=== PATIENT | female | born 1990 | race Caucasian/White ===

== ENCOUNTER 2023-11-28 14:19 | Inpatient (IN) | payer OTHER, MEDICAID, SELFPAY ==
[2023-11-28] VITALS (59 sets, daily range): BP systolic 95–129; BP diastolic 50–81; PULSE 96–138; RESP 9–23; TEMP 36.4–36.8; O2SAT 91–100; BMI 21.2
--- NOTE | 2023-11-28 14:42 | ED_ITS ---
HPI - General Adult General Chief complaint: Toxicology Problem Stated complaint: ETOH Withdrawl Time Seen by Provider: 11/28/23 14:41 History of Present Illness HPI narrative: 33-year-old woman presents for help with severe alcohol withdrawal. She has had seizures with withdrawal past. She states the last time she went to alcohol rehab was she believes in January of last year. She states that she typically drinks half a gal of whiskey daily. It sounds like she is staying with her uncle as her primary care is in [place]. They have been trying to wean her off the alcohol and she presents with confusion/delirium, significant tremor and increasing concerns for severe DTs. She is significantly confused, brought in by medics. No additional medical records are available Related Data Allergies Allergy/AdvReac Type Severity Reaction Status Date / Time No Known Drug Allergies Allergy Verified 11/28/23 15:18 Review of Systems Review of Systems ROS Unobtainable: Unobtainable due to mental condition Patient History Medical History (Updated 11/28/23 @ 18:28 by Jenise Irvin MD) Alcohol use disorder Exam Initial Vital Signs Initial Vital Signs: Vital Signs Pulse Rate 112 H 11/28/23 14:25 Pulse Oximetry 100 11/28/23 14:25 General: Disheveled, chronically ill-appearing, pale, significant puffiness around her eyes HEENT: Moist mucous membranes, normal sclera with reactive pupils, mild rotatory nystagmus bilaterally is appreciated Neck: No JVD, supple Respiratory: Lungs are clear to auscultation, no wheezing no rales no rhonchi. Full and symmetrical air movement Cardiac: Tachycardic without murmurs Abdomen: Soft, nontender, no flank pain Skin: Pale, cool Neurologic: She is moving all extremities, she is confused, tremulous, CIWA score is 29 (alcohol level is currently pending) Extremities: No trauma, cool peripherally Psych: Cooperative, confused Course Orders Ordered: ED Orders 11/28/23 14:46 Complete Blood Count AUTO DIFF Stat Comprehensive Metabolic Panel Stat Ethanol (ETOH) Stat Lipase Stat Magnesium Stat Urinalysis and Microscopic Stat 11/28/23 14:47 EKG-12 Lead Stat 11/28/23 15:01 CT head/brain wo con Stat Discontinued Medications Thiamine HCl 100 mg/ Sodium (Chloride) 101 mls @ 404 mls/hr IV NOW ONE Stop: 11/28/23 14:47 Last Infusion: 11/28/23 15:56 Dose: Infused Sodium Chloride (Normal Saline 0.9%) 1,000 mls @ 1,000 mls/hr IV BOLUS ONE Stop: 11/28/23 15:45 Last Admin: 11/28/23 15:21 Dose: 1,000 mls/hr Phenobarbital (Phenobarbital 65 Mg/Ml Vial) 260 mg IV NOW ONE Stop: 11/28/23 15:02 Last Admin: 11/28/23 15:21 Dose: 260 mg Vital Signs Vital signs: Vital Signs - 8 hr 11/28/23 14:25 11/28/23 14:30 11/28/23 14:30 Temperature Pulse Rate 112 H 112 H Respiratory Rate 21 Blood Pressure 118/76 Pulse Oximetry 100 100 11/28/23 14:46 11/28/23 15:00 11/28/23 15:00 Temperature 97.6 F Pulse Rate 109 H 114 H Respiratory Rate 16 20 Blood Pressure 117/71 111/68 Pulse Oximetry 100 11/28/23 15:28 11/28/23 15:28 11/28/23 15:30 Temperature Pulse Rate 116 H 117 H Respiratory Rate 18 17 Blood Pressure 126/74 Pulse Oximetry 100 100 11/28/23 15:30 11/28/23 15:35 11/28/23 15:35 Temperature Pulse Rate 113 H Respiratory Rate 15 Blood Pressure 112/65 121/73 Pulse Oximetry 100 11/28/23 15:40 11/28/23 15:40 11/28/23 15:45 Temperature Pulse Rate 110 H 109 H Respiratory Rate 16 16 Blood Pressure 117/71 Pulse Oximetry 100 100 11/28/23 15:45 11/28/23 15:50 11/28/23 15:50 Temperature Pulse Rate 115 H Respiratory Rate 16 Blood Pressure 117/72 123/80 Pulse Oximetry 100 11/28/23 15:55 11/28/23 15:55 11/28/23 16:00 Temperature Pulse Rate 109 H 113 H Respiratory Rate 16 16 Blood Pressure 114/72 Pulse Oximetry 100 99 11/28/23 16:01 11/28/23 16:01 11/28/23 16:05 Temperature Pulse Rate 113 H Respiratory Rate 15 Blood Pressure 115/81 119/60 Pulse Oximetry 99 11/28/23 16:05 11/28/23 16:10 11/28/23 16:10 Temperature Pulse Rate 114 H 112 H Respiratory Rate 16 17 Blood Pressure 116/65 Pulse Oximetry 99 100 11/28/23 16:15 11/28/23 16:15 11/28/23 16:20 Temperature Pulse Rate 104 H 102 H Respiratory Rate 18 17 Blood Pressure 108/62 Pulse Oximetry 100 100 11/28/23 16:20 Temperature Pulse Rate Respiratory Rate Blood Pressure 104/63 Pulse Oximetry Medical Decision Making Lab Data 11/28/23 15:00 11/28/23 15:00 Labs: Lab Results 11/28/23 Range/Units 15:00 WBC 2.9 L (4.5-11.0) X10^3/uL RBC 4.43 (4.0-5.2) X10^6/uL Hgb 14.4 (12.0-16.0) g/dL Hct 42.0 (36-46) % MCV 94.6 (80-100) fL MCH 32.4 (26-34) PG MCHC 34.3 (30-36) % RDW 13.5 (11.6-14.8) % Plt Count 101 L (150-400) X10^3/uL Neut % (Auto) 74.0 (50-75) % Lymph % (Auto) 23.4 L (25-40) % [place] % (Auto) 2.2 L (3-14) % Eos % (Auto) 0.0 L (2-4) % Baso % (Auto) 0.4 (0-2) % Neut # (Auto) 2100 (4188-1315) /uL Lymph # (Auto) 700 L (5962-1110) /uL [place] # (Auto) 100 (0-900) /uL Eos # (Auto) 0 (0-450) /uL Baso # (Auto) 0 (0-100) /uL Sodium 132 L (137-145) mmol/L Potassium 4.8 (3.4-5.1) mmol/L Chloride 91 L (98-107) mmol/L Carbon Dioxide 14 L (22-32) mmol/L BUN 14 (7-17) mg/dL Creatinine 0.52 (0.52-1.04) mg/dL Estimated GFR > 60 (>60) mL/min BUN/Creatinine Ratio 26.9 H (6-22) Glucose 84 (70-100) mg/dL Calcium 8.7 (8.4-10.2) mg/dL Magnesium 2.2 (1.6-2.3) mg/dL Total Bilirubin 1.4 H (0.2-1.3) mg/dL AST 363 H (14-36) IU/L ALT 180 H (<35) IU/L Alkaline Phosphatase 123 (38-126) U/L Total Protein 9.8 H (6.3-8.2) g/dL Albumin 5.3 H (3.5-5.0) g/dL Globulin 4.5 H (1.7-4.1) g/dL Albumin/Globulin Ratio 1.2 (1.0-2.8) Lipase 342 H (23-300) U/L Ethyl Alcohol 390 H ( - 10) mg/dL Imaging Data CT scan - head: Radiologist's Impression: PROCEDURE: CT HEAD/BRAIN WO CON INDICATIONS: altered mental status, alcohol intoxication, falls TECHNIQUE: Noncontrast 4.5 mm thick angled axial sections acquired from the foramen magnum to the vertex, with coronal and sagittal reformats. For radiation dose reduction, the following was used: automated exposure control, adjustment of mA and/or kV according to patient size. COMPARISON: None. FINDINGS: Image quality: Diagnostic. CSF spaces: Basal cisterns are patent. No extra-axial fluid collections. Ventricles are normal in size and shape. Brain: No midline shift. No intracranial masses or hemorrhage. Martinez-white matter interface is normal. Left temporal tip encephalomalacia is likely posttraumatic. Skull and face: Calvarium and visualized facial bones are intact, without suspicious lesions. Sinuses: Visualized sinuses and mastoids are clear. 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 No acute intracranial process. Dictated by: Luis Alberto Chowdary M.D. on 11/28/2023 at 15:52 MDM Narrative Medical decision making narrative: CC: Requesting help with alcohol withdrawal Complicating co-morbidities: History of severe alcohol use disorder, at least a 5th of whiskey daily. History of seizures with previous alcohol withdrawal Data collected from: patient Social determinants of health that may influence the patients condition: Housing situation is unclear at this point Medical records reviewed: Notes from [facility] indicate that patient has a history of alcohol withdrawal seizures, prior subarachnoid hemorrhage, history of thrombocytopenia. Most recent records are from 2020 Differential considered: Delirium tremens, seizure, moderate alcohol withdrawal symptoms Exam documented above, pertinent findings include: Patient is significantly disheveled, tachycardic, tremulous, smelling of urine with a depends in place that is thoroughly saturated. She has mild rotatory nystagmus. Lab Test results independently reviewed as above. Pertinent findings CBC shows leukocytopenia at 2.9, no evidence of anemia platelets slightly low at 101 Chemistries are notable for AST elevated at 363, ALT elevated at 180, total bilirubin elevated at 1.4 all consistent with an alcoholic hepatitis. Lipase is at 342 Alcohol level is at 390 with CIWA score 29 Independently reviewed EKG: Sinus tachycardia at a rate of 113, QTC is 488, no acute ischemic Imaging studies independently reviewed: CT scan of the head shows posttraumatic encephalomalacia of the left temporal tip with no acute intracranial process appreciated Consultations: Discussed with Dr. Story, hospitalist. Agrees with admission, recommends beginning Precedex, ICU admission. Requests PT and INR be drawn. Treatments: Fluids, IV thiamine, CT scan and blood work. Re-evaluations: Discussed findings and concerns with patient and her aunt. Again confirmed that she does want to stay in the hospital, she will commit to staying in the hospital and will not leave against medical advice. Discussion: 33-year-old woman with severe alcohol use disorder significant problems with withdrawal, currently alcohol level at 390 and significantly elevated CIWA score. CT scan of the head does not show significant pathology. She has been given phenobarbital for withdrawal symptoms. She does have an alcoholic hepatitis as well as a leukocytosis without evidence of bacterial infection. She is not hypotensive. She presents via medics requesting help with her acute alcohol detox and has needed hospitalizations previously. will discuss care with the hospitalist service. Discharge Plan Departure Patient Disposition: Admitted As Inpatient Clinical Impression: Alcohol withdrawal syndrome Qualifiers: Complication of substance-induced condition: with perceptual disturbance Q ualified Code(s): F10.932 - Alcohol use, unspecified with withdrawal with perceptual disturbance
--- NOTE | 2023-11-28 15:01 | DI.CT.S_ITS ---
PROCEDURE: CT HEAD/BRAIN WO CON INDICATIONS: altered mental status, alcohol intoxication, falls TECHNIQUE: Noncontrast 4.5 mm thick angled axial sections acquired from the foramen magnum to the vertex, with coronal and sagittal reformats. For radiation dose reduction, the following was used: automated exposure control, adjustment of mA and/or kV according to patient size. COMPARISON: None. FINDINGS: Image quality: Diagnostic. CSF spaces: Basal cisterns are patent. No extra-axial fluid collections. Ventricles are normal in size and shape. Brain: No midline shift. No intracranial masses or hemorrhage. [place]-white matter interface is normal. Left temporal tip encephalomalacia is likely posttraumatic. Skull and face: Calvarium and visualized facial bones are intact, without suspicious lesions. Sinuses: Visualized sinuses and mastoids are clear. 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 No acute intracranial process. Dictated by: Luis Alberto Chowdary M.D. on 11/28/2023 at 15:52 Approved by: Luis Alberto Chowdary M.D. on 11/28/2023 at 15:53
[2023-11-28] MEDS: THIAMINE 100 MG in SODIUM CHLORIDE 0.9% 100 ML 404 MG IV (15:21)
[2023-11-28] MEDS: PHENobarbital 65 MG/ML VIAL 260 MG IV (15:21)
[2023-11-28] MEDS: SODIUM CHLORIDE 0.9% 1,000 ML 1000 ML IV (15:21)
[2023-11-28 15:28] LABS: Add Manual Diff / Slide Review NO; Basophils Absolute Auto 0 /uL (0-100); Basophils Percent Auto 0.4 % (0-2); Eosinophils Absolute Auto 0 /uL (0-450); Hemoglobin 14.4 g/dL (12.0-16.0); Lymphocytes Absolute Auto 700 /uL (1100-4500); Lymphocytes Percent Auto 23.4 % (25-40); Mean Corpuscular HGB Conc 34.3 % (30-36); Mean Corpuscular Hemoglobin 32.4 PG (26-34); Mean Corpuscular Volume 94.6 fL (80-100); Monocytes Absolute Auto 100 /uL (0-900); Monocytes Percent Auto 2.2 % (3-14); Neutrophils Absolute Auto 2100 /uL (1500-7000); Platelet Count 101 X10^3/uL (150-400); Red Blood Cell Count 4.43 X10^6/uL (4.0-5.2); Red Cell Distribution Width 13.5 % (11.6-14.8); White Blood Cell Count 2.9 X10^3/uL (4.5-11.0)
[2023-11-28 15:44] LABS: Alanine Aminotransferase 180 IU/L (<35); Albumin 5.3 g/dL (3.5-5.0); Albumin Globulin Ratio 1.2 (1.0-2.8); Alkaline Phosphatase 123 U/L (38-126); Aspartate Aminotransferase 363 IU/L (14-36); BUN Creatinine Ratio 26.9 (6-22); Bilirubin Total 1.4 mg/dL (0.2-1.3); Blood Urea Nitrogen 14 mg/dL (7-17); Calcium 8.7 mg/dL (8.4-10.2); Carbon Dioxide 14 mmol/L (22-32); Chloride 91 mmol/L (98-107); Estimated Glomerular Filt Rate > 60 mL/min (>60); Globulin 4.5 g/dL (1.7-4.1); Glucose 84 mg/dL (70-100); Lipase 342 U/L (23-300); Magnesium 2.2 mg/dL (1.6-2.3); Potassium 4.8 mmol/L (3.4-5.1); Sodium 132 mmol/L (137-145); Total Protein 9.8 g/dL (6.3-8.2)
[2023-11-28 15:51] LABS: Ethanol (ETOH) 390 mg/dL; HEMOLYSIS 24 (0-50)
[2023-11-28] MEDS: ONDANSETRON 4 MG/2 ML INJ IV ×2 (18:12→20:26)
[2023-11-28 18:17] LABS: INR 0.9 (0.9-1.3); Prothrombin Time 9.9 SECONDS (9.4-12.5)
[2023-11-28 18:20] LABS: PTT Partial Thromboplastin Tim 33 SECONDS (25.1-36.5)
[2023-11-28] MEDS: dexmedeTOMIDine in 0.9 % NaCL 400 MCG/100 ML PLAST..BAG IV ×2 (18:27→20:21)
--- NOTE | 2023-11-28 19:13 | PC.NURSE ---
report given to rigoberto.
--- NOTE | 2023-11-28 19:15 | PC.NURSE ---
Admit Note Patient arrived to room 230 at 1900 via stretcher. Transferred to bed via slider board. Drowsy but awakens to voice, able to answer some questions. Oriented to room and to bed/tv/call light controls. Call light within reach. SpO2 in the upper 90s, RA. ST in the 130s. Pt brief and bedding saturated with urine, cleansed and new purewick/brief placed, incontinent. Seizure pads in place, suction set up in room. Precedex gtt infusing. Bed alarm on. Pt belongings in room including 2 necklaces on person and cell phone and middle school guidance counselor present.
[2023-11-28 19:24] LABS: Appearance Urine UA CLEAR; Bilirubin Urine UA NEGATIVE (NEGATIVE); Color Urine UA YELLOW; Glucose Urine UA NEGATIVE (Negative); Ketones Urine UA 3+ (NEGATIVE); Leukocyte Esterase Urine UA NEGATIVE (NEGATIVE); Nitrite Urine UA NEGATIVE (Negative); Occult Blood Urine UA 3+ (Negative); Protein Urine UA 3+ (Negative); Specific Gravity Urine UA >=1.030 (1.000-1.035)
[2023-11-28 19:36] LABS: pH Urine UA 5.5 (4.5-8.0)
[2023-11-28 19:43] LABS: Bacteria Urine None Seen; Culture Indicated Urine Cult Not Indicated; RBC Urine 1-5/HPF (0-5/HPF); Squamous Epithelial Cell Urine 0-1 /HPF (0-5/HPF); Urine Volume 10mL (spun); WBC Urine None Seen (0-5/HPF)
[2023-11-28] MEDS: LORazepam 2 MG/ML INJ IV (20:26)
[2023-11-28 20:47] LABS: MRSA (Nasal) PCR Not Detected (Not Detect)
--- NOTE | 2023-11-28 22:14 | P.HP_ITS ---
History of Present Illness History of Present Illness Date Patient Seen: 11/28/23 Time Patient Seen: 21:40 Chief complaint: ETOH Withdrawl Narrative: Declines to talk to me. Awakens to voice, post Ativan for YUMIKO 17 now tired and wants to sleep. Per ER provider She states the last time she went to alcohol rehab was she believes in January of last year. She states that she typically drinks half a gal of whiskey daily. It sounds like she is staying with her uncle as her primary care is in [place]. They have been trying to wean her off the alcohol and she presents with confusion/delirium, significant tremor and increasing concerns for severe DTs. She is significantly confused, brought in by medics. Previous records from [facility] note chronic alcohol use disorder with history of alcohol withdrawal seizure disorder, mulitple admission for alchohol withdrawal. Previously trailed on antiepilectic medications for possible epileptic syndrome not asosciated with alcohol withdrawal without adherence or improvement. ED evaluated revealed elevated EtOH level with withdrawal symptoms. 1L NS bolus, phenobarbital 260mg x1, Zofran IV x1 PFSH Medical History (Updated 11/28/23 @ 18:28 by Jenise Irvin MD) Alcohol use disorder Social History household members: family Smoking Status: Current every day smoker alcohol intake: current Meds Home Medications and Allergies Allergies Allergy/AdvReac Type Severity Reaction Status Date / Time No Known Drug Allergies Allergy Verified 11/28/23 15:18 Review of Systems Review of Systems Narrative: Unable to obtain as patient declines Exam Vital Signs (past 8 hours): - 11/28/23 14:25 11/28/23 14:30 11/28/23 14:30 Temperature Pulse Rate 112 H 112 H Respiratory Rate 21 Blood Pressure 118/76 Pulse Oximetry 100 100 Oxygen Delivery Method Oxygen Flow Rate 11/28/23 14:46 11/28/23 15:00 11/28/23 15:00 Temperature 97.6 F Pulse Rate 109 H 114 H Respiratory Rate 16 20 Blood Pressure 117/71 111/68 Pulse Oximetry 100 Oxygen Delivery Method Oxygen Flow Rate 11/28/23 15:28 11/28/23 15:28 11/28/23 15:30 Temperature Pulse Rate 116 H 117 H Respiratory Rate 18 17 Blood Pressure 126/74 Pulse Oximetry 100 100 Oxygen Delivery Method Oxygen Flow Rate 11/28/23 15:30 11/28/23 15:35 11/28/23 15:35 Temperature Pulse Rate 113 H Respiratory Rate 15 Blood Pressure 112/65 121/73 Pulse Oximetry 100 Oxygen Delivery Method Oxygen Flow Rate 11/28/23 15:40 11/28/23 15:40 11/28/23 15:45 Temperature Pulse Rate 110 H 109 H Respiratory Rate 16 16 Blood Pressure 117/71 Pulse Oximetry 100 100 Oxygen Delivery Method Oxygen Flow Rate 11/28/23 15:45 11/28/23 15:50 11/28/23 15:50 Temperature Pulse Rate 115 H Respiratory Rate 16 Blood Pressure 117/72 123/80 Pulse Oximetry 100 Oxygen Delivery Method Oxygen Flow Rate 11/28/23 15:55 11/28/23 15:55 11/28/23 16:00 Temperature Pulse Rate 109 H 113 H Respiratory Rate 16 16 Blood Pressure 114/72 Pulse Oximetry 100 99 Oxygen Delivery Method Oxygen Flow Rate 11/28/23 16:01 11/28/23 16:01 11/28/23 16:05 Temperature Pulse Rate 113 H Respiratory Rate 15 Blood Pressure 115/81 119/60 Pulse Oximetry 99 Oxygen Delivery Method Oxygen Flow Rate 11/28/23 16:05 11/28/23 16:10 11/28/23 16:10 Temperature Pulse Rate 114 H 112 H Respiratory Rate 16 17 Blood Pressure 116/65 Pulse Oximetry 99 100 Oxygen Delivery Method Oxygen Flow Rate 11/28/23 16:15 11/28/23 16:15 11/28/23 16:20 Temperature Pulse Rate 104 H 102 H Respiratory Rate 18 17 Blood Pressure 108/62 Pulse Oximetry 100 100 Oxygen Delivery Method Oxygen Flow Rate 11/28/23 16:20 11/28/23 16:55 11/28/23 16:55 Temperature Pulse Rate 123 H Respiratory Rate 15 Blood Pressure 104/63 126/73 Pulse Oximetry 99 Oxygen Delivery Method Oxygen Flow Rate 11/28/23 17:00 11/28/23 17:00 11/28/23 17:05 Temperature Pulse Rate 115 H 120 H Respiratory Rate 16 16 Blood Pressure 113/68 Pulse Oximetry 99 99 Oxygen Delivery Method Oxygen Flow Rate 11/28/23 17:05 11/28/23 17:10 11/28/23 17:10 Temperature Pulse Rate 110 H Respiratory Rate 17 Blood Pressure 113/72 110/68 Pulse Oximetry 97 Oxygen Delivery Method Oxygen Flow Rate 11/28/23 17:15 11/28/23 17:15 11/28/23 17:20 Temperature Pulse Rate 109 H 108 H Respiratory Rate 16 16 Blood Pressure 107/65 Pulse Oximetry 97 96 Oxygen Delivery Method Oxygen Flow Rate 11/28/23 17:20 11/28/23 17:25 11/28/23 17:25 Temperature Pulse Rate 109 H Respiratory Rate 17 Blood Pressure 109/65 106/63 Pulse Oximetry 96 Oxygen Delivery Method Oxygen Flow Rate 11/28/23 17:30 11/28/23 17:30 11/28/23 17:35 Temperature Pulse Rate 110 H 126 H Respiratory Rate 16 14 Blood Pressure 112/64 Pulse Oximetry 96 96 Oxygen Delivery Method Oxygen Flow Rate 11/28/23 17:35 11/28/23 17:40 11/28/23 17:40 Temperature Pulse Rate 129 H Respiratory Rate 15 Blood Pressure 122/66 111/67 Pulse Oximetry 97 Oxygen Delivery Method Oxygen Flow Rate 11/28/23 17:45 11/28/23 17:45 11/28/23 17:50 Temperature Pulse Rate 134 H 131 H Respiratory Rate 19 18 Blood Pressure 118/71 Pulse Oximetry 97 97 Oxygen Delivery Method Oxygen Flow Rate 11/28/23 17:50 11/28/23 17:55 11/28/23 17:55 Temperature Pulse Rate 138 H Respiratory Rate 17 Blood Pressure 121/73 121/77 Pulse Oximetry 96 Oxygen Delivery Method Oxygen Flow Rate 11/28/23 18:00 11/28/23 18:00 11/28/23 18:05 Temperature Pulse Rate 135 H 135 H Respiratory Rate 17 18 Blood Pressure 123/74 Pulse Oximetry 97 98 Oxygen Delivery Method Oxygen Flow Rate 11/28/23 18:05 11/28/23 18:10 11/28/23 18:10 Temperature Pulse Rate 138 H Respiratory Rate 23 Blood Pressure 123/78 128/81 Pulse Oximetry 97 Oxygen Delivery Method Oxygen Flow Rate 11/28/23 18:15 11/28/23 18:15 11/28/23 18:20 Temperature Pulse Rate 129 H 127 H Respiratory Rate 21 21 Blood Pressure 124/81 Pulse Oximetry 98 98 Oxygen Delivery Method Oxygen Flow Rate 11/28/23 18:20 11/28/23 18:25 11/28/23 18:25 Temperature Pulse Rate 121 H Respiratory Rate 18 Blood Pressure 122/79 115/73 Pulse Oximetry 99 Oxygen Delivery Method Oxygen Flow Rate 11/28/23 18:30 11/28/23 18:30 11/28/23 18:35 Temperature Pulse Rate 124 H Respiratory Rate 18 Blood Pressure 116/73 119/72 Pulse Oximetry 98 Oxygen Delivery Method Oxygen Flow Rate 11/28/23 18:40 11/28/23 18:40 11/28/23 18:45 Temperature Pulse Rate 127 H 124 H Respiratory Rate 18 16 Blood Pressure 124/67 Pulse Oximetry 97 98 Oxygen Delivery Method Oxygen Flow Rate 11/28/23 18:45 11/28/23 18:50 11/28/23 18:50 Temperature Pulse Rate 118 H Respiratory Rate 16 Blood Pressure 119/60 105/57 L Pulse Oximetry 97 Oxygen Delivery Method Oxygen Flow Rate 11/28/23 18:55 11/28/23 18:55 11/28/23 18:59 Temperature Pulse Rate 116 H 116 H Respiratory Rate 17 14 Blood Pressure 102/57 L Pulse Oximetry 97 97 Oxygen Delivery Method Oxygen Flow Rate 11/28/23 18:59 11/28/23 19:00 11/28/23 19:00 Temperature Pulse Rate 116 H Respiratory Rate 15 Blood Pressure 101/56 L 102/55 L Pulse Oximetry 97 Oxygen Delivery Method Oxygen Flow Rate 11/28/23 19:04 11/28/23 19:04 11/28/23 19:13 Temperature Pulse Rate 130 H 96 H Respiratory Rate 12 16 Blood Pressure 102/66 102/55 L Pulse Oximetry 96 Oxygen Delivery Method Oxygen Flow Rate 11/28/23 19:13 11/28/23 19:25 11/28/23 19:30 Temperature 98.2 F Pulse Rate 128 H Respiratory Rate 18 Blood Pressure 102/66 129/68 Pulse Oximetry 97 Oxygen Delivery Method Room Air Oxygen Flow Rate 0 11/28/23 19:30 11/28/23 20:00 11/28/23 20:00 Temperature Pulse Rate 131 H 131 H Respiratory Rate 21 23 Blood Pressure 121/66 Pulse Oximetry 97 96 Oxygen Delivery Method Oxygen Flow Rate 11/28/23 20:30 11/28/23 21:00 11/28/23 21:05 Temperature Pulse Rate 116 H 118 H Respiratory Rate 17 22 Blood Pressure 95/50 L Pulse Oximetry 95 91 Oxygen Delivery Method Oxygen Flow Rate 11/28/23 21:05 11/28/23 21:08 11/28/23 21:30 Temperature Pulse Rate 119 H 118 H 123 H Respiratory Rate 9 L 19 19 Blood Pressure 95/50 L Pulse Oximetry 96 96 Oxygen Delivery Method Oxygen Flow Rate 11/28/23 22:00 11/28/23 22:00 Temperature Pulse Rate 133 H Respiratory Rate 19 Blood Pressure 96/55 L Pulse Oximetry 95 Oxygen Delivery Method Oxygen Flow Rate Oxygen Delivery Method Room Air Oxygen Flow Rate 0 Const Orientation: alert Other: somnolent HENUT Head: normal to inspection Eyes EOM: EOM intact bilaterally Neck Neck: normal visual inspection Chest Chest: normal inspection of the chest Resp Effort & Inspection: normal respiratory effort Auscultation: clear to auscultation bilaterally Cardio Rate: tachycardic Rhythm: regular rhythm GI Inspection: normal to inspection Auscultation: normal bowel sounds Skin General: no rashes or lesions noted Neuro General: moves all extremities Extrem General: normal to inspection and No edema Objective Imaging CT scan - head: My impression: NAP Radiologist's impression: IMPRESSION: 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 No acute intracranial process. Dictated by: Luis Alberto Chowdary M.D. on 11/28/2023 at 15:52 Approved by: Luis Alberto Chowdary M.D. on 11/28/2023 at 15:53 Labs 11/28/23 15:00 11/28/23 15:00 Labs: Laboratory Results - last 24 hr 11/28/23 11/28/23 11/28/23 15:00 18:56 19:05 WBC 2.9 L RBC 4.43 Hgb 14.4 Hct 42.0 MCV 94.6 MCH 32.4 MCHC 34.3 RDW 13.5 Plt Count 101 L Neut % (Auto) 74.0 Lymph % (Auto) 23.4 L [place] % (Auto) 2.2 L Eos % (Auto) 0.0 L Baso % (Auto) 0.4 Neut # (Auto) 2100 Lymph # (Auto) 700 L [place] # (Auto) 100 Eos # (Auto) 0 Baso # (Auto) 0 PT 9.9 INR 0.9 APTT 33 Sodium 132 L Potassium 4.8 Chloride 91 L Carbon Dioxide 14 L BUN 14 Creatinine 0.52 Estimated GFR > 60 BUN/Creatinine Ratio 26.9 H Glucose 84 Calcium 8.7 Magnesium 2.2 Total Bilirubin 1.4 H AST 363 H ALT 180 H Alkaline Phosphatase 123 Total Protein 9.8 H Albumin 5.3 H Globulin 4.5 H Albumin/Globulin Ratio 1.2 Lipase 342 H Urine Color Yellow Urine Appearance Clear Urine pH 5.5 Ur Specific [place] >=1.030 H Urine Protein 3+ H Urine Glucose (UA) Negative Urine Ketones 3+ H Urine Occult Blood 3+ H Urine Nitrate Negative Urine Bilirubin Negative Urine Urobilinogen 1.0 Ur Leukocyte Esterase Negative Urine RBC 1-5/hpf Urine WBC None seen Ur Squamous Epith Cells 0-1 /hpf Urine Bacteria None seen Ur Culture Indicated? Cult not indicated Vol Urine Centrifuged 10ml (spun) Nasal Screen MRSA (PCR) Not detected Ethyl Alcohol 390 H Assessment & Plan Assessment and plan (1) Alcohol withdrawal syndrome: Qualifiers: Complication of substance-induced condition: with perceptual disturbance Qualified Code(s): F10.932 - Alcohol use, unspecified with withdrawal with perceptual disturbance Status: Acute Plan Acute alcohol withdrawal syndrome Chronic alcohol dependence with thrombocytopenia, elevated transaminase, elevated bilirubin, mild hyponatremia - EtOH level 390 - Lipase 342 with benign abdominal exam, no evidence of acute process - Admit to ICU, cardiac monitoring, serial neuro checks - Head CT withotu acute process, no evidence of infectious etiology for leukopenia - Precedex started in ED - continue Precedex, start CIWA with Ativan prn and Valium scheduled; wean Precedex off and titrate Valium as indicated - Clonidine prn for tachycardia - IV fluids, encourage adequate oral intake - Antiemetic prn - LA, Magnesium level pending - TeleIntensivist consulted by provider team
[2023-11-28] MEDS: diazePAM 5 MG TABLET 10 MG PO (23:33)
[2023-11-28] MEDS: cloNIDine 0.1 MG TABLET PO (23:33)
[2023-11-28] MEDS: LACTATED RINGERS 1,000 ML 100 ML IV (23:34)
[2023-11-29] VITALS (54 sets, daily range): BP systolic 84–133; BP diastolic 51–81; PULSE 79–135; RESP 13–27; TEMP 36.4–38.6; O2SAT 92–98
[2023-11-29 00:29] LABS: MRSA (Nasal) PCR Not Detected (Not Detect)
[2023-11-29 04:57] LABS: Hematocrit 27.4 % (36-46); Hemoglobin 9.6 g/dL (12.0-16.0); Mean Corpuscular Volume 94.4 fL (80-100); Platelet Count 56 X10^3/uL (150-400); Red Cell Distribution Width 13.5 % (11.6-14.8)
[2023-11-29 05:00] LABS: Lactate (Lactic Acid) 1.5 mmol/L (0.7-2.1)
[2023-11-29 05:01] LABS: Alanine Aminotransferase 103 IU/L (<35); Albumin 3.3 g/dL (3.5-5.0); Albumin Globulin Ratio 1.1 (1.0-2.8); Alkaline Phosphatase 69 U/L (38-126); Aspartate Aminotransferase 223 IU/L (14-36); Blood Urea Nitrogen 10 mg/dL (7-17); Calcium 7.7 mg/dL (8.4-10.2); Carbon Dioxide 21 mmol/L (22-32); Chloride 94 mmol/L (98-107); Estimated Glomerular Filt Rate > 60 mL/min (>60); Globulin 2.9 g/dL (1.7-4.1); Glucose 159 mg/dL (70-100); HEMOLYSIS < 15 (0-50); Magnesium 1.6 mg/dL (1.6-2.3); Potassium 4.1 mmol/L (3.4-5.1); Sodium 126 mmol/L (137-145); Total Protein 6.2 g/dL (6.3-8.2)
[2023-11-29 05:14] LABS: Add Manual Diff / Slide Review YES; White Blood Cell Count 1.9 X10^3/uL (4.5-11.0)
[2023-11-29] MEDS: LORazepam 2 MG/ML INJ IV ×4 (05:17→22:04)
[2023-11-29 05:38] LABS: Neutrophils Absolute Manual 912 /uL (3000-5900); Platelet Estimate Decreased on smear; Total Cells Counted 100
[2023-11-29 05:40] LABS: RBC Morphology Normal Morphology
[2023-11-29 07:40] LABS: BUN Creatinine Ratio 18.6 (6-22); Blood Urea Nitrogen 8 mg/dL (7-17); Calcium 7.8 mg/dL (8.4-10.2); Carbon Dioxide 25 mmol/L (22-32); Chloride 94 mmol/L (98-107); Estimated Glomerular Filt Rate > 60 mL/min (>60); Glucose 106 mg/dL (70-100); HEMOLYSIS < 15 (0-50); Sodium 126 mmol/L (137-145)
[2023-11-29] MEDS: ONDANSETRON 4 MG/2 ML INJ IV (08:07)
[2023-11-29] MEDS: diazePAM 5 MG TABLET 10 MG PO (08:09)
[2023-11-29] MEDS: FOLIC ACID 1 MG TABLET PO (08:09)
[2023-11-29] MEDS: MULTIVITAMIN 1 TABLET 1 TAB PO (08:10)
[2023-11-29] MEDS: THIAMINE 100 MG TABLET PO (08:10)
--- NOTE | 2023-11-29 08:33 | DI.RAD.S_ITS ---
PROCEDURE: XR CHEST 1V INDICATIONS: fever TECHNIQUE: One view of the chest was acquired. COMPARISON: None. FINDINGS: Surgical changes and devices: None. Lungs and pleura: Lungs are clear. No pleural effusions or pneumothorax. Mediastinum: Mediastinal contours appear normal. Heart size is normal. Bones and chest wall: No suspicious bony lesions. Overlying soft tissues appear unremarkable. IMPRESSION: No acute cardiopulmonary abnormality is seen. Dictated by: Claudine Paul M.D. on 11/29/2023 at 17:45 Approved by: Claudine Paul M.D. on 11/29/2023 at 17:46
[2023-11-29 10:09] LABS: Appearance Urine UA CLEAR; Bilirubin Urine UA NEGATIVE (NEGATIVE); Color Urine UA YELLOW; Glucose Urine UA TRACE g/dL (Negative); Ketones Urine UA 2+ (NEGATIVE); Leukocyte Esterase Urine UA NEGATIVE (NEGATIVE); Nitrite Urine UA NEGATIVE (Negative); Occult Blood Urine UA 1+ (Negative); Protein Urine UA 1+ (Negative)
[2023-11-29 10:13] LABS: pH Urine UA 6.5 (4.5-8.0)
[2023-11-29 10:22] LABS: Urine Volume 10mL (spun)
[2023-11-29 10:23] LABS: Bacteria Urine Few (2-10); Culture Indicated Urine Cult Not Indicated; RBC Urine 0-1/HPF (0-5/HPF); Squamous Epithelial Cell Urine None Seen (0-5/HPF); WBC Urine 0-1/HPF (0-5/HPF)
[2023-11-29 11:08] LABS: Pregnancy Test Urine Negative (Negative)
[2023-11-29 11:35] LABS: Lipase 265 U/L (23-300)
[2023-11-29 11:52] LABS: HCG Quantitative /Beta subunit < 2.4 mIU/mL; Procalcitonin 0.44 ng/mL (<0.5)
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
[2023-11-29] MEDS: chlordiazePOXIDE 25 MG CAPSULE 50 MG PO ×2 (12:35→17:16)
[2023-11-29] MEDS: MAGNESIUM CHLORIDE 64 MG TABLET 128 MG PO (12:35)
[2023-11-29] MEDS: PIPERACILLIN/TAZO 3.375 GM in SODIUM CHLORIDE 0.9% 100 ML IV ×2 (12:56→20:09)
[2023-11-29 14:45] LABS: Add Manual Diff / Slide Review NO; Basophils Absolute Auto 0 /uL (0-100); Basophils Percent Auto 0.5 % (0-2); Eosinophils Absolute Auto 0 /uL (0-450); Hematocrit 25.5 % (36-46); Lymphocytes Absolute Auto 900 /uL (1100-4500); Lymphocytes Percent Auto 38.3 % (25-40); Mean Corpuscular HGB Conc 35.2 % (30-36); Mean Corpuscular Hemoglobin 32.8 PG (26-34); Mean Corpuscular Volume 93.2 fL (80-100); Monocytes Absolute Auto 200 /uL (0-900); Monocytes Percent Auto 9.9 % (3-14); Neutrophils Absolute Auto 1200 /uL (1500-7000); Neutrophils Percent Auto 50.3 % (50-75); Platelet Count 47 X10^3/uL (150-400); Red Blood Cell Count 2.73 X10^6/uL (4.0-5.2); Red Cell Distribution Width 13.1 % (11.6-14.8); White Blood Cell Count 2.4 X10^3/uL (4.5-11.0)
[2023-11-29] MEDS: NICOTINE 14 PATCH 14 MG TOP (15:41)
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
[2023-11-29] MEDS: dexmedeTOMIDine in 0.9 % NaCL 400 MCG/100 ML PLAST..BAG 6.151 MCG IV (17:16)
--- NOTE | 2023-11-29 18:48 | P.PN_ITS ---
Subjective Subjective Interval history: Patient still lethargic on precedex drip. test negative. Lipase improved on recheck. Temp of 101.7F overnight, CXR and UA normal. Continue empiric zosyn until blood cutlures result negative. Exam Vital Signs (past 8 hours): - 11/29/23 11:00 11/29/23 11:00 11/29/23 11:12 Temperature Pulse Rate 116 H Respiratory Rate 24 Blood Pressure 121/70 Pulse Oximetry 97 Oxygen Delivery Method Room Air 11/29/23 11:30 11/29/23 12:00 11/29/23 12:00 Temperature Pulse Rate 104 H 97 H Respiratory Rate 18 15 Blood Pressure 101/57 L Pulse Oximetry 97 98 Oxygen Delivery Method 11/29/23 12:30 11/29/23 13:00 11/29/23 13:00 Temperature Pulse Rate 102 H 96 H Respiratory Rate 16 18 Blood Pressure 104/56 L Pulse Oximetry 96 Oxygen Delivery Method 11/29/23 13:30 11/29/23 13:44 11/29/23 14:00 Temperature 98.7 F Pulse Rate 96 H Respiratory Rate 17 Blood Pressure 133/58 L Pulse Oximetry 97 Oxygen Delivery Method 11/29/23 14:00 11/29/23 14:30 11/29/23 15:00 Temperature Pulse Rate 113 H 98 H 104 H Respiratory Rate 18 16 16 Blood Pressure Pulse Oximetry 98 97 96 Oxygen Delivery Method 11/29/23 15:00 11/29/23 15:12 11/29/23 15:30 Temperature Pulse Rate 103 H Respiratory Rate 15 Blood Pressure 119/66 Pulse Oximetry 96 Oxygen Delivery Method Room Air 11/29/23 16:00 11/29/23 16:00 11/29/23 16:00 Temperature Pulse Rate 93 H 92 H Respiratory Rate 14 14 Blood Pressure 101/59 L 101/59 L Pulse Oximetry 96 Oxygen Delivery Method 11/29/23 16:30 11/29/23 17:00 11/29/23 17:00 Temperature Pulse Rate 92 H 108 H Respiratory Rate 15 14 Blood Pressure 102/81 Pulse Oximetry 95 97 Oxygen Delivery Method 11/29/23 17:30 11/29/23 17:49 11/29/23 18:00 Temperature 99.6 F Pulse Rate 93 H Respiratory Rate 14 Blood Pressure 100/59 L Pulse Oximetry 97 Oxygen Delivery Method 11/29/23 18:00 Temperature Pulse Rate 79 Respiratory Rate 14 Blood Pressure Pulse Oximetry 95 Oxygen Delivery Method Oxygen Delivery Method Room Air Oxygen Flow Rate 0 Const Orientation: alert Other: somnolent HENGA Head: normal to inspection Eyes EOM: EOM intact bilaterally Neck Neck: normal visual inspection Chest Chest: normal inspection of the chest Resp Effort & Inspection: normal respiratory effort Auscultation: clear to auscultation bilaterally Cardio Rate: tachycardic Rhythm: regular rhythm GI Inspection: normal to inspection Auscultation: normal bowel sounds Skin General: no rashes or lesions noted Neuro General: moves all extremities Extrem General: normal to inspection and No edema Objective Labs 11/29/23 14:30 11/29/23 07:17 Labs: Laboratory Results - last 24 hr 11/28/23 11/28/23 11/28/23 18:56 19:05 23:04 WBC RBC Hgb Hct MCV MCH MCHC RDW Plt Count Neut % (Auto) Lymph % (Auto) [place] % (Auto) Eos % (Auto) Baso % (Auto) Neut # (Auto) Lymph # (Auto) [place] # (Auto) Eos # (Auto) Baso # (Auto) Total Counted Seg Neutrophils % Band Neutrophils % Lymphocytes % (Manual) Monocytes % (Manual) Eosinophils % (Manual) Neutrophils # (Manual) Platelet Estimate RBC Morphology Sodium Potassium Chloride Carbon Dioxide BUN Creatinine Estimated GFR BUN/Creatinine Ratio Glucose Lactate Calcium Magnesium Total Bilirubin AST ALT Alkaline Phosphatase Total Protein Albumin Globulin Albumin/Globulin Ratio Lipase Procalcitonin HCG, Quant Urine Color Yellow Urine Appearance Clear Urine pH 5.5 Ur Specific [place] >=1.030 H Urine Protein 3+ H Urine Glucose (UA) Negative Urine Ketones 3+ H Urine Occult Blood 3+ H Urine Nitrate Negative Urine Bilirubin Negative Urine Urobilinogen 1.0 Ur Leukocyte Esterase Negative Urine RBC 1-5/hpf Urine WBC None seen Ur Squamous Epith Cells 0-1 /hpf Urine Bacteria None seen Ur Culture Indicated? Cult not indicated Vol Urine Centrifuged 10ml (spun) Urine Test Nasal Screen MRSA (PCR) Not detected Not detected 11/29/23 11/29/23 11/29/23 04:35 07:17 09:52 WBC 1.9 L* RBC 2.90 L Hgb 9.6 L Hct 27.4 L MCV 94.4 MCH 33.0 MCHC 35.0 RDW 13.5 Plt Count 56 L Neut % (Auto) Not Reportable Lymph % (Auto) Not Reportable [place] % (Auto) Not Reportable Eos % (Auto) Not Reportable Baso % (Auto) Not Reportable Neut # (Auto) Lymph # (Auto) Not Reportable [place] # (Auto) Not Reportable Eos # (Auto) Baso # (Auto) Not Reportable Total Counted 100 Seg Neutrophils % 47.0 Band Neutrophils % 1.0 L Lymphocytes % (Manual) 41.0 Monocytes % (Manual) 9.0 Eosinophils % (Manual) 2.0 Neutrophils # (Manual) 912 L Platelet Estimate Decreased on smear RBC Morphology Normal morphology Sodium 126 L 126 L Potassium 4.1 4.0 Chloride 94 L 94 L Carbon Dioxide 21 L 25 BUN 10 8 Creatinine 0.50 L 0.43 L Estimated GFR > 60 > 60 BUN/Creatinine Ratio 20.0 18.6 Glucose 159 H 106 H Lactate 1.5 Calcium 7.7 L 7.8 L Magnesium 1.6 Total Bilirubin 1.0 AST 223 H ALT 103 H Alkaline Phosphatase 69 D Total Protein 6.2 L Albumin 3.3 L Globulin 2.9 Albumin/Globulin Ratio 1.1 Lipase 265 Procalcitonin 0.44 HCG, Quant < 2.4 Urine Color Yellow Urine Appearance Clear Urine pH 6.5 Ur Specific [place] 1.010 Urine Protein 1+ H Urine Glucose (UA) Trace H Urine Ketones 2+ H Urine Occult Blood 1+ H Urine Nitrate Negative Urine Bilirubin Negative Urine Urobilinogen 1.0 Ur Leukocyte Esterase Negative Urine RBC 0-1/hpf Urine WBC 0-1/hpf Ur Squamous Epith Cells None seen Urine Bacteria Few (2-10) H Ur Culture Indicated? Cult not indicated Vol Urine Centrifuged 10ml (spun) Urine Test Negative Nasal Screen MRSA (PCR) 11/29/23 11/29/23 10:35 14:30 WBC 2.4 L RBC 2.73 L Hgb 9.0 L Hct 25.5 L MCV 93.2 MCH 32.8 MCHC 35.2 RDW 13.1 Plt Count 47 L Neut % (Auto) 50.3 D Lymph % (Auto) 38.3 [place] % (Auto) 9.9 Eos % (Auto) 1.0 L Baso % (Auto) 0.5 Neut # (Auto) 1200 L Lymph # (Auto) 900 L [place] # (Auto) 200 Eos # (Auto) 0 Baso # (Auto) 0 Total Counted Seg Neutrophils % Band Neutrophils % Lymphocytes % (Manual) Monocytes % (Manual) Eosinophils % (Manual) Neutrophils # (Manual) Platelet Estimate RBC Morphology Sodium Potassium Chloride Carbon Dioxide BUN Creatinine Estimated GFR BUN/Creatinine Ratio Glucose Lactate Calcium Magnesium Total Bilirubin AST ALT Alkaline Phosphatase Total Protein Albumin Globulin Albumin/Globulin Ratio Lipase Procalcitonin HCG, Quant Cancelled Urine Color Urine Appearance Urine pH Ur Specific [place] Urine Protein Urine Glucose (UA) Urine Ketones Urine Occult Blood Urine Nitrate Urine Bilirubin Urine Urobilinogen Ur Leukocyte Esterase Urine RBC Urine WBC Ur Squamous Epith Cells Urine Bacteria Ur Culture Indicated? Vol Urine Centrifuged Urine Test Nasal Screen MRSA (PCR) [facility] Medical History (Updated 11/28/23 @ 18:28 by Jenise Irvin MD) Alcohol use disorder Social History household members: family Smoking Status: Current every day smoker alcohol intake: current Assessment & Plan Assessment & Plan narrative: Acute alcohol withdrawal syndrome, severe Chronic alcohol dependence with thrombocytopenia, elevated transaminase, elevated bilirubin, mild hyponatremia - EtOH level 390 - Lipase 342 with benign abdominal exam, no evidence of acute process, repeat normal - Head CT withotu acute process, no evidence of infectious etiology for leukopenia - Precedex started in ED, will continue with ativan PRN per CIWA - start librium 50mg q6h - IV fluids, encourage adequate oral intake - Antiemetic prn - LA, Magnesium level 1.6, continue trend - TeleIntensivist consulted as well Sepsis -febrile to 101.7F, WBC 2.4, unknown source -CXR and UA normal -blood cultures pending -continue zosyn for now Dispo: ICU
--- NOTE | 2023-11-29 20:36 | P.ICUMDRN_ITS ---
- Date Patient Seen: 11/29/23 :: This patient was seen via real time interactive two-way audiovisual telecommunic ation. Note: Remains on precedex gtt for alcohol withdrawal. Current RASS is -1. D/w bedside RN to titrate precedex to seek RASS goal -1 to 0.
[2023-11-30] VITALS (58 sets, daily range): BP systolic 90–139; BP diastolic 56–96; PULSE 69–123; RESP 5–33; TEMP 36.3–36.9; O2SAT 87–100
[2023-11-30] MEDS: chlordiazePOXIDE 25 MG CAPSULE 50 MG PO ×5 (00:01→23:44)
[2023-11-30] MEDS: PIPERACILLIN/TAZO 3.375 GM in SODIUM CHLORIDE 0.9% 100 ML IV ×2 (04:49→12:45)
[2023-11-30 05:53] LABS: Add Manual Diff / Slide Review NO; Basophils Absolute Auto 0 /uL (0-100); Basophils Percent Auto 0.5 % (0-2); Eosinophils Absolute Auto 0 /uL (0-450); Eosinophils Percent Auto 1.4 % (2-4); Hematocrit 25.7 % (36-46); Hemoglobin 8.9 g/dL (12.0-16.0); Lymphocytes Absolute Auto 900 /uL (1100-4500); Lymphocytes Percent Auto 37.1 % (25-40); Mean Corpuscular HGB Conc 34.5 % (30-36); Mean Corpuscular Hemoglobin 32.7 PG (26-34); Mean Corpuscular Volume 94.6 fL (80-100); Monocytes Absolute Auto 200 /uL (0-900); Monocytes Percent Auto 6.8 % (3-14); Neutrophils Absolute Auto 1300 /uL (1500-7000); Neutrophils Percent Auto 54.2 % (50-75); Platelet Count 55 X10^3/uL (150-400); Red Blood Cell Count 2.72 X10^6/uL (4.0-5.2); Red Cell Distribution Width 13.4 % (11.6-14.8); White Blood Cell Count 2.5 X10^3/uL (4.5-11.0)
[2023-11-30 06:05] LABS: Alanine Aminotransferase 95 IU/L (<35); Albumin 3.2 g/dL (3.5-5.0); Albumin Globulin Ratio 1.1 (1.0-2.8); Alkaline Phosphatase 66 U/L (38-126); Aspartate Aminotransferase 201 IU/L (14-36); BUN Creatinine Ratio 10.5 (6-22); Bilirubin Total 0.8 mg/dL (0.2-1.3); Blood Urea Nitrogen 4 mg/dL (7-17); Calcium 8.6 mg/dL (8.4-10.2); Carbon Dioxide 34 mmol/L (22-32); Chloride 98 mmol/L (98-107); Estimated Glomerular Filt Rate > 60 mL/min (>60); Globulin 2.9 g/dL (1.7-4.1); Glucose 97 mg/dL (70-100); HEMOLYSIS < 15 (0-50); Magnesium 1.7 mg/dL (1.6-2.3); Potassium 3.1 mmol/L (3.4-5.1); Sodium 132 mmol/L (137-145); Total Protein 6.1 g/dL (6.3-8.2)
[2023-11-30] MEDS: MULTIVITAMIN 1 TABLET 1 TAB PO (08:47)
[2023-11-30] MEDS: THIAMINE 100 MG TABLET PO (08:48)
[2023-11-30] MEDS: NICOTINE 14 PATCH 14 MG TOP (08:48)
[2023-11-30] MEDS: FOLIC ACID 1 MG TABLET PO (08:48)
[2023-11-30] MEDS: MAGNESIUM SULFATE 2 GM/50 ML PIGGYBACK IV (09:54)
[2023-11-30] MEDS: POTASSIUM CHLORIDE IN WATER 10 MEQ/100 ML PIGGYBACK 100 MEQ IV ×4 (09:55→12:45)
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
--- NOTE | 2023-11-30 11:49 | DIET.CONS ---
Dietary Consultation Note Admission Date: 11/28/2023 18:35 Assessment: 33 y F admitted for alcohol withdrawal. Nutrition screened for low BMI. Met with pt at bedside. Pt is requesting food, informed RN as pt's diet order at time was clears. Dietary recall: she usually has 1 meal/eating time per day. Common foods include Quest bars, Fiber one cereals with blueberries, or sandwich. Majority of calories from 1/2 gal of whiskey she reported consuming daily in ER. She reports suffering from eating disorder like thoughts making it difficult to consume adequate intake in the past. Reports trying to gain weight, was 90 lb is now 115 lb. Ht: 170.18 cm Wt: 52.7 kg BMI: 21.2 UBW: Last BM: 11/28/23 (11/28/23 19:25) MNA: [place] Score: 17 Diet: 11/29/23 Dinner Clear Liquid Diet Diet Modifications: 11/30/23 Lunch General (Regular) Diet Diet Modifications: Food Texture: Level 7 - Regular Liquid Consistency: Level 0 - Thin Labs: RBC 2.72 X10^6/uL (4.0-5.2) L 11/30/23 05:45 Hgb 8.9 g/dL (12.0-16.0) L 11/30/23 05:45 Hct 25.7 % (36-46) L 11/30/23 05:45 Creatinine 0.38 mg/dL (0.52-1.04) L 11/30/23 05:45 Lactate 1.5 mmol/L (0.7-2.1) 11/29/23 04:35 Nutrition Diagnosis: Severe Chronic Protein Calorie Malnutrition r/t excessive alcohol intake as evidenced by <75% energy intake intake for > 1 month and majority of calories from alcohol (severe), substance withdrawal with high CIWA scores (15, 11), BMI of 18.2 (underweight). The patient is at much higher risk for medical and surgical complications because of their malnutrition. This increases the difficulty and complexity of medical and surgical interventions and increases the chances of poor outcomes such as morbidity and mortality. Interventions: 1. Encouraged adequate intake, multiple meals/day, high in protein and kcals 2. Assess for opportunity for further nutrition therapy as pt improves EER: [id number] kcals/day (30-35 kcals/kg) 80-90 g protein/day (1.5-1.7 g/kg) Monitoring/Evaluations: PO intakes, weight Electronically Signed by: Mercedes Daniels 11/30/23 11:49 Clinical Dietitian [address] [address]
[2023-11-30] MEDS: LORazepam 1 MG TABLET PO (14:54)
--- NOTE | 2023-11-30 16:03 | P.TELICUPN_ITS ---
Subjective Subjective IF CAMERA ACTIVATED, patient seen via real-time interactive audiovisual communication: Camera activated Consent obtained for tele-patented hogshead assembler care: Yes Patient Location: ICU Provider location (State): [place] Other participants/roles: RN Interval history: pt remains on precedex gtt this AM. she is improved though, and on low dose precedex. Current Medications Current Medications Medications: Home Medications buspirone 15 mg tablet 15 mg PO BID 11/29/23 [History] cholecalciferol (vitamin D3) 25 mcg (1,000 unit) capsule PO 11/29/23 [History] clonidine HCl 0.1 mg tablet 0.1 mg PO 3XD 11/29/23 [History] folic acid 1 mg tablet 1 mg PO DAILY 11/29/23 [History] gabapentin 300 mg capsule 300 mg PO 3XD 11/29/23 [History] gabapentin 400 mg capsule 400 mg PO 3XD 11/29/23 [History] hydroxyzine HCl 25 mg tablet 25 mg PO 3XD PRN anxiety 11/29/23 [History] norgestimate 0.25 mg-ethinyl estradiol 35 mcg tablet 1 tab PO DAILY 11/29/23 [History] vits no.130-ferrous fum 27 mg iron-folic acid 800 mcg tablet ( Vitamin) 1 tab PO DAILY 11/29/23 [History] sertraline 25 mg tablet PO 11/29/23 [History] thiamine HCl (vitamin B1) 100 mg tablet (Vitamin B-1) 100 mg PO DAILY 11/29/23 [History] Visit Medications (administered) Generic Name Dose Route Start Last Admin Trade Name Freq PRN Reason Stop Dose Admin Chlordiazepoxide HCl 50 mg 11/29/23 12:00 11/30/23 11:56 Chlordiazepoxide 25 Mg Capsule PO 50 mg Q6HR LARY Administration Folic Acid 1 mg 11/29/23 09:00 11/30/23 08:48 Folic Acid 1 Mg Tablet PO 1 mg DAILY LARY Administration Lorazepam 0 mg 11/28/23 19:13 11/29/23 22:04 Lorazepam 2 Mg/Ml Inj IV 2 mg CIWAPRN PRN Administration Alcohol Withdrawal Protocol Lorazepam 0 mg 11/28/23 19:13 11/30/23 14:54 Lorazepam 1 Mg Tablet PO 2 mg CIWAPRN PRN Administration Alcohol Withdrawal Protocol Multivitamins 1 tab 11/29/23 09:00 11/30/23 08:47 Multivitamin 1 Tablet PO 1 tab DAILY LARY Administration Thiamine HCl 100 mg 11/29/23 09:00 11/30/23 08:48 Thiamine 100 Mg Tablet PO 12/02/23 09:01 100 mg DAILY LARY Administration Objective Labs 11/30/23 05:45 11/30/23 05:45 Labs: Laboratory Results - last 24 hr 11/30/23 05:45 WBC 2.5 L RBC 2.72 L Hgb 8.9 L Hct 25.7 L MCV 94.6 MCH 32.7 MCHC 34.5 RDW 13.4 Plt Count 55 L Neut % (Auto) 54.2 Lymph % (Auto) 37.1 [place] % (Auto) 6.8 Eos % (Auto) 1.4 L Baso % (Auto) 0.5 Neut # (Auto) 1300 L Lymph # (Auto) 900 L [place] # (Auto) 200 Eos # (Auto) 0 Baso # (Auto) 0 Sodium 132 L Potassium 3.1 L Chloride 98 Carbon Dioxide 34 H BUN 4 L Creatinine 0.38 L Estimated GFR > 60 BUN/Creatinine Ratio 10.5 Glucose 97 Calcium 8.6 Magnesium 1.7 Total Bilirubin 0.8 AST 201 H ALT 95 H Alkaline Phosphatase 66 Total Protein 6.1 L Albumin 3.2 L Globulin 2.9 Albumin/Globulin Ratio 1.1 Exam Vital Signs (past 8 hours): - 11/30/23 08:30 11/30/23 09:00 11/30/23 09:00 Pulse Rate 75 91 H Respiratory Rate 10 L 16 Blood Pressure 105/77 Pulse Oximetry 100 100 Oxygen Delivery Method 11/30/23 09:30 11/30/23 10:00 11/30/23 10:00 Pulse Rate 89 85 Respiratory Rate 19 8 L Blood Pressure 99/69 99/69 Pulse Oximetry 100 99 Oxygen Delivery Method 11/30/23 10:30 11/30/23 11:00 11/30/23 11:00 Pulse Rate 77 82 Respiratory Rate 23 11 L Blood Pressure Pulse Oximetry 100 100 Oxygen Delivery Method Room Air 11/30/23 11:00 11/30/23 11:30 11/30/23 12:00 Pulse Rate 84 93 H Respiratory Rate 16 17 Blood Pressure 90/62 Pulse Oximetry 100 100 Oxygen Delivery Method 11/30/23 12:24 11/30/23 12:24 11/30/23 12:30 Pulse Rate 88 95 H Respiratory Rate 16 18 Blood Pressure 108/76 Pulse Oximetry 97 87 L Oxygen Delivery Method 11/30/23 13:00 11/30/23 13:01 11/30/23 13:01 Pulse Rate 104 H 104 H Respiratory Rate 18 20 Blood Pressure 135/86 135/86 Pulse Oximetry 89 L 89 L Oxygen Delivery Method 11/30/23 13:30 11/30/23 14:00 11/30/23 14:00 Pulse Rate 89 94 H Respiratory Rate 15 5 L Blood Pressure 106/73 Pulse Oximetry 98 96 Oxygen Delivery Method 11/30/23 14:30 11/30/23 15:00 11/30/23 15:30 Pulse Rate 88 100 H 100 H Respiratory Rate 18 21 15 Blood Pressure Pulse Oximetry 99 99 100 Oxygen Delivery Method 11/30/23 15:58 11/30/23 15:58 11/30/23 16:00 Pulse Rate 101 H 106 H Respiratory Rate 17 18 Blood Pressure 119/80 119/80 Pulse Oximetry 100 100 Oxygen Delivery Method Oxygen Delivery Method Room Air Oxygen Flow Rate 0 Narrative Exam Narrative: pt on precedex gtt she is awake, conversive but ill appearing tachycardic on monitor Assessment & Plan Assessment and plan (1) Alcohol withdrawal syndrome: Qualifiers: Complication of substance-induced condition: with perceptual disturbance Qualified Code(s): F10.932 - Alcohol use, unspecified with withdrawal with perceptual disturbance Status: Acute Plan continue precedex gtt she is on librium adat IVF thiamine and folic acid dvt ppx total cct 35 min
[2023-11-30] MEDS: ONDANSETRON 4 MG/2 ML INJ IV (16:21)
--- NOTE | 2023-11-30 16:43 | PM.PN.1 ---
Subjective Subjective Interval history: Patient more awake and alert today. Able to situp and eat a sandwich. She is very anxious to vape. Increased her nicotine patch. Precedex weaned off and downgraded from ICU. Exam Vital Signs (past 8 hours): - 11/30/23 09:00 11/30/23 09:00 11/30/23 09:30 Pulse Rate 91 H 89 Respiratory Rate 16 19 Blood Pressure 105/77 Pulse Oximetry 100 100 Oxygen Delivery Method 11/30/23 10:00 11/30/23 10:00 11/30/23 10:30 Pulse Rate 85 77 Respiratory Rate 8 L 23 Blood Pressure 99/69 99/69 Pulse Oximetry 99 100 Oxygen Delivery Method 11/30/23 11:00 11/30/23 11:00 11/30/23 11:00 Pulse Rate 82 Respiratory Rate 11 L Blood Pressure 90/62 Pulse Oximetry 100 Oxygen Delivery Method Room Air 11/30/23 11:30 11/30/23 12:00 11/30/23 12:24 Pulse Rate 84 93 H 88 Respiratory Rate 16 17 16 Blood Pressure Pulse Oximetry 100 100 97 Oxygen Delivery Method 11/30/23 12:24 11/30/23 12:30 11/30/23 13:00 Pulse Rate 95 H 104 H Respiratory Rate 18 18 Blood Pressure 108/76 Pulse Oximetry 87 L 89 L Oxygen Delivery Method 11/30/23 13:01 11/30/23 13:01 11/30/23 13:30 Pulse Rate 104 H 89 Respiratory Rate 20 15 Blood Pressure 135/86 135/86 Pulse Oximetry 89 L 98 Oxygen Delivery Method 11/30/23 14:00 11/30/23 14:00 11/30/23 14:30 Pulse Rate 94 H 88 Respiratory Rate 5 L 18 Blood Pressure 106/73 Pulse Oximetry 96 99 Oxygen Delivery Method 11/30/23 15:00 11/30/23 15:30 11/30/23 15:58 Pulse Rate 100 H 100 H Respiratory Rate 21 15 Blood Pressure 119/80 Pulse Oximetry 99 100 Oxygen Delivery Method 11/30/23 15:58 11/30/23 16:00 Pulse Rate 101 H 106 H Respiratory Rate 17 18 Blood Pressure 119/80 Pulse Oximetry 100 100 Oxygen Delivery Method Oxygen Delivery Method Room Air Oxygen Flow Rate 0 Const Orientation: alert Other: tremulous HENMT Head: normal to inspection Eyes EOM: EOM intact bilaterally Neck Neck: normal visual inspection Chest Chest: normal inspection of the chest Resp Effort & Inspection: normal respiratory effort Auscultation: clear to auscultation bilaterally Cardio Rate: tachycardic Rhythm: regular rhythm GI Inspection: normal to inspection Auscultation: normal bowel sounds Skin General: no rashes or lesions noted Neuro General: moves all extremities Extrem General: normal to inspection and No edema Objective Labs 11/30/23 05:45 11/30/23 05:45 Labs: Laboratory Results - last 24 hr 11/30/23 05:45 WBC 2.5 L RBC 2.72 L Hgb 8.9 L Hct 25.7 L MCV 94.6 MCH 32.7 MCHC 34.5 RDW 13.4 Plt Count 55 L Neut % (Auto) 54.2 Lymph % (Auto) 37.1 [place] % (Auto) 6.8 Eos % (Auto) 1.4 L Baso % (Auto) 0.5 Neut # (Auto) 1300 L Lymph # (Auto) 900 L [place] # (Auto) 200 Eos # (Auto) 0 Baso # (Auto) 0 Sodium 132 L Potassium 3.1 L Chloride 98 Carbon Dioxide 34 H BUN 4 L Creatinine 0.38 L Estimated GFR > 60 BUN/Creatinine Ratio 10.5 Glucose 97 Calcium 8.6 Magnesium 1.7 Total Bilirubin 0.8 AST 201 H ALT 95 H Alkaline Phosphatase 66 Total Protein 6.1 L Albumin 3.2 L Globulin 2.9 Albumin/Globulin Ratio 1.1 [facility] Medical History (Updated 11/28/23 @ 18:28 by Jenise Irvin MD) Alcohol use disorder Social History household members: family Smoking Status: Current every day smoker alcohol intake: current Assessment & Plan Assessment & Plan narrative: Acute alcohol withdrawal syndrome, severe Chronic alcohol dependence with thrombocytopenia, elevated transaminase, elevated bilirubin, mild hyponatremia - EtOH level 390 - Lipase 342 with benign abdominal exam, no evidence of acute process, repeat normal - Head CT withotu acute process, no evidence of infectious etiology for leukopenia - Precedex started in ED and now weaned off, will continue with ativan PRN per CIWA - started librium 50mg q6h - IV fluids, encourage adequate oral intake - Antiemetic prn - LA, Magnesium level 1.6, continue trend Daily vape use -nicotine patch Sepsis ruled out -febrile to 101.7F, WBC 2.4, unknown source -CXR and UA normal -blood cultures negative -zosyn now stopped Dispo: Downgraded from ICU. 2-3 days.
[2023-11-30] MEDS: LORazepam 2 MG/ML INJ IV ×3 (17:03→23:43)
[2023-12-01] VITALS (53 sets, daily range): BP systolic 90–122; BP diastolic 51–90; PULSE 64–121; RESP 12–34; TEMP 36.6–37.2; O2SAT 96–100
[2023-12-01] MEDS: LORazepam 2 MG/ML INJ IV ×4 (02:00→04:21)
[2023-12-01] MEDS: ONDANSETRON 4 MG/2 ML INJ IV (03:16)
[2023-12-01 04:57] LABS: Add Manual Diff / Slide Review NO; Basophils Absolute Auto 0 /uL (0-100); Basophils Percent Auto 0.4 % (0-2); Eosinophils Absolute Auto 0 /uL (0-450); Hematocrit 28.1 % (36-46); Hemoglobin 9.5 g/dL (12.0-16.0); Lymphocytes Absolute Auto 1000 /uL (1100-4500); Lymphocytes Percent Auto 29.5 % (25-40); Mean Corpuscular HGB Conc 33.7 % (30-36); Mean Corpuscular Hemoglobin 32.1 PG (26-34); Mean Corpuscular Volume 95.4 fL (80-100); Monocytes Absolute Auto 300 /uL (0-900); Monocytes Percent Auto 9.6 % (3-14); Neutrophils Absolute Auto 2100 /uL (1500-7000); Neutrophils Percent Auto 59.5 % (50-75); Platelet Count 71 X10^3/uL (150-400); Red Blood Cell Count 2.95 X10^6/uL (4.0-5.2); Red Cell Distribution Width 13.1 % (11.6-14.8); White Blood Cell Count 3.6 X10^3/uL (4.5-11.0)
[2023-12-01 05:10] LABS: Alanine Aminotransferase 91 IU/L (<35); Albumin 3.5 g/dL (3.5-5.0); Albumin Globulin Ratio 1.1 (1.0-2.8); Alkaline Phosphatase 78 U/L (38-126); Aspartate Aminotransferase 162 IU/L (14-36); Bilirubin Total 0.5 mg/dL (0.2-1.3); Blood Urea Nitrogen 6 mg/dL (7-17); Calcium 8.7 mg/dL (8.4-10.2); Carbon Dioxide 32 mmol/L (22-32); Chloride 98 mmol/L (98-107); Estimated Glomerular Filt Rate > 60 mL/min (>60); Globulin 3.2 g/dL (1.7-4.1); Glucose 129 mg/dL (70-100); HEMOLYSIS < 15 (0-50); Magnesium 1.7 mg/dL (1.6-2.3); Potassium 3.1 mmol/L (3.4-5.1); Sodium 134 mmol/L (137-145); Total Protein 6.7 g/dL (6.3-8.2)
[2023-12-01] MEDS: chlordiazePOXIDE 25 MG CAPSULE 50 MG PO ×4 (06:20→23:16)
--- NOTE | 2023-12-01 06:56 | PC.NURSE ---
Patient did not rest at all throughout the night. Alert and intermittently confused throughout the night, adamant and very anxious. Very weak tremulous. VSS, SR-ST, tolerating RA. Tolerating diet and excessively thirsty, zofran given x1. Rios intact output >3000 throughout the night. Midline to OLLIE. Patient impulsive trying to get out of bed constantly. Incontinent on bowel multiple times throughout the night. Bed alarm for safety. Call light within reach. CIWA 5-22 throughout the night, protocol followed. Patient reports having no pain.
--- NOTE | 2023-12-01 07:25 | PM.PN.1 ---
Subjective Subjective Interval history: She notes some neuropathy pain in her feet. She states that she lives in [place]. She denies any shortness a breath. Exam Vital Signs (past 8 hours): - 11/30/23 23:30 11/30/23 23:43 11/30/23 23:43 Temperature Pulse Rate 114 H 118 H Respiratory Rate 16 23 Blood Pressure 116/74 Pulse Oximetry 99 12/01/23 00:00 12/01/23 00:00 12/01/23 00:03 Temperature 98.3 F Pulse Rate 107 H 92 H Respiratory Rate 21 20 Blood Pressure Pulse Oximetry 100 12/01/23 00:30 12/01/23 01:00 12/01/23 01:30 Temperature Pulse Rate 96 H 114 H 111 H Respiratory Rate 18 17 21 Blood Pressure Pulse Oximetry 98 98 99 12/01/23 02:00 12/01/23 02:20 12/01/23 02:30 Temperature Pulse Rate 121 H 100 H 99 H Respiratory Rate 18 22 17 Blood Pressure Pulse Oximetry 99 100 12/01/23 03:00 12/01/23 03:30 12/01/23 04:00 Temperature Pulse Rate 105 H 106 H 112 H Respiratory Rate 29 H 16 22 Blood Pressure Pulse Oximetry 12/01/23 04:00 12/01/23 04:00 12/01/23 04:06 Temperature 99 F Pulse Rate 102 H 90 Respiratory Rate 13 21 Blood Pressure Pulse Oximetry 100 12/01/23 04:06 12/01/23 04:15 12/01/23 04:30 Temperature Pulse Rate 97 H 100 H Respiratory Rate 22 26 H Blood Pressure 120/84 120/84 Pulse Oximetry 12/01/23 04:41 Temperature Pulse Rate 84 Respiratory Rate 20 Blood Pressure Pulse Oximetry Oxygen Delivery Method Room Air Oxygen Flow Rate 0 Narrative Exam Narrative: NAD, awake and answering questions. Cachectic. She appears chronically ill. Lungs are clear, normal rate and effort. Heart is regular, no murmur gallop or rub. Abdomen is soft, non distended. Extremities are free of edema. Objective Labs 12/01/23 04:30 12/01/23 04:30 Labs: Laboratory Results - last 24 hr 12/01/23 04:30 WBC 3.6 L RBC 2.95 L Hgb 9.5 L Hct 28.1 L MCV 95.4 MCH 32.1 MCHC 33.7 RDW 13.1 Plt Count 71 L Neut % (Auto) 59.5 Lymph % (Auto) 29.5 [place] % (Auto) 9.6 Eos % (Auto) 1.0 L Baso % (Auto) 0.4 Neut # (Auto) 2100 Lymph # (Auto) 1000 L [place] # (Auto) 300 Eos # (Auto) 0 Baso # (Auto) 0 Sodium 134 L Potassium 3.1 L Chloride 98 Carbon Dioxide 32 BUN 6 L Creatinine 0.40 L Estimated GFR > 60 BUN/Creatinine Ratio 15.0 Glucose 129 H Calcium 8.7 Magnesium 1.7 Total Bilirubin 0.5 AST 162 H ALT 91 H Alkaline Phosphatase 78 Total Protein 6.7 Albumin 3.5 Globulin 3.2 Albumin/Globulin Ratio 1.1 [facility] Medical History (Updated 11/28/23 @ 18:28 by Jenise Irvin MD) Alcohol use disorder Social History household members: family Smoking Status: Current every day smoker alcohol intake: current Assessment & Plan Assessment & Plan narrative: 1. Severe withdrawal syndrome, present on admission and active. -CIWA and Precedex. -continue supportive measures. -vitamin repletion. 2. Chronic alcohol dependence, present on admission and active. - EtOH level 390 - Lipase 342 with benign abdominal exam, no evidence of acute process, repeat normal - Head CT with out acute process, no evidence of infectious etiology for leukopenia - Precedex started in ED and now weaned off, will continue with ativan PRN per CIWA - started librium 50mg q6h - LA, Magnesium level 1.6, continue trend 3. Hypokalemia, active. -replace and follow. 4. Hyponatremia, active -saline and follow. 5. Severe Chronic Protein Calorie Malnutrition r/t excessive alcohol intake as evidenced by <75% energy intake intake for > 1 month and majority of calories from alcohol (severe), substance withdrawal with high CIWA scores (15, 11), BMI of 18.2 (underweight). 6. Nicotine dependence (Daily vape use), active. -nicotine patch Sepsis ruled out -febrile to 101.7F, WBC 2.4, unknown source -CXR and UA normal -blood cultures negative -zosyn now stopped DISPO: She is still in fairly severe withdrawal, anticipate discharge in 2-3 days. Possibly December 03.
[2023-12-01] MEDS: POTASSIUM CHLORIDE 20 MEQ TAB 40 MEQ PO (07:31)
[2023-12-01] MEDS: dexmedeTOMIDine in 0.9 % NaCL 400 MCG/100 ML PLAST..BAG IV (07:32)
[2023-12-01] MEDS: MULTIVITAMIN 1 TABLET 1 TAB PO (08:14)
[2023-12-01] MEDS: NICOTINE 14 PATCH 21 MG TOP (08:14)
[2023-12-01] MEDS: THIAMINE 100 MG TABLET PO (08:14)
[2023-12-01] MEDS: FOLIC ACID 1 MG TABLET PO (08:14)
--- NOTE | 2023-12-01 08:53 | CM.DPC ---
DCP Cont.] Reviewed EMR and team rounds for pt's status updates. Pt is too altered and CIWA remains high for an FOOD SERVICE ASSOCIATE GRADY assessment at this time. Will continue to monitor and once she's stable and at cognitive baseline, we will move forward with the assessment and resources.
--- NOTE | 2023-12-01 11:54 | DI.RAD.S_ITS ---
PROCEDURE: XR CHEST 1V INDICATIONS: check for line placement TECHNIQUE: One view of the chest was acquired. COMPARISON: [facility], CR, XR CHEST 1V, 11/29/2023, 11:39. FINDINGS: Surgical changes and devices: Left PICC with the tip in the superior cavoatrial junction. Lungs and pleura: Lungs are clear. No pleural effusions or pneumothorax. Mediastinum: Mediastinal contours appear normal. Heart size is normal. Bones and chest wall: No suspicious bony lesions. Overlying soft tissues appear unremarkable. IMPRESSION: Appropriate line positioning. No pneumothorax. Dictated by: Shubham Mendoza M.D. on 12/01/2023 at 11:14 Approved by: Shubham Mendoza M.D. on 12/01/2023 at 11:17
[2023-12-01] MEDS: SODIUM CHLORIDE 0.9% FLUSH 10 ML IV (20:21)
[2023-12-02] VITALS (43 sets, daily range): BP systolic 93–114; BP diastolic 58–79; PULSE 60–95; RESP 5–23; TEMP 36.3–37.4; O2SAT 97–100
[2023-12-02] MEDS: dexmedeTOMIDine in 0.9 % NaCL 400 MCG/100 ML PLAST..BAG 5.27 MCG IV (00:58)
[2023-12-02 04:31] LABS: Add Manual Diff / Slide Review NO; Basophils Absolute Auto 0 /uL (0-100); Basophils Percent Auto 0.5 % (0-2); Eosinophils Absolute Auto 100 /uL (0-450); Eosinophils Percent Auto 2.9 % (2-4); Hematocrit 28.7 % (36-46); Hemoglobin 9.7 g/dL (12.0-16.0); Lymphocytes Absolute Auto 1300 /uL (1100-4500); Lymphocytes Percent Auto 36.8 % (25-40); Mean Corpuscular HGB Conc 33.8 % (30-36); Mean Corpuscular Hemoglobin 32.1 PG (26-34); Mean Corpuscular Volume 94.9 fL (80-100); Monocytes Absolute Auto 400 /uL (0-900); Monocytes Percent Auto 11.1 % (3-14); Neutrophils Absolute Auto 1700 /uL (1500-7000); Neutrophils Percent Auto 48.7 % (50-75); Platelet Count 103 X10^3/uL (150-400); Red Blood Cell Count 3.02 X10^6/uL (4.0-5.2); Red Cell Distribution Width 13.2 % (11.6-14.8); White Blood Cell Count 3.5 X10^3/uL (4.5-11.0)
[2023-12-02 04:44] LABS: Alanine Aminotransferase 102 IU/L (<35); Albumin 3.3 g/dL (3.5-5.0); Alkaline Phosphatase 63 U/L (38-126); Aspartate Aminotransferase 147 IU/L (14-36); BUN Creatinine Ratio 30.8 (6-22); Bilirubin Total 0.4 mg/dL (0.2-1.3); Blood Urea Nitrogen 12 mg/dL (7-17); Calcium 9.9 mg/dL (8.4-10.2); Carbon Dioxide 31 mmol/L (22-32); Chloride 102 mmol/L (98-107); Estimated Glomerular Filt Rate > 60 mL/min (>60); Globulin 3.2 g/dL (1.7-4.1); Glucose 119 mg/dL (70-100); HEMOLYSIS < 15 (0-50); Magnesium 1.8 mg/dL (1.6-2.3); Potassium 3.9 mmol/L (3.4-5.1); Sodium 136 mmol/L (137-145); Total Protein 6.5 g/dL (6.3-8.2)
[2023-12-02] MEDS: chlordiazePOXIDE 25 MG CAPSULE 50 MG PO ×3 (06:28→17:28)
--- NOTE | 2023-12-02 06:37 | PC.NURSE ---
Patient rested well throughout the night. AOX4 while awake, conversates well. Poor coordination and tremor noted. VSS, NSR, Afebrile, tolerating RA. Lungs clear to auscultation. Tolerating general diet. Voids per terry, no BM noted this shift. Double lumen PICC to MARCELA, flushes well with blood return. Precedex gtt running per protocol. Excoriation to groin area, skin tears and redness noted to coccyx, scattered bruising. Patient reports no pain. Bed alarm for safety, call light within reach.
--- NOTE | 2023-12-02 08:17 | P.PN_ITS ---
Subjective Subjective Interval history: She is little more awake today, Precedex at 0.4. No events overnight. She is still somewhat disoriented. She denies any pain. Exam Vital Signs (past 8 hours): - 12/02/23 00:30 12/02/23 01:00 12/02/23 01:00 Temperature Pulse Rate 77 75 Respiratory Rate 15 16 Blood Pressure 100/70 Pulse Oximetry 99 98 Oxygen Delivery Method 12/02/23 01:08 12/02/23 02:00 12/02/23 02:00 Temperature Pulse Rate 76 74 Respiratory Rate 13 18 Blood Pressure 105/72 Pulse Oximetry 99 98 Oxygen Delivery Method 12/02/23 02:01 12/02/23 03:00 12/02/23 03:00 Temperature Pulse Rate 73 66 Respiratory Rate 17 16 Blood Pressure 96/58 L Pulse Oximetry 98 98 Oxygen Delivery Method 12/02/23 04:00 12/02/23 04:00 12/02/23 04:00 Temperature 97.4 F L Pulse Rate Respiratory Rate Blood Pressure 101/60 Pulse Oximetry Oxygen Delivery Method Room Air 12/02/23 04:00 12/02/23 04:45 12/02/23 05:00 Temperature Pulse Rate 61 61 Respiratory Rate 16 16 Blood Pressure 106/64 Pulse Oximetry 98 98 Oxygen Delivery Method 12/02/23 05:00 Temperature Pulse Rate 60 Respiratory Rate 15 Blood Pressure Pulse Oximetry 98 Oxygen Delivery Method Oxygen Delivery Method Room Air Oxygen Flow Rate 0 Narrative Exam Narrative: NAD, alert and oriented. Slow speech. Lungs are clear, normal rate and effort. Heart is regular, no murmur gallop or rub. Abdomen is soft, non distended. Extremities are free of edema. Objective Labs 12/02/23 04:25 12/02/23 04:25 Labs: Laboratory Results - last 24 hr 12/02/23 04:25 WBC 3.5 L RBC 3.02 L Hgb 9.7 L Hct 28.7 L MCV 94.9 MCH 32.1 MCHC 33.8 RDW 13.2 Plt Count 103 L Neut % (Auto) 48.7 L Lymph % (Auto) 36.8 [place] % (Auto) 11.1 Eos % (Auto) 2.9 Baso % (Auto) 0.5 Neut # (Auto) 1700 Lymph # (Auto) 1300 [place] # (Auto) 400 Eos # (Auto) 100 Baso # (Auto) 0 Sodium 136 L Potassium 3.9 Chloride 102 Carbon Dioxide 31 BUN 12 Creatinine 0.39 L Estimated GFR > 60 BUN/Creatinine Ratio 30.8 H Glucose 119 H Calcium 9.9 Magnesium 1.8 Total Bilirubin 0.4 AST 147 H ALT 102 H Alkaline Phosphatase 63 Total Protein 6.5 Albumin 3.3 L Globulin 3.2 Albumin/Globulin Ratio 1.0 PFSH Medical History Alcohol use disorder Social History household members: family Smoking Status: Current every day smoker alcohol intake: current Assessment & Plan Assessment & Plan narrative: 1. Severe withdrawal syndrome, present on admission and active but improving. -CIWA and Precedex. Wean Precedex as able. -continue supportive measures. -vitamin repletion. -resume some home medications 2. Chronic alcohol dependence (severe alcohol use disorder), present on admission and active. - EtOH level 390 - Lipase 342 with benign abdominal exam, no evidence of acute process, repeat normal - continue Librium q.6 hours 3. Hypokalemia, improved. - follow. 4. Hyponatremia, improved. - saline and follow. 5. Severe Chronic Protein Calorie Malnutrition r/t excessive alcohol intake as evidenced by <75% energy intake intake for > 1 month and majority of calories from alcohol (severe), substance withdrawal with high CIWA scores (15, 11), BMI of 18.2 (underweight). 6. Nicotine dependence (Daily vape use), active. -nicotine patch Sepsis ruled out -febrile to 101.7F, WBC 2.4, unknown source -CXR and UA normal -blood cultures negative -zosyn now stopped DISPO: She is still in fairly severe withdrawal, anticipate discharge in 2-3 days. Possibly December 03.
[2023-12-02] MEDS: THIAMINE 100 MG TABLET PO (08:23)
[2023-12-02] MEDS: NICOTINE 14 PATCH 21 MG TOP (08:23)
[2023-12-02] MEDS: MULTIVITAMIN 1 TABLET 1 TAB PO (08:23)
[2023-12-02] MEDS: FOLIC ACID 1 MG TABLET PO (08:23)
[2023-12-02] MEDS: BUSPIRONE 5 MG TABLET 7.5 MG PO ×2 (08:46→20:40)
[2023-12-02] MEDS: GABAPENTIN 300 MG CAPSULE PO ×3 (08:48→20:40)
[2023-12-02] MEDS: cloNIDine 0.1 MG TABLET PO (08:49)
[2023-12-02] MEDS: SERTRALINE 50 MG TABLET 150 MG PO (08:52)
[2023-12-02] MEDS: PRENATAL VIT,CALC/IRON/FOLIC 1 TABLET 1 TAB PO (08:53)
[2023-12-02] MEDS: FLUTICASONE 120 SPRAY/16 GM SPRAY.SUSP NASAL (08:53)
[2023-12-02] MEDS: levETIRAcetam 250 MG TABLET 500 MG PO ×2 (08:53→20:40)
[2023-12-02] MEDS: hydrOXYzine HCL 25 MG TABLET PO (08:53)
[2023-12-02] MEDS: SODIUM CHLORIDE 0.9% FLUSH 10 ML IV ×2 (08:54→20:40)
--- NOTE | 2023-12-02 15:35 | CM.DPC ---
DCP Cont: Per MD, pt making progress and medications weaned down but pt still groggy and somewhat confused/lethargic and likely not quite medically cleared for in-depth discharge planning discussion. SW attempted a couple times to meet bedside with pt as she was sitting up in bedside chair but pt on her cell phone both times and appeared lethargic/groggy. Plan: SW to follow closely in the AM for discussion first thing regarding pt's discharge planning and GRADY assessment towards determining resources and needs. Unclear if pt will be agreeable with GRADY tx once ready for discharge. Acacia Rowan MSW
[2023-12-03] VITALS (37 sets, daily range): BP systolic 97–126; BP diastolic 58–83; PULSE 69–104; RESP 11–20; TEMP 36.3–36.9; O2SAT 97–100
[2023-12-03] MEDS: chlordiazePOXIDE 25 MG CAPSULE 50 MG PO ×4 (00:43→17:44)
[2023-12-03 05:04] LABS: Add Manual Diff / Slide Review NO; Basophils Absolute Auto 0 /uL (0-100); Basophils Percent Auto 0.6 % (0-2); Eosinophils Absolute Auto 100 /uL (0-450); Eosinophils Percent Auto 2.2 % (2-4); Hematocrit 27.8 % (36-46); Hemoglobin 9.5 g/dL (12.0-16.0); Lymphocytes Absolute Auto 1700 /uL (1100-4500); Lymphocytes Percent Auto 37.1 % (25-40); Mean Corpuscular HGB Conc 34.2 % (30-36); Mean Corpuscular Hemoglobin 32.7 PG (26-34); Mean Corpuscular Volume 95.6 fL (80-100); Monocytes Absolute Auto 700 /uL (0-900); Monocytes Percent Auto 14.7 % (3-14); Neutrophils Absolute Auto 2000 /uL (1500-7000); Neutrophils Percent Auto 45.4 % (50-75); Platelet Count 157 X10^3/uL (150-400); Red Blood Cell Count 2.91 X10^6/uL (4.0-5.2); Red Cell Distribution Width 13.4 % (11.6-14.8); White Blood Cell Count 4.5 X10^3/uL (4.5-11.0)
[2023-12-03 05:28] LABS: Alanine Aminotransferase 95 IU/L (<35); Albumin 3.2 g/dL (3.5-5.0); Alkaline Phosphatase 63 U/L (38-126); Aspartate Aminotransferase 106 IU/L (14-36); Bilirubin Total 0.4 mg/dL (0.2-1.3); Blood Urea Nitrogen 16 mg/dL (7-17); Calcium 8.9 mg/dL (8.4-10.2); Carbon Dioxide 30 mmol/L (22-32); Chloride 104 mmol/L (98-107); Estimated Glomerular Filt Rate > 60 mL/min (>60); Globulin 3.1 g/dL (1.7-4.1); Glucose 92 mg/dL (70-100); HEMOLYSIS < 15 (0-50); Magnesium 1.6 mg/dL (1.6-2.3); Potassium 3.9 mmol/L (3.4-5.1); Sodium 135 mmol/L (137-145); Total Protein 6.3 g/dL (6.3-8.2)
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
[2023-12-03] MEDS: SERTRALINE 50 MG TABLET 150 MG PO (08:43)
[2023-12-03] MEDS: NICOTINE 21 MG PATCH TOP (08:43)
[2023-12-03] MEDS: SODIUM CHLORIDE 0.9% FLUSH 10 ML IV ×2 (08:43→20:51)
[2023-12-03] MEDS: levETIRAcetam 250 MG TABLET 500 MG PO ×2 (08:43→20:50)
[2023-12-03] MEDS: FOLIC ACID 1 MG TABLET PO (08:44)
[2023-12-03] MEDS: PRENATAL VIT,CALC/IRON/FOLIC 1 TABLET 1 TAB PO (08:44)
[2023-12-03] MEDS: THIAMINE 100 MG TABLET PO (08:44)
[2023-12-03] MEDS: BUSPIRONE 5 MG TABLET 7.5 MG PO ×2 (08:44→20:50)
[2023-12-03] MEDS: MULTIVITAMIN 1 TABLET 1 TAB PO (08:44)
[2023-12-03] MEDS: GABAPENTIN 300 MG CAPSULE PO ×3 (08:44→20:50)
[2023-12-03] MEDS: MAGNESIUM CHLORIDE 64 MG TABLET 128 MG PO (09:31)
--- NOTE | 2023-12-03 11:18 | PC.NURSE ---
Day shift: Pt A&Ox4, slow, quiet speech. Dexmedetomidine titrated down as ordered (See MAR). CIWA 6. Up with PT and nursing staff, bilateral nystagmus, pt states, I have this every time I withdraw. Pt able to stand with max assist, gait belt and FWW, ataxia with steps. Reports dizziness upon standing, VSS. Pt assisted back to bed. Denies pain. Bed alarm active. Call light within reach. Care ongoing, will continue to monitor.
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
[2023-12-03] MEDS: LORazepam 1 MG TABLET PO ×2 (12:30→21:02)
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
[2023-12-03] MEDS: LORazepam 2 MG/ML INJ IV (16:27)
[2023-12-03] MEDS: ONDANSETRON 4 MG/2 ML INJ IV (16:27)
--- NOTE | 2023-12-03 19:06 | P.PN_ITS ---
Subjective Subjective Interval history: Patient still on low-dose precedex. Began having vertical beating nystagmus. Curbsided neuro who said this can happen with alcohol withdrawal and no need to look for central cause. Exam Vital Signs (past 8 hours): - 12/03/23 11:30 12/03/23 12:00 12/03/23 12:00 Temperature Pulse Rate 93 H 88 Respiratory Rate 17 15 Blood Pressure Pulse Oximetry 98 97 Oxygen Delivery Method Room Air 12/03/23 12:30 12/03/23 13:00 12/03/23 13:15 Temperature Pulse Rate 93 H 95 H 104 H Respiratory Rate 16 13 15 Blood Pressure 126/72 Pulse Oximetry 98 97 Oxygen Delivery Method 12/03/23 13:20 12/03/23 13:20 12/03/23 13:30 Temperature Pulse Rate 95 H 93 H Respiratory Rate 17 18 Blood Pressure 126/73 Pulse Oximetry 98 98 Oxygen Delivery Method 12/03/23 14:00 12/03/23 14:30 12/03/23 15:00 Temperature Pulse Rate 101 H 93 H 91 H Respiratory Rate 17 19 18 Blood Pressure Pulse Oximetry 97 98 98 Oxygen Delivery Method 12/03/23 15:30 12/03/23 16:00 12/03/23 16:00 Temperature Pulse Rate 93 H 95 H Respiratory Rate 11 L 15 Blood Pressure 116/74 Pulse Oximetry 97 98 Oxygen Delivery Method 12/03/23 16:00 12/03/23 17:04 12/03/23 17:46 Temperature 98.5 F Pulse Rate 90 Respiratory Rate 14 Blood Pressure 116/75 Pulse Oximetry Oxygen Delivery Method Room Air Oxygen Delivery Method Room Air Oxygen Flow Rate 0 Narrative Exam Narrative: NAD, alert and oriented. Slow speech. Vertical nystagmus present. Lungs are clear, normal rate and effort. Heart is regular, no murmur gallop or rub. Abdomen is soft, non distended. Extremities are free of edema. Objective Labs 12/03/23 04:47 12/03/23 04:47 Labs: Laboratory Results - last 24 hr 12/03/23 04:47 WBC 4.5 RBC 2.91 L Hgb 9.5 L Hct 27.8 L MCV 95.6 MCH 32.7 MCHC 34.2 RDW 13.4 Plt Count 157 Neut % (Auto) 45.4 L Lymph % (Auto) 37.1 Finney % (Auto) 14.7 H Eos % (Auto) 2.2 Baso % (Auto) 0.6 Neut # (Auto) 2000 Lymph # (Auto) 1700 Finney # (Auto) 700 Eos # (Auto) 100 Baso # (Auto) 0 Sodium 135 L Potassium 3.9 Chloride 104 Carbon Dioxide 30 BUN 16 Creatinine 0.41 L Estimated GFR > 60 BUN/Creatinine Ratio 39.0 H Glucose 92 Calcium 8.9 Magnesium 1.6 Total Bilirubin 0.4 AST 106 H ALT 95 H Alkaline Phosphatase 63 Total Protein 6.3 Albumin 3.2 L Globulin 3.1 Albumin/Globulin Ratio 1.0 [facility] Medical History Alcohol use disorder Social History household members: family Smoking Status: Current every day smoker alcohol intake: current Assessment & Plan Assessment & Plan narrative: 1. Severe withdrawal syndrome, present on admission and active but improving. -CIWA and Precedex. Wean Precedex as able. -continue supportive measures. -vitamin repletion. -resume some home medications -vertical nystagmus present, likely due to withdrawals 2. Chronic alcohol dependence (severe alcohol use disorder), present on admission and active. - EtOH level 390 - Lipase 342 with benign abdominal exam, no evidence of acute process, repeat normal - continue Librium q.6 hours 3. Hypokalemia, improved. - follow. 4. Hyponatremia, improved. - saline and follow. 5. Severe Chronic Protein Calorie Malnutrition r/t excessive alcohol intake as evidenced by <75% energy intake intake for > 1 month and majority of calories from alcohol (severe), substance withdrawal with high CIWA scores (15, 11), BMI of 18.2 (underweight). 6. Nicotine dependence (Daily vape use), active. -nicotine patch Sepsis ruled out -febrile to 101.7F, WBC 2.4, unknown source -CXR and UA normal -blood cultures negative -zosyn now stopped DISPO: She is still in fairly severe withdrawal, anticipate discharge in 2-3 days. Possibly December 03.
[2023-12-03] MEDS: TRAZODONE 50 MG TABLET PO (20:50)
[2023-12-04] VITALS (50 sets, daily range): BP systolic 100–104; BP diastolic 56–70; PULSE 72–107; RESP 11–29; TEMP 36.8–36.9; O2SAT 87–99
[2023-12-04] MEDS: chlordiazePOXIDE 25 MG CAPSULE 50 MG PO ×4 (01:02→17:47)
[2023-12-04] MEDS: hydrOXYzine HCL 25 MG TABLET PO ×2 (05:48→20:28)
[2023-12-04 06:09] LABS: Add Manual Diff / Slide Review NO; Basophils Absolute Auto 0 /uL (0-100); Basophils Percent Auto 0.6 % (0-2); Eosinophils Absolute Auto 100 /uL (0-450); Eosinophils Percent Auto 1.5 % (2-4); Hematocrit 28.2 % (36-46); Hemoglobin 9.6 g/dL (12.0-16.0); Lymphocytes Absolute Auto 1600 /uL (1100-4500); Mean Corpuscular HGB Conc 33.9 % (30-36); Mean Corpuscular Hemoglobin 32.5 PG (26-34); Mean Corpuscular Volume 95.8 fL (80-100); Monocytes Absolute Auto 700 /uL (0-900); Monocytes Percent Auto 17.4 % (3-14); Neutrophils Absolute Auto 1700 /uL (1500-7000); Neutrophils Percent Auto 41.5 % (50-75); Platelet Count 251 X10^3/uL (150-400); Red Blood Cell Count 2.94 X10^6/uL (4.0-5.2); Red Cell Distribution Width 13.8 % (11.6-14.8); White Blood Cell Count 4.1 X10^3/uL (4.5-11.0)
[2023-12-04 06:17] LABS: Alanine Aminotransferase 132 IU/L (<35); Albumin 3.6 g/dL (3.5-5.0); Albumin Globulin Ratio 1.1 (1.0-2.8); Alkaline Phosphatase 60 U/L (38-126); Aspartate Aminotransferase 177 IU/L (14-36); BUN Creatinine Ratio 33.3 (6-22); Bilirubin Total 0.4 mg/dL (0.2-1.3); Blood Urea Nitrogen 16 mg/dL (7-17); Calcium 8.8 mg/dL (8.4-10.2); Carbon Dioxide 30 mmol/L (22-32); Chloride 101 mmol/L (98-107); Estimated Glomerular Filt Rate > 60 mL/min (>60); Globulin 3.2 g/dL (1.7-4.1); Glucose 110 mg/dL (70-100); HEMOLYSIS < 15 (0-50); Potassium 4.1 mmol/L (3.4-5.1); Sodium 134 mmol/L (137-145); Total Protein 6.8 g/dL (6.3-8.2)
--- NOTE | 2023-12-04 07:57 | PM.PN.1 ---
Subjective Subjective Interval history: She says she feels fine. Her vision is normal. She denies any headache or numbness or weakness of arms or legs. She knows that it is November. No nausea. No hallucinations. Dr. Chowdhury noted vertical nystagmus yesterday and discussed with Dr. Villanueva of Neurology. He felt this was within the normal range of her alcohol syndrome. She is quite ataxic. Exam Vital Signs (past 8 hours): - 12/04/23 00:00 12/04/23 01:00 12/04/23 05:00 Temperature 98.5 F 98.5 F Pulse Rate 82 82 Respiratory Rate 12 12 Blood Pressure 100/56 L 101/61 Pulse Oximetry 98 99 Oxygen Delivery Method Room Air Oxygen Delivery Method Room Air Oxygen Flow Rate 0 Narrative Exam Narrative: NAD, alert and oriented. Lungs are clear, normal rate and effort. Heart is regular, no murmur gallop or rub. Abdomen is soft, non distended. Extremities are free of edema. Speech is coherent and a little bit broken up in chaz. She does have vertical nystagmus, but no diplopia. Objective Labs 12/04/23 05:55 12/04/23 05:55 Labs: Laboratory Results - last 24 hr 12/04/23 05:55 WBC 4.1 L RBC 2.94 L Hgb 9.6 L Hct 28.2 L MCV 95.8 MCH 32.5 MCHC 33.9 RDW 13.8 Plt Count 251 Neut % (Auto) 41.5 L Lymph % (Auto) 39.0 [place] % (Auto) 17.4 H Eos % (Auto) 1.5 L Baso % (Auto) 0.6 Neut # (Auto) 1700 Lymph # (Auto) 1600 [place] # (Auto) 700 Eos # (Auto) 100 Baso # (Auto) 0 Sodium 134 L Potassium 4.1 Chloride 101 Carbon Dioxide 30 BUN 16 Creatinine 0.48 L Estimated GFR > 60 BUN/Creatinine Ratio 33.3 H Glucose 110 H Calcium 8.8 Total Bilirubin 0.4 AST 177 H ALT 132 H Alkaline Phosphatase 60 Total Protein 6.8 Albumin 3.6 Globulin 3.2 Albumin/Globulin Ratio 1.1 [facility] Medical History Alcohol use disorder Social History household members: family Smoking Status: Current every day smoker alcohol intake: current Assessment & Plan Assessment & Plan narrative: 1. Severe withdrawal syndrome, present on admission and active but improving. -CIWA, Precedex weaned at 1:00 p.m. yesterday. -continue supportive measures. -vitamin repletion continues. -resume some home medications -vertical nystagmus present, likely due to withdrawals. Discussed with neuro (Struck) 12/02. 2. Chronic alcohol dependence (severe alcohol use disorder), present on admission and active. - EtOH level 390 - Lipase 342 with benign abdominal exam, no evidence of acute process, repeat normal - continue Librium q.6 hours 3. Hypokalemia, improved. - follow. 4. Hyponatremia, improved. - saline and follow. 5. Severe Chronic Protein Calorie Malnutrition r/t excessive alcohol intake as evidenced by <75% energy intake intake for > 1 month and majority of calories from alcohol (severe), substance withdrawal with high CIWA scores (15, 11), BMI of 18.2 (underweight). 6. Nicotine dependence (Daily vape use), active. -nicotine patch Sepsis ruled out -febrile to 101.7F, WBC 2.4, unknown source -CXR and UA normal -blood cultures negative -zosyn now stopped DISPO: She is still in fairly severe withdrawal, anticipate discharge in 2-3 days.
[2023-12-04] MEDS: SODIUM CHLORIDE 0.9% FLUSH 10 ML IV ×2 (09:24→20:28)
[2023-12-04] MEDS: GABAPENTIN 300 MG CAPSULE PO ×3 (09:24→20:28)
[2023-12-04] MEDS: NICOTINE 21 MG PATCH TOP (09:24)
[2023-12-04] MEDS: MULTIVITAMIN 1 TABLET 1 TAB PO (09:24)
[2023-12-04] MEDS: FOLIC ACID 1 MG TABLET PO (09:24)
[2023-12-04] MEDS: THIAMINE 100 MG TABLET PO (09:24)
[2023-12-04] MEDS: levETIRAcetam 250 MG TABLET 500 MG PO ×2 (09:25→20:28)
[2023-12-04] MEDS: SERTRALINE 50 MG TABLET 150 MG PO (09:25)
[2023-12-04] MEDS: BUSPIRONE 5 MG TABLET 7.5 MG PO ×2 (09:25→20:28)
[2023-12-04] MEDS: PRENATAL VIT,CALC/IRON/FOLIC 1 TABLET 1 TAB PO (09:26)
[2023-12-04] MEDS: ONDANSETRON 4 MG/2 ML INJ IV (09:58)
--- NOTE | 2023-12-04 12:00 | PT.IPTN ---
Current Diagnoses Alcohol use, unspecified with withdrawal with perceptual disturbance (11/28/23) Alcohol use, unspecified with withdrawal, unspecified (11/28/23) Physical Therapy Treatment Note M2 PT-IP Current Condition Start: 12/03/23 07:43 Freq: NEEDED Status: Active Protocol: Document 12/03/23 10:40 MB (Rec: 12/03/23 11:25 MB [id number]) Physical Therapy Current Condition Current Condition Evaluation Date 12/03/23 Treatment Diagnosis ETOH withdrawals with history of seizures with withdrawals M3 PT-IP Subjective Start: 12/03/23 07:43 Freq: NEEDED Status: Active Protocol: Document 12/04/23 12:47 TS (Rec: 12/04/23 13:03 TS [id number]) Subjective Physical Therapy Visit Type Type Treatment Note Visit Start Time 12:00 Visit Stop Time 12:19 Number of DRESS CUTTER Visits 1 Physical Therapy Visit Comments Patient Comments Pt found resting in bed, is agreeable to PT. M4 PT-IP Mobility and Gait Start: 12/03/23 07:43 Freq: NEEDED Status: Active Protocol: Document 12/04/23 12:47 TS (Rec: 12/04/23 13:03 TS [id number]) PT-Bed Mobility Assessment Supine to Sit Supine to Sit Standby Assistance,1 Person Assistance,Head of Bed Elevated,Bedrails Scooting Scooting to Edge of Bed Standby Assistance PT-Transfer Assessment Sit to and From Stand Sit to and from Stand Minimal Assistance,Moderate Assistance,1 Person Assistance ,Use of Upper Extremities Equipment Transfer Assistive Device Gait Belt,Front Wheeled Walker Orthotic/Prosthetic Devices or Brace: No Comments Mobility Comments Supine to sit SBA with HOB elevated for uprighting trunk. STS from bed ModA for balance , pt has some posterior leaning. She ambulated ~20' Mak with FWW, pt is unsteady and has a slow gait. pt sat back in bedside chair. STS x3 from chair ModA x1 and Mak x2 , pt continues to have some posterior leaning. Pt was left in chair, OT in room. Gait Assessment Gait Gait Assistance Required: Minimum Assistance,1 Person Assist Distance (Feet) 20 Able to Maintain Weight Bearing Status Yes During Gait Assistive Devices Assistive Device Gait Belt,Front Wheeled Walker Orthotic/Prosthetic Devices or Brace: No Gait Deviations General Gait Pattern Ataxic,Decreased Stride Length ,Decreased Feet Clearance,Step -to Gait,Wide Based Gait Factors Limiting Gait Function Factors Limiting Gait Function Abnormal Tonal Influences, Decreased Activity Tolerance, Decreased Strength,Difficulty Following Directions, Incoordination,Poor Balance, Poor Safety Awareness PT-Balance Assessment Sitting Balance and Reactions Static Sitting Balance Ability Fair Dynamic Sitting Balance Ability Fair Standing Balance and Reactions Static Standing Balance Ability Fair Dynamic Standing Balance Ability Poor Device Used RW M5 PT-IP Objective Assessments Start: 12/03/23 07:43 Freq: NEEDED Status: Active Protocol: Document 12/03/23 10:40 MB (Rec: 12/03/23 11:25 MB [id number]) Orientation Orientation/Cognition Level of Alertness Alert Orientation Name,Age,Birthday,Month,Date, Year,Day of Week,Place, Situation Language Function Ability No Deficits Noted Safety Awareness Decreased Safety Awareness Memory Description No Deficits Noted Comments Poor historian Gross Range of Motion Upper Extremity ROM Impairments Defer to OT Lower Extremity ROM Assessment Within Functional Limits Strength Comments Strength Comments Pt cannot follow commands for MMT Coordination Assessment Assessment Finger to Nose Test Severe Impairment Heel on Figueroa Test Severe Impairment M6 PT-IP Treatment Start: 12/03/23 07:43 Freq: NEEDED Status: Active Protocol: Document 12/04/23 12:47 TS (Rec: 12/04/23 13:03 TS [id number]) Physical Therapy Treatment Education Education Provided Safety M7 PT-IP Assessment and Plan Start: 12/03/23 07:43 Freq: NEEDED Status: Active Protocol: Document 12/04/23 12:47 TS (Rec: 12/04/23 13:03 TS [id number]) PT Summary Assessment and Plan Potential Rehabilitation Potential Good Summary Impairments Strength,Balance,Coordination, Bed Mobility,Transfers,Gait, Activity Tolerance Progress Towards Goals Slow Progress due to Medical Issues,Slow Progress due to Activity Tolerance Assessment Summary Patty is making some progress with her mobility but continues to be limited. She is SBA for most bed mobility with HOB elevated. STS x4 ModA /Mak for posterior leaning. She progressed her gait to ~20 'with Mak and use of FWW. PT is recommending SNF rehab at this time. Goals Bed Mobility Goal Independent Transfer Goal Independent,Cane,Front Wheeled Walker Gait Goal Independent,Cane,Front Wheel Walker Gait Distance 100 Other Goals Pt will ascend and descend at least 3 steps with rail to allow safe home entry. Days to Meet Goals 10 Frequency of Treatment Frequency Of Treatment Once a Day Treatment Plan Physical Therapy Treatment Plan Bed Mobility Training,Transfer Training,Gait Training, Therapeutic Exercise,Balance Retraining,Hot or Cold Pack, Neuromuscular Re-ed, Coordination Retraining,Manual Therapy Precautions Other Precautions fall risk, detox Weight Bearing Status Weight Bearing Status Weight Bear as Tolerated Recommendations To Nursing Amount of Assist Needed 1 Person Assist Discharge Recommendations PT Discharge Recommendations SNF Rehab Transportation Needs at Discharge Wheelchair/Cabulance
--- NOTE | 2023-12-04 12:21 | OT.IP.TRT ---
Current Diagnoses Alcohol use, unspecified with withdrawal with perceptual disturbance (11/28/23) Alcohol use, unspecified with withdrawal, unspecified (11/28/23) Occupational Therapy Treatment Note M2 OT-IP Current Condition Start: 12/03/23 17:02 Freq: Status: Active Protocol: Document 12/03/23 17:02 CGR (Rec: 12/03/23 17:14 CGR [id number]) Occupational Therapy Current Condition Current Condition Evaluation Date 12/03/23 Treatment Diagnosis ETOH withdrawl Diagnosis Onset Date 11/28/23 M3 OT- IP Subjective and Pain Start: 12/03/23 17:02 Freq: Status: Active Protocol: Document 12/04/23 14:36 CGR (Rec: 12/04/23 14:52 CGR [id number]) OT- Subjective Occupational Therapy Visit Type Type Treatment Note Visit Start Time 11:57 Visit Stop Time 12:21 Notes partial co-treat with P.T. as pt needed max x 1 in yesterdays session OT Pain Assessment Pain When Pain Assessed At Rest Pain Present Pain Present Denied Pain M4 OT- IP ADL's Start: 12/03/23 17:02 Freq: Status: Active Protocol: Document 12/04/23 14:36 CGR (Rec: 12/04/23 14:52 CGR [id number]) OT [id number] General Evaluation Self-Feeding Ability Standby Assistance Areas Needing Assistance Drinking From Cup/Glass Comments OT Self-Feeding Comments Pt able to get drink to mouth OT ADL-Grooming General Evaluation Grooming Ability Standby Assistance Areas Needing Assistance Face Washing Comments OT Grooming Comments seated in chair OT ADL-Oral Care Comments Oral Care Comments pt declined to perform as lunch was about to arrive OT ADL-Dressing General Eval Lower Body Dressing Ability Maximum Assistance Areas Needing Assistance Socks Comments OT Dressing Comments in bed OT ADL-Toileting General Evaluation Toileting Ability Total Assistance Comments OT Toileting Comments terry OT ADL-Bathing Comments OT Bathing Comments not performed M5 OT- IP IADL's Start: 12/03/23 17:02 Freq: Status: Active Protocol: Document 12/03/23 17:02 CGR (Rec: 12/03/23 17:14 CGR [id number]) OT-Instrumental Activities of Daily Living Deficits IADL Deficits Identified Deficits Home Safety Awareness Awareness of Need for Assistance at Home Decreased Awareness Ability to Problem Solve Emergency Unable to Problem Solve Situations Medication Management Medication Management Comments concerns regarding pt's abiltiy to perform safely Money Management Money Management Comments concerns regarding pt's abiltiy to perform safely Meal Preparation Meal Preparation Comments concerns regarding pt's abiltiy to perform safely Manager Sales And Marketing Manager Sales And Marketing Comments concerns regarding pt's abiltiy to perform safely Driving Driving Comments concerns regarding pt's abiltiy to perform safely M6 OT- IP Functional Cognition Start: 12/03/23 17:02 Freq: Status: Active Protocol: Document 12/03/23 17:02 CGR (Rec: 12/03/23 17:14 CGR [id number]) Cognitive Factors Limiting Selfcare Function Cognitive Ability Level of Alertness Alert Patient Orientation Name,Age,Birthday,Month,Date, Year,Day of Week,Place, Situation Attention Span Ability Capable of Focused Attention, Capable of Sustained Attention Ability to Follow Commands Able to Follow One Step Commands with Increased Time, Able to Follow One Step Commands with Repetition OT- Vision and Hearing OT- Hearing Assessment OT- Hearing Assessment WFL OT- Vision Assessment Visual Acuity WFL Visual Attentiveness WFL Occular Pursuits WFL Visual Convergence WFL Vision Assessment Comments Pt with vertical down beating nastagmus. Noted that nastagmus is worse with looking up, lessens when looking out, and minimal when looking down. Pt states that she is less dizzy when looking down. M7 OT- IP Mobility and Balance Start: 12/03/23 17:02 Freq: Status: Active Protocol: Document 12/04/23 14:36 CGR (Rec: 12/04/23 14:52 CGR [id number]) OT- Bed Mobility Assessment Supine to Sit Supine to Sit Assist Standby Assistance Scooting Scooting to Edge of Bed Moderate Assistance OT-Transfer Assessment Sit to and From Stand Sit to and from Stand Minimal Assistance,Moderate Assistance Transfers Transfer Ability Minimal Assistance Technique Transfer Destination Bed,Chair Transfer Technique Stand Step Pivot Devices Transfer Assistive Devices Gait Belt,Front Wheeled Walker Comments Mobility Comments Pt ambulated ~20 feet in the room with min a once balance obtained. OT- Gait Assessment Gait Gait Assistance Required: Minimum Assistance Assistive Devices Assistive Device Gait Belt,Front Wheeled Walker Comments Gait Ability Comments ~20 feet in room OT- Balance Assessment Sitting Balance and Reactions Static Sitting Balance Ability Good Dynamic Sitting Balance Ability Good M8 OT- IP Objective Assessments Start: 12/03/23 17:02 Freq: Status: Active Protocol: Document 12/03/23 17:02 CGR (Rec: 12/03/23 17:14 CGR [id number]) OT Gross Range of Motion Upper Extremity Range of Motion Assessment Within Functional Limits OT Strength Upper Extremity Strength Assessment Within Functional Limits Comments Strength Comments grossly 4/5 but shaky with all movement. OT- Coordination Assessment Upper Extremity Finger to Nose Test Bilateral UE Impaired Finger Tapping Test Bilateral UE Impaired Comments Coordination Comments pt unable to perform either at WFL OT-Muscle Tone Assessment Muscle Tone WNL Yes OT Sensation Assessment Edema Edema Absent M9 OT- IP Assessment and Plan Start: 12/03/23 17:02 Freq: Status: Active Protocol: Document 12/04/23 14:36 CGR (Rec: 12/04/23 14:52 CGR [id number]) OT Summary Assessment and Plan Potential Rehabilitation Potential Good Analytic Complexity at Evaluation High Summary OT Impairments Strength,Balance,Coordination, Functional Cognition, Functional Mobility,Grooming, Dressing,Toileting,Bathing, Toilet Transfers,Shower Transfers,Activity Tolerance Progress Towards Goals Progressing Toward Goals Assessment Summary Pt presents as a high complexity evaluation s/p admit for ETOH withdrawal. Pt is progressing with functional mobility on this date and was able to ambualte ~20 feet with min a. Pt then did limited ADLs seated in chair. Pt appears down at first regarding her mobility. Discussed with pt that she has made a significant leap in her abilities since yesterday and pt appears to feel better after discussion. Pt left sitting up in chair for lunch. Goals Self-Feeding Goal Independent Grooming Goal Independent Dressing Goal Independent Toileting Goal Independent Bathing Goal Independent Toilet Transfer Goal Independent Shower Transfer Goal Independent Days to Meet Goals 10 Frequency of Treatment Frequency Of Treatment Once a Day Treatment Plan OT Treatment Plan ADL Training,Functional Mobility,Vision Retraining, Patient/Family Education, Discharge Planning Other Treatment Recommendations and Next ADLs seated at sink Treatment Focus Discharge Recommendations OT Discharge Recommendations Home vs SNF Transportation Needs at Discharge Private Vehicle,Wheelchair/ Cabulance
--- NOTE | 2023-12-04 16:47 | PC.NURSE ---
1520--Juliet COAL GRADER spoke at length with pt and her grandparents re: inpatient vs outpatient therapy; literature given to pt; pt is up in the chair, calm and conversing w/ grandparents
--- NOTE | 2023-12-04 18:18 | PC.NURSE ---
pt has made improvements today in regards to nystagmus, conjugate gaze, ambulation, general strength, decreased tremors and decreased nausea; she ambulated to the bathroom and had a BM and then took a shower and washed her hair w/ asst; she has been in the chair for several hours and had both lunch and dinner while up; she and her grandparents spoke at length w/ 7th grade social studies teacher; she had one episode of nausea, which she felt was caused by her medications irritating her throat, and was relieved with milk, although she was given zofran also; her CIWA score today ranged from 1-5
[2023-12-04] MEDS: TRAZODONE 50 MG TABLET PO (20:28)
[2023-12-05] VITALS (38 sets, daily range): BP systolic 87–119; BP diastolic 57–68; PULSE 77–98; RESP 0–26; TEMP 36.6–37.2; O2SAT 94–98
[2023-12-05] MEDS: chlordiazePOXIDE 25 MG CAPSULE 50 MG PO ×3 (06:00→21:06)
[2023-12-05] MEDS: MULTIVITAMIN 1 TABLET 1 TAB PO (08:46)
[2023-12-05] MEDS: BUSPIRONE 5 MG TABLET 7.5 MG PO ×2 (08:46→21:06)
[2023-12-05] MEDS: NICOTINE 21 MG PATCH TOP (08:46)
[2023-12-05] MEDS: levETIRAcetam 250 MG TABLET 500 MG PO ×2 (08:46→21:06)
[2023-12-05] MEDS: GABAPENTIN 300 MG CAPSULE PO ×3 (08:47→21:06)
[2023-12-05] MEDS: PRENATAL VIT,CALC/IRON/FOLIC 1 TABLET 1 TAB PO (08:47)
[2023-12-05] MEDS: THIAMINE 100 MG TABLET PO (08:47)
[2023-12-05] MEDS: FOLIC ACID 1 MG TABLET PO (08:47)
[2023-12-05] MEDS: SERTRALINE 50 MG TABLET 150 MG PO (08:47)
[2023-12-05] MEDS: hydrOXYzine HCL 25 MG TABLET PO (08:48)
[2023-12-05] MEDS: SODIUM CHLORIDE 0.9% FLUSH 10 ML IV ×2 (08:57→21:06)
--- NOTE | 2023-12-05 10:35 | PT.IPTN ---
Current Diagnoses Alcohol use, unspecified with withdrawal with perceptual disturbance (11/28/23) Alcohol use, unspecified with withdrawal, unspecified (11/28/23) Physical Therapy Treatment Note M2 PT-IP Current Condition Start: 12/03/23 07:43 Freq: NEEDED Status: Active Protocol: Document 12/03/23 10:40 MB (Rec: 12/03/23 11:25 MB [id number]) Physical Therapy Current Condition Current Condition Evaluation Date 12/03/23 Treatment Diagnosis ETOH withdrawals with history of seizures with withdrawals M3 PT-IP Subjective Start: 12/03/23 07:43 Freq: NEEDED Status: Active Protocol: Document 12/05/23 11:52 TS (Rec: 12/05/23 12:07 TS [id number]) Subjective Physical Therapy Visit Type Type Treatment Note Visit Start Time 10:35 Visit Stop Time 11:13 Number of LUMBER CARRIER OPERATOR Visits 2 Physical Therapy Visit Comments Patient Comments Pt found resting in bed, is agreeable to PT. M4 PT-IP Mobility and Gait Start: 12/03/23 07:43 Freq: NEEDED Status: Active Protocol: Document 12/05/23 11:52 TS (Rec: 12/05/23 12:07 TS [id number]) PT-Bed Mobility Assessment Supine to Sit Supine to Sit Standby Assistance,1 Person Assistance,Head of Bed Elevated,Bedrails Scooting Scooting to Edge of Bed Standby Assistance PT-Transfer Assessment Sit to and From Stand Sit to and from Stand Minimal Assistance Equipment Transfer Assistive Device Gait Belt,Front Wheeled Walker Orthotic/Prosthetic Devices or Brace: No Comments Mobility Comments Supine to sit SBA with HOB elevated. pt is slow to move and requires extra time to complete. STS x2 with FWW Mka for some retroleaning coming into standing. Pt ambulated ~ 200'CGA/Mak with FWW. She intially ambulated with slow step thru gait with shorts strides, improved pace and stride length with cues. She continues to have some ataxic movement and is unsteady with gait. She performed steps x3 on step stool Mak with B handrails. Pt was left sitting EOB, RN notified. Gait Assessment Gait Gait Assistance Required: Contact Guard Assist,Minimum Assistance Distance (Feet) 200 Able to Maintain Weight Bearing Status Yes During Gait Assistive Devices Assistive Device Gait Belt,Front Wheeled Walker Orthotic/Prosthetic Devices or Brace: No Gait Deviations General Gait Pattern Ataxic,Decreased Stride Length ,Decreased Feet Clearance,Step -to Gait,Wide Based Gait Factors Limiting Gait Function Factors Limiting Gait Function Abnormal Tonal Influences, Decreased Activity Tolerance, Decreased Strength,Difficulty Following Directions, Incoordination,Poor Balance, Poor Safety Awareness Comments Gait Comments See mobility comments Stair Climbing Assessment Evaluation Level of Assist On Stairs Minimal Assistance,1 Person Assistance Devices Stair Climbing Assistive Devices Left Railing,Right Railing Technique/Endurance Stair Climbing Direction Ascend and Descend Stair Climbing Technique Step to Step Number of Steps Climbed 3 Comments Stair Climbing Comments See mobility comments PT-Balance Assessment Sitting Balance and Reactions Static Sitting Balance Ability Good Dynamic Sitting Balance Ability Fair Standing Balance and Reactions Static Standing Balance Ability Fair Dynamic Standing Balance Ability Fair Device Used FWW M5 PT-IP Objective Assessments Start: 12/03/23 07:43 Freq: NEEDED Status: Active Protocol: Document 12/03/23 10:40 MB (Rec: 12/03/23 11:25 MB [id number]) Orientation Orientation/Cognition Level of Alertness Alert Orientation Name,Age,Birthday,Month,Date, Year,Day of Week,Place, Situation Language Function Ability No Deficits Noted Safety Awareness Decreased Safety Awareness Memory Description No Deficits Noted Comments Poor historian Gross Range of Motion Upper Extremity ROM Impairments Defer to OT Lower Extremity ROM Assessment Within Functional Limits Strength Comments Strength Comments Pt cannot follow commands for MMT Coordination Assessment Assessment Finger to Nose Test Severe Impairment Heel on Figu[place]a Test Severe Impairment M6 PT-IP Treatment Start: 12/03/23 07:43 Freq: NEEDED Status: Active Protocol: Document 12/05/23 11:52 TS (Rec: 12/05/23 12:07 [id number]) Physical Therapy Treatment Education Education Provided Safety M7 PT-IP Assessment and Plan Start: 12/03/23 07:43 Freq: NEEDED Status: Active Protocol: Document 12/05/23 11:52 TS (Rec: 12/05/23 12:07 [id number]) PT Summary Assessment and Plan Potential Rehabilitation Potential Good Summary Impairments Strength,Balance,Coordination, Bed Mobility,Transfers,Gait, Activity Tolerance Progress Towards Goals Progressing Toward Goals Assessment Summary Patty is making some progress with her mobility. She continues to be SBA for bed mobility with slow movements. She performed STS x2 with Mak for some retroleaning coming into standing. She progressed her gait to ~200'CGA/Mak, continues to be unsteady but has no buckling or LOB. PT is recommending Home 24/7 vs SNF at this time. Pt would benefit from SNF rehab to progress functional mobility, strength and balance before d/c home. Goals Bed Mobility Goal Independent Transfer Goal Independent,Cane,Front Wheeled Walker Gait Goal Independent,Cane,Front Wheel Walker Gait Distance 100 Other Goals Pt will ascend and descend at least 3 steps with rail to allow safe home entry. Days to Meet Goals 10 Frequency of Treatment Frequency Of Treatment Once a Day Treatment Plan Physical Therapy Treatment Plan Bed Mobility Training,Transfer Training,Gait Training, Therapeutic Exercise,Balance Retraining,Hot or Cold Pack, Neuromuscular Re-ed, Coordination Retraining,Manual Therapy Precautions Other Precautions fall risk, detox Weight Bearing Status Weight Bearing Status Weight Bear as Tolerated Recommendations To Nursing Amount of Assist Needed 1 Person Assist Discharge Recommendations PT Discharge Recommendations Home with 24/7 Assist Available,Home Health,SNF Rehab,Home vs SNF Transportation Needs at Discharge Private Vehicle,Wheelchair/ Cabulance
[2023-12-05] MEDS: LORazepam 1 MG TABLET PO (12:06)
--- NOTE | 2023-12-05 16:51 | P.PN_ITS ---
Subjective Subjective Interval history: She says she feels fine. Her vision is normal. She denies any headache or numbness or weakness of arms or legs. She did better working with therapy, she feels a bit anxious today and tremulous, librium taper starting to wean today from 50 q6 to TID. Exam Vital Signs (past 8 hours): - 12/05/23 09:00 12/05/23 09:30 12/05/23 10:00 Temperature Pulse Rate 94 H 90 84 Respiratory Rate 13 13 11 L Blood Pressure Pulse Oximetry 12/05/23 10:30 12/05/23 11:08 12/05/23 11:30 Temperature Pulse Rate 86 98 H 94 H Respiratory Rate 17 Blood Pressure Pulse Oximetry 12/05/23 11:52 12/05/23 11:52 12/05/23 12:00 Temperature Pulse Rate 83 86 Respiratory Rate 15 19 Blood Pressure 87/61 L Pulse Oximetry 97 12/05/23 12:02 12/05/23 12:02 12/05/23 12:30 Temperature Pulse Rate 89 83 Respiratory Rate 18 13 Blood Pressure 89/61 L Pulse Oximetry 12/05/23 13:00 12/05/23 13:30 12/05/23 14:00 Temperature Pulse Rate 83 82 83 Respiratory Rate 16 8 L 15 Blood Pressure Pulse Oximetry 12/05/23 14:30 12/05/23 16:00 12/05/23 16:00 Temperature 99 F Pulse Rate 85 80 Respiratory Rate 8 L 19 Blood Pressure 119/68 119/68 Pulse Oximetry 96 Oxygen Delivery Method Room Air Oxygen Flow Rate 0 Narrative Exam Narrative: NAD, alert and oriented. Lungs are clear, normal rate and effort. Heart is regular, no murmur gallop or rub. Abdomen is soft, non distended. Extremities are free of edema. Speech is coherent and a little bit broken up in chaz. Mild peripheral tremulousness. She does have vertical nystagmus, but no diplopia. Objective Labs 12/04/23 05:55 12/04/23 05:55 [facility] Medical History Alcohol use disorder Social History household members: family Smoking Status: Current every day smoker alcohol intake: current Assessment & Plan Assessment & Plan narrative: 1. Severe withdrawal syndrome, present on admission and active but improving. -CIWA, Precedex weaned at 1:00 p.m. yesterday. Continue to wean librium, cut from 50 q6 to TID today. -added ativan prn for anxiety, in addition to CIWA protocol. -continue supportive measures. Continue MVI, folate, thiamine. -vitamin repletion continues. -resume some home medications -vertical nystagmus present, likely due to withdrawals. Discussed with neuro (Rich) 12/02. 2. Chronic alcohol dependence (severe alcohol use disorder), present on admission and active. - EtOH level 390 - Lipase 342 with benign abdominal exam, no evidence of acute process, repeat normal 3. Hypokalemia, improved. - follow. 4. Hyponatremia, improved. - improved with normal saline. now off. 5. Severe Chronic Protein Calorie Malnutrition r/t excessive alcohol intake as evidenced by <75% energy intake intake for > 1 month and majority of calories from alcohol (severe), substance withdrawal with high CIWA scores (15, 11), BMI of 18.2 (underweight). 6. Nicotine dependence (Daily vape use), active. -nicotine patch 7. Possible seizure disorder - continue home keppra 500 mg BID Sepsis ruled out -febrile to 101.7F, WBC 2.4, unknown source -CXR and UA normal -blood cultures negative -zosyn now stopped DISPO: Anticipate discharge home in 2-3 days, has intensive outpatient alcohol treatment set up with case management.
--- NOTE | 2023-12-05 17:50 | PC.NURSE ---
Addendum entered by Rosalie Malcolm R.N. 12/05/23 18:00: Gabriel d/c'd at 1009, pt voiding via toilet without issue. Original Note: Day Shift Note Pt is alert and oriented x4, speech is sometimes delayed, movement is slow. Up 1 person assist with FWW, walked in halls with PT. Denies pain. CIWA 0-1 today. Did report feeling anxious this morning, received Vistaril which she reported as effective and then received 1 mg PO ativan later this afternoon for report of same (per new order for anxiety). Up sitting in chair, interactive and frequently talking about plans for ongoing sobriety on d/c. Expresses feeling motivated to get stronger and maintain sobriety. Call light within reach, using call light appropriately to make needs known.
[2023-12-05] MEDS: TRAZODONE 50 MG TABLET PO (21:06)
[2023-12-06] VITALS (11 sets, daily range): BP systolic 87–100; BP diastolic 54–62; PULSE 75–82; RESP 12–22; TEMP 36.2–37; O2SAT 92–100
[2023-12-06] MEDS: chlordiazePOXIDE 25 MG CAPSULE 50 MG PO ×2 (06:53→14:12)
[2023-12-06] MEDS: NICOTINE 21 MG PATCH TOP (08:47)
[2023-12-06] MEDS: SODIUM CHLORIDE 0.9% FLUSH 10 ML IV ×2 (08:48→20:05)
[2023-12-06] MEDS: levETIRAcetam 250 MG TABLET 500 MG PO ×2 (08:48→20:02)
[2023-12-06] MEDS: SERTRALINE 50 MG TABLET 150 MG PO (08:48)
[2023-12-06] MEDS: THIAMINE 100 MG TABLET PO (08:48)
[2023-12-06] MEDS: BUSPIRONE 5 MG TABLET 7.5 MG PO ×2 (08:49→20:02)
[2023-12-06] MEDS: FOLIC ACID 1 MG TABLET PO (08:49)
[2023-12-06] MEDS: GABAPENTIN 300 MG CAPSULE PO ×3 (08:49→20:02)
[2023-12-06] MEDS: PRENATAL VIT,CALC/IRON/FOLIC 1 TABLET 1 TAB PO (08:49)
[2023-12-06] MEDS: MULTIVITAMIN 1 TABLET 1 TAB PO (08:49)
--- NOTE | 2023-12-06 11:42 | OT.IP.TRT ---
Current Diagnoses Alcohol use, unspecified with withdrawal with perceptual disturbance (11/28/23) Alcohol use, unspecified with withdrawal, unspecified (11/28/23) Occupational Therapy Treatment Note M2 OT-IP Current Condition Start: 12/03/23 17:02 Freq: Status: Active Protocol: Document 12/03/23 17:02 CGR (Rec: 12/03/23 17:14 CGR [id number]) Occupational Therapy Current Condition Current Condition Evaluation Date 12/03/23 Treatment Diagnosis ETOH withdrawl Diagnosis Onset Date 11/28/23 M3 OT- IP Subjective and Pain Start: 12/03/23 17:02 Freq: Status: Active Protocol: Document 12/05/23 15:36 MEGAN (Rec: 12/05/23 15:42 MEGAN [id number]) OT- Subjective Occupational Therapy Visit Type Type Treatment Note Visit Start Time 15:05 Visit Stop Time 15:32 Notes Pt reclined in bed on entrance of OT and agreeable to participating in therapy. Pt performs sup>sit with S and increased time. Sit>stand with CGA and stand pivot t/f to chair with CGA. Pt requires vcs for hand placement and safety awareness. Up in chair pt performs chair push ups 5 x 5 with rbs prn. Pt performs sit>stand with CGA and maintains standing with one hand on the walker while reaching with the other across midline, overhead, and to each side 5 x2 each UE for improved standing activity tolerance and balance to benefit functional ADLs. Occupational Therapy Visit Comments Patient Comments I walked around the nurses station today OT Pain Assessment Pain When Pain Assessed At Rest Pain Present Pain Present Denied Pain M4 OT- IP ADL's Start: 12/03/23 17:02 Freq: Status: Active Protocol: Document 12/06/23 15:23 CGR (Rec: 12/06/23 15:31 CGR [id number]) OT TBP-Bzsy-Myivxpf General Evaluation Self-Feeding Ability Independent Areas Needing Assistance Drinking From Cup/Glass Comments OT Self-Feeding Comments drinking from soda OT ADL-Grooming General Evaluation Grooming Ability Standby Assistance,Moderate Assistance Areas Needing Assistance Combing/Brushing Hair,Face Washing Comments OT Grooming Comments pt washed face in shower with sBA but needed assist with hair in the shower. Pt left sitting up in her chair and brushing out her hair. OT ADL-Oral Care Comments Oral Care Comments not performed OT ADL-Dressing General Eval Upper Body Dressing Ability Minimal Assistance Lower Body Dressing Ability Standby Assistance Areas Needing Assistance Underpants/Brief Comments OT Dressing Comments hospital gown and breif. Pt needed extra time to don breifs. OT ADL-Toileting Comments OT Toileting Comments not performed OT ADL-Bathing Bathing Type Bathing Type Shower General Evaluation Bathing Ability Moderate Assistance Areas Needing Assistance Retrieving/Setting Up Items, Wash/Dry Lower Extremities Devices Bathing Equipment Hand Held Shower Sprayer, Shower Chair with Arms Comments OT Bathing Comments Pt needed help with washing her hair and needed vc for performing all other cleaning of body parts. M5 OT- IP IADL's Start: 12/03/23 17:02 Freq: Status: Active Protocol: Document 12/03/23 17:02 CGR (Rec: 12/03/23 17:14 CGR [id number]) OT-Instrumental Activities of Daily Living Deficits IADL Deficits Identified Deficits Home Safety Awareness Awareness of Need for Assistance at Home Decreased Awareness Ability to Problem Solve Emergency Unable to Problem Solve Situations Medication Management Medication Management Comments concerns regarding pt's abiltiy to perform safely Money Management Money Management Comments concerns regarding pt's abiltiy to perform safely Meal Preparation Meal Preparation Comments concerns regarding pt's abiltiy to perform safely Web Page Designer Web Page Designer Comments concerns regarding pt's abiltiy to perform safely Driving Driving Comments concerns regarding pt's abiltiy to perform safely M6 OT- IP Functional Cognition Start: 12/03/23 17:02 Freq: Status: Active Protocol: Document 12/06/23 15:23 CGR (Rec: 12/06/23 15:31 CGR [id number]) Cognitive Factors Limiting Selfcare Function Cognitive Ability Level of Alertness Alert Patient Orientation Name,Age,Birthday,Month,Date, Year,Day of Week,Place, Situation Cognitive Comments Cognitive Assessment Comments recommend cog assessment now that pt appears to be mostly clear. M7 OT- IP Mobility and Balance Start: 12/03/23 17:02 Freq: Status: Active Protocol: Document 12/06/23 15:23 CGR (Rec: 12/06/23 15:31 CGR [id number]) OT-Transfer Assessment Sit to and From Stand Sit to and from Stand Contact Guard Assistance, Minimal Assistance Transfers Transfer Ability Contact Guard Assistance, Minimal Assistance Technique Transfer Destination Bedside Commode,Chair,Shower Stall Transfer Technique Stand Step Pivot Devices Transfer Assistive Devices Gait Belt,Front Wheeled Walker Comments Mobility Comments Pt ambulated from the chair to the shower where she sat on the [place] for showering. OT- Balance Assessment Sitting Balance and Reactions Static Sitting Balance Ability Good Dynamic Sitting Balance Ability Good M8 OT- IP Objective Assessments Start: 12/03/23 17:02 Freq: Status: Active Protocol: Document 12/03/23 17:02 CGR (Rec: 12/03/23 17:14 CGR [id number]) OT Gross Range of Motion Upper Extremity Range of Motion Assessment Within Functional Limits OT Strength Upper Extremity Strength Assessment Within Functional Limits Comments Strength Comments grossly 4/5 but shaky with all movement. OT- Coordination Assessment Upper Extremity Finger to Nose Test Bilateral UE Impaired Finger Tapping Test Bilateral UE Impaired Comments Coordination Comments pt unable to perform either at WFL OT-Muscle Tone Assessment Muscle Tone WNL Yes OT Sensation Assessment Edema Edema Absent M9 OT- IP Assessment and Plan Start: 12/03/23 17:02 Freq: Status: Active Protocol: Document 12/06/23 15:23 CGR (Rec: 12/06/23 15:31 CGR [id number]) OT Summary Assessment and Plan Potential Rehabilitation Potential Good Analytic Complexity at Evaluation High Summary OT Impairments Strength,Balance,Coordination, Functional Cognition, Functional Mobility,Grooming, Dressing,Toileting,Bathing, Toilet Transfers,Shower Transfers,Activity Tolerance Progress Towards Goals Progressing Toward Goals Assessment Summary Pt presents as a high complexity evaluation s/p admit for ETOH withdrawl. Pt is progressing quickly with mobility and today ambulated into the bathroom for showering. Pt needed vc to initiate cleaning and assist with washing her hair. Pt would be appropriate for a cog assessment tomorrow. Of note, pt has large pieces of skin on her feet that are holding water (after shower). Concern for infection. Notified nursing, who stated that she would share with MD. Goals Self-Feeding Goal Independent Grooming Goal Independent Dressing Goal Independent Toileting Goal Independent Bathing Goal Independent Toilet Transfer Goal Independent Shower Transfer Goal Independent Days to Meet Goals 10 Frequency of Treatment Frequency Of Treatment Once a Day Treatment Plan OT Treatment Plan ADL Training,Functional Mobility,Vision Retraining, Patient/Family Education, Discharge Planning Other Treatment Recommendations and Next cog assesemnt Treatment Focus Discharge Recommendations OT Discharge Recommendations Home vs SNF Transportation Needs at Discharge Private Vehicle,Wheelchair/ Cabulance
--- NOTE | 2023-12-06 13:17 | CM.DPC ---
DCP Cont. Reviewed EMR and team rounds for status updates. Plan is to continue to wean down the librium over the next days, then assess medical stability at that time. Called pt's grandmother, Gill, and updated her on the plan. She will f/u with calling [facility] to discuss the Intensive Outpatient Program and plan for starting following immediately after pt's d/c from the hospital. Will plan to speak with her again tomorrow re: progress on this.
--- NOTE | 2023-12-06 13:29 | PT.IPTN ---
Current Diagnoses Alcohol use, unspecified with withdrawal with perceptual disturbance (11/28/23) Alcohol use, unspecified with withdrawal, unspecified (11/28/23) Physical Therapy Treatment Note M2 PT-IP Current Condition Start: 12/03/23 07:43 Freq: NEEDED Status: Active Protocol: Document 12/03/23 10:40 MB (Rec: 12/03/23 11:25 MB [id number]) Physical Therapy Current Condition Current Condition Evaluation Date 12/03/23 Treatment Diagnosis ETOH withdrawals with history of seizures with withdrawals M3 PT-IP Subjective Start: 12/03/23 07:43 Freq: NEEDED Status: Active Protocol: Document 12/06/23 14:37 TS (Rec: 12/06/23 14:53 TS [id number]) Subjective Physical Therapy Visit Type Type Treatment Note Visit Start Time 13:29 Visit Stop Time 13:59 Number of COMMUNITY MENTAL HEALTH WORKER Visits 3 Physical Therapy Visit Comments Patient Comments Pt found resting in chair, would like to try and walk with no AD, pt is agreeable to PT. M4 PT-IP Mobility and Gait Start: 12/03/23 07:43 Freq: NEEDED Status: Active Protocol: Document 12/06/23 14:37 TS (Rec: 12/06/23 14:53 TS [id number]) PT-Transfer Assessment Sit to and From Stand Sit to and from Stand Contact Guard Assistance Equipment Transfer Assistive Device Gait Belt,Front Wheeled Walker Orthotic/Prosthetic Devices or Brace: No Comments Mobility Comments STS with no AD CGA, pt is unsteady with some retroleaning. She ambulated in room ~20'Mak with no AD, she reaches for rails and kauffman for support and has a WBOS, recommended continue use of FWW at this time. She ambulated ~300'SBA with FWW, had x1 LOB requiring Mak for balance. She performed steps x 9 with B handrails SBA/CGA with slow movements. Pt ambulated back to room, requested to continue walking, nursing assisted pt with gait . Gait Assessment Gait Gait Assistance Required: Standby Assistance,Contact Guard Assist,Minimum Assistance Distance (Feet) 300 Able to Maintain Weight Bearing Status Yes During Gait Assistive Devices Assistive Device None,Gait Belt,Front Wheeled Walker Orthotic/Prosthetic Devices or Brace: No Gait Deviations General Gait Pattern Ataxic,Decreased Stride Length ,Decreased Feet Clearance,Step -to Gait,Wide Based Gait Factors Limiting Gait Function Factors Limiting Gait Function Abnormal Tonal Influences, Decreased Activity Tolerance, Decreased Strength,Difficulty Following Directions, Incoordination,Poor Balance, Poor Safety Awareness Comments Gait Comments See mobility comments Stair Climbing Assessment Evaluation Level of Assist On Stairs Minimal Assistance,1 Person Assistance Devices Stair Climbing Assistive Devices Left Railing,Right Railing Technique/Endurance Stair Climbing Direction Ascend and Descend Stair Climbing Technique Step to Step Number of Steps Climbed 9 Comments Stair Climbing Comments See mobility comments PT-Balance Assessment Sitting Balance and Reactions Static Sitting Balance Ability Good Dynamic Sitting Balance Ability Fair Standing Balance and Reactions Static Standing Balance Ability Fair Dynamic Standing Balance Ability Fair Device Used FWW M5 PT-IP Objective Assessments Start: 12/03/23 07:43 Freq: NEEDED Status: Active Protocol: Document 12/03/23 10:40 MB (Rec: 12/03/23 11:25 MB [id number]) Orientation Orientation/Cognition Level of Alertness Alert Orientation Name,Age,Birthday,Month,Date, Year,Day of Week,Place, Situation Language Function Ability No Deficits Noted Safety Awareness Decreased Safety Awareness Memory Description No Deficits Noted Comments Poor historian Gross Range of Motion Upper Extremity ROM Impairments Defer to OT Lower Extremity ROM Assessment Within Functional Limits Strength Comments Strength Comments Pt cannot follow commands for MMT Coordination Assessment Assessment Finger to Nose Test Severe Impairment Heel on Figueroa Test Severe Impairment M6 PT-IP Treatment Start: 12/03/23 07:43 Freq: NEEDED Status: Active Protocol: Document 12/06/23 14:37 TS (Rec: 12/06/23 14:53 TS [id number]) Physical Therapy Treatment Education Education Provided Safety M7 PT-IP Assessment and Plan Start: 12/03/23 07:43 Freq: NEEDED Status: Active Protocol: Document 12/06/23 14:37 TS (Rec: 12/06/23 14:53 TS [id number]) PT Summary Assessment and Plan Potential Rehabilitation Potential Fair Summary Impairments Strength,Balance,Coordination, Bed Mobility,Transfers,Gait, Activity Tolerance Progress Towards Goals Progressing Toward Goals Assessment Summary Patty continues to make some progress with her mobilitybut continues to have slow movements with all mobility. She is CGA for STS with no AD but is unsteady. She ambulated in the room ~20'Mak with no AD, she reaches for bed rails and kauffman to maintain balance. She ambulated ~300'SBA/CGA with FWW, had x1 LOB requiring Mak. She performed steps x9 with B handrails with continues slow movements. PT is recommending Home 24/7 vs SNF at this time. She would benefit from continued daily PT to progress functional mobility and strength before d /c home. Goals Bed Mobility Goal Independent Transfer Goal Independent,Cane,Front Wheeled Walker Gait Goal Independent,Cane,Front Wheel Walker Gait Distance 100 Other Goals Pt will ascend and descend at least 3 steps with rail to allow safe home entry. Days to Meet Goals 10 Frequency of Treatment Frequency Of Treatment Once a Day Treatment Plan Physical Therapy Treatment Plan Bed Mobility Training,Transfer Training,Gait Training, Therapeutic Exercise,Balance Retraining,Hot or Cold Pack, Neuromuscular Re-ed, Coordination Retraining,Manual Therapy Precautions Other Precautions fall risk, detox Weight Bearing Status Weight Bearing Status Weight Bear as Tolerated Recommendations To Nursing Amount of Assist Needed 1 Person Assist Discharge Recommendations PT Discharge Recommendations Home with 24/7 Assist Available,Home Health,SNF Rehab,Home vs SNF Transportation Needs at Discharge Private Vehicle,Wheelchair/ Cabulance
--- NOTE | 2023-12-06 13:52 | PM.PN.1 ---
Subjective Subjective Interval history: She says she feels fine. Her vision is normal. She denies any headache or numbness or weakness of arms or legs. She did better working with therapy, she feels a bit anxious today and tremulous, librium taper will reduce further to 25 mg TID. Exam Vital Signs (past 8 hours): - 12/06/23 07:00 12/06/23 07:25 12/06/23 07:25 Temperature Pulse Rate 80 Respiratory Rate Blood Pressure 87/57 L Pulse Oximetry 94 Oxygen Delivery Method Room Air Oxygen Flow Rate 12/06/23 07:26 12/06/23 07:26 12/06/23 12:11 Temperature 98.6 F 98.5 F Pulse Rate 75 Respiratory Rate 20 Blood Pressure 93/59 L 93/59 L 96/54 L Pulse Oximetry 96 99 Oxygen Delivery Method Oxygen Flow Rate 0 Oxygen Delivery Method Room Air Oxygen Flow Rate 0 Narrative Exam Narrative: NAD, alert and oriented. Lungs are clear, normal rate and effort. Heart is regular, no murmur gallop or rub. Abdomen is soft, non distended. Extremities are free of edema. Speech is coherent and a little bit broken up in chaz. Mild peripheral tremulousness. She does have vertical nystagmus, but no diplopia. Objective Labs 12/04/23 05:55 12/04/23 05:55 [facility] Medical History Alcohol use disorder Social History household members: family Smoking Status: Current every day smoker alcohol intake: current Assessment & Plan Assessment & Plan narrative: 1. Severe withdrawal syndrome, present on admission and active but improving. -CIWA, Precedex weaned at 1:00 p.m. yesterday. Continue to wean librium, cut from 50 TID to 25 mg TID today. -added ativan prn for anxiety, in addition to CIWA protocol. -continue supportive measures. Continue MVI, folate, thiamine. -vitamin repletion continues. -resume some home medications -vertical nystagmus present, likely due to withdrawals. Discussed with neuro (Rich) 12/02. 2. Chronic alcohol dependence (severe alcohol use disorder), present on admission and active. - EtOH level 390 - Lipase 342 with benign abdominal exam, no evidence of acute process, repeat normal 3. Hypokalemia, improved. - follow. 4. Hyponatremia, improved. - improved with normal saline. now off. 5. Severe Chronic Protein Calorie Malnutrition r/t excessive alcohol intake as evidenced by <75% energy intake intake for > 1 month and majority of calories from alcohol (severe), substance withdrawal with high CIWA scores (15, 11), BMI of 18.2 (underweight). 6. Nicotine dependence (Daily vape use), active. -nicotine patch 7. Possible seizure disorder - continue home keppra 500 mg BID Sepsis ruled out -febrile to 101.7F, WBC 2.4, unknown source -CXR and UA normal -blood cultures negative -zosyn now stopped DISPO: Anticipate discharge home in 2-3 days, has intensive outpatient alcohol treatment set up with case management.
--- NOTE | 2023-12-06 16:38 | DIET.CONS ---
Dietary Consultation Note Admission Date: 11/28/2023 18:35 Assessment: 33 y F admitted for alcohol withdrawal. Nutrition f/u Met with pt at bedside to discuss adequate energy intake and discuss previously reported eating disorder like thoughts and behaviors. She reports feelings of guilt after eating, worries of weight, calorie restricting, participating in diets that don't meet nutrient needs, body checks, and avoidance of certain foods/food groups. Safe foods include lean proteins, keto like bars, low sugar fruits, vegetables. During hospitalization she has had adequate PO intakes. Concern present that pt will leave hospital and fast/not eat. Pt working to redirect thoughts to adequate intake = improved strength. Her support is her grandparents. She reports she does better eating with others. Ht: 170.18 cm Wt: 56.8 kg BMI: 21.2 UBW: - Last BM: 12/03/23 (12/03/23 17:34) MNA: Saran Score: 20 Diet: 11/30/23 Lunch General (Regular) Diet Diet Modifications: Food Texture: Level 7 - Regular Liquid Consistency: Level 0 - Thin Nutrition Percent Meal Consumed 100% 12/06/23 09:05 Percent Meal Consumed 100% 12/05/23 18:00 Percent Meal Consumed 75% 12/05/23 13:24 Percent Meal Consumed 75% 12/05/23 09:29 Percent Meal Consumed 100% 12/04/23 18:00 Labs: RBC 2.94 X10^6/uL (4.0-5.2) L 12/04/23 05:55 Hgb 9.6 g/dL (12.0-16.0) L 12/04/23 05:55 Hct 28.2 % (36-46) L 12/04/23 05:55 Creatinine 0.48 mg/dL (0.52-1.04) L 12/04/23 05:55 Lactate 1.5 mmol/L (0.7-2.1) 11/29/23 04:35 Nutrition Diagnosis: (continued) Severe Chronic Protein Calorie Malnutrition r/t excessive alcohol intake as evidenced by <75% energy intake intake for > 1 month and majority of calories from alcohol (severe), substance withdrawal with high CIWA scores (15, 11), BMI of 18.2 (underweight). Interventions: 1. MNT for disordered eating like thoughts and behaviors provided w/ goal setting 2. Discussed adequate protein and energy intake -Planned for 4 meals/day w/ protein choice at each meal, support from grandparents as able EER: [id number] kcals/day (30-35 kcals/kg) 80-90 g protein/day (1.5-1.7 g/kg) Monitoring/Evaluations: PO intakes, f/u in 1-3 days Electronically Signed by: Mercedes Daniels 12/06/23 16:38 Clinical Dietitian [address] [id number]
[2023-12-06] MEDS: LORazepam 1 MG TABLET PO (17:07)
--- NOTE | 2023-12-06 18:18 | PC.NURSE ---
pt has been up in the chair all shift; she ambulated in the halls with PT and with MANAGER BEHAVIOR; her CIWA has been 1 all shift; she was given ativan 1mg po this afternoon for mild anxiety, to good effect; she continues to exhibit vertical nystagmus, but it is markedly improved
[2023-12-06] MEDS: TRAZODONE 50 MG TABLET PO (21:39)
[2023-12-06] MEDS: chlordiazePOXIDE 25 MG CAPSULE PO (21:39)
[2023-12-07] VITALS (15 sets, daily range): BP systolic 84–103; BP diastolic 53–61; PULSE 71–91; RESP 16–18; TEMP 36.6–36.8; O2SAT 93–99
[2023-12-07] MEDS: chlordiazePOXIDE 25 MG CAPSULE PO ×2 (05:55→20:06)
[2023-12-07] MEDS: BUSPIRONE 5 MG TABLET 7.5 MG PO ×2 (08:44→20:06)
[2023-12-07] MEDS: MULTIVITAMIN 1 TABLET 1 TAB PO (08:47)
[2023-12-07] MEDS: NICOTINE 21 MG PATCH TOP (08:48)
[2023-12-07] MEDS: SERTRALINE 50 MG TABLET 150 MG PO (08:48)
[2023-12-07] MEDS: FOLIC ACID 1 MG TABLET PO (08:48)
[2023-12-07] MEDS: PRENATAL VIT,CALC/IRON/FOLIC 1 TABLET 1 TAB PO (08:48)
[2023-12-07] MEDS: GABAPENTIN 300 MG CAPSULE PO ×3 (08:48→20:06)
[2023-12-07] MEDS: SODIUM CHLORIDE 0.9% FLUSH 10 ML IV ×2 (08:48→20:07)
[2023-12-07] MEDS: levETIRAcetam 250 MG TABLET 500 MG PO ×2 (08:48→20:06)
[2023-12-07] MEDS: THIAMINE 100 MG TABLET PO (08:48)
--- NOTE | 2023-12-07 10:05 | PT.IPTN ---
Current Diagnoses Alcohol use, unspecified with withdrawal with perceptual disturbance (11/28/23) Alcohol use, unspecified with withdrawal, unspecified (11/28/23) Physical Therapy Treatment Note M2 PT-IP Current Condition Start: 12/03/23 07:43 Freq: NEEDED Status: Active Protocol: Document 12/03/23 10:40 MB (Rec: 12/03/23 11:25 MB [id number]) Physical Therapy Current Condition Current Condition Evaluation Date 12/03/23 Treatment Diagnosis ETOH withdrawals with history of seizures with withdrawals M3 PT-IP Subjective Start: 12/03/23 07:43 Freq: NEEDED Status: Active Protocol: Document 12/07/23 10:49 TS (Rec: 12/07/23 11:02 TS [id number]) Subjective Physical Therapy Visit Type Type Treatment Note Visit Start Time 10:05 Visit Stop Time 10:45 Number of CORN HUSK BALER Visits 4 Physical Therapy Visit Comments Patient Comments Pt found resting in chair, would like to go on a walk. Pt is agreeable to PT. M4 PT-IP Mobility and Gait Start: 12/03/23 07:43 Freq: NEEDED Status: Active Protocol: Document 12/07/23 10:49 TS (Rec: 12/07/23 11:02 TS [id number]) PT-Transfer Assessment Sit to and From Stand Sit to and from Stand Standby Assistance Equipment Transfer Assistive Device Gait Belt,Front Wheeled Walker Orthotic/Prosthetic Devices or Brace: No Comments Mobility Comments STS from chair SBA with no AD, pt has some unsteadiness coming into standing with slow movements. She ambulated with FWW ~200 SBA with cues for heel to toe gait, pt has difficulty with coordination of heel to toe and requires max cues. She ambulated ~100' CGA/Mak for multiple LOB's, heel to to e is more difficult than without FWW. She performed steps x9 step over step with slow movements SBA and B handrails. Pt was left back in room with all needs met. Gait Assessment Gait Gait Assistance Required: Standby Assistance,Contact Guard Assist,Minimum Assistance Distance (Feet) 300 Able to Maintain Weight Bearing Status Yes During Gait Assistive Devices Assistive Device None,Gait Belt,Front Wheeled Walker Orthotic/Prosthetic Devices or Brace: No Gait Deviations General Gait Pattern Ataxic,Decreased Stride Length ,Decreased Feet Clearance,Step -to Gait,Wide Based Gait Factors Limiting Gait Function Factors Limiting Gait Function Abnormal Tonal Influences, Decreased Activity Tolerance, Decreased Strength,Difficulty Following Directions, Incoordination,Poor Balance, Poor Safety Awareness Comments Gait Comments See mobility comments Stair Climbing Assessment Evaluation Level of Assist On Stairs Standby Assistance Devices Stair Climbing Assistive Devices Left Railing,Right Railing Technique/Endurance Stair Climbing Direction Ascend and Descend Stair Climbing Technique Step to Step Number of Steps Climbed 9 Comments Stair Climbing Comments See mobility comments PT-Balance Assessment Sitting Balance and Reactions Static Sitting Balance Ability Good Dynamic Sitting Balance Ability Fair Standing Balance and Reactions Static Standing Balance Ability Fair Dynamic Standing Balance Ability Fair Device Used FWW M5 PT-IP Objective Assessments Start: 12/03/23 07:43 Freq: NEEDED Status: Active Protocol: Document 12/03/23 10:40 MB (Rec: 12/03/23 11:25 MB [id number]) Orientation Orientation/Cognition Level of Alertness Alert Orientation Name,Age,Birthday,Month,Date, Year,Day of Week,Place, Situation Language Function Ability No Deficits Noted Safety Awareness Decreased Safety Awareness Memory Description No Deficits Noted Comments Poor historian Gross Range of Motion Upper Extremity ROM Impairments Defer to OT Lower Extremity ROM Assessment Within Functional Limits Strength Comments Strength Comments Pt cannot follow commands for MMT Coordination Assessment Assessment Finger to Nose Test Severe Impairment Heel on Figueroa Test Severe Impairment M6 PT-IP Treatment Start: 12/03/23 07:43 Freq: NEEDED Status: Active Protocol: Document 12/07/23 10:49 TS (Rec: 12/07/23 11:02 [id number]) Physical Therapy Treatment Education Education Provided Safety M7 PT-IP Assessment and Plan Start: 12/03/23 07:43 Freq: NEEDED Status: Active Protocol: Document 12/07/23 10:49 TS (Rec: 12/07/23 11:02 TS [id number]) PT Summary Assessment and Plan Potential Rehabilitation Potential Fair Summary Impairments Strength,Balance,Coordination, Bed Mobility,Transfers,Gait, Activity Tolerance Progress Towards Goals Progressing Toward Goals Assessment Summary Patty continues to make progress with her mobility. She is SBA for gait with FWW and CGA/Mak for gait with no AD due to balance and weakness . She was instructed in heel to toe gait with FWW and w/out . She has more difficulty with gait with out FWW and has some LOB's and PT would recommend a FWW for home use. She states her grandfather may have one, handout was provided for DME. PT is recommending home with 24/7 assist and HHPT if she cannot make it to outpatient PT appointments. Goals Bed Mobility Goal Independent Transfer Goal Independent,Cane,Front Wheeled Walker Gait Goal Independent,Cane,Front Wheel Walker Gait Distance 100 Other Goals Pt will ascend and descend at least 3 steps with rail to allow safe home entry. Days to Meet Goals 10 Frequency of Treatment Frequency Of Treatment Once a Day Treatment Plan Physical Therapy Treatment Plan Bed Mobility Training,Transfer Training,Gait Training, Therapeutic Exercise,Balance Retraining,Hot or Cold Pack, Neuromuscular Re-ed, Coordination Retraining,Manual Therapy Precautions Other Precautions fall risk, detox Weight Bearing Status Weight Bearing Status Weight Bear as Tolerated Recommendations To Nursing Amount of Assist Needed 1 Person Assist Discharge Recommendations PT Discharge Recommendations Home with 24/7 Assist Available,Home Health, Outpatient PT Other Discharge Recommendations Needs FWW/4WW Transportation Needs at Discharge Private Vehicle
[2023-12-07 10:21] LABS: Bacteria Urine Many (>30); Squamous Epithelial Cell Urine 5-10 /HPF (0-5/HPF); Urine Volume 10mL (spun); WBC Urine >100/HPF (0-5/HPF)
[2023-12-07 10:24] LABS: Culture Indicated Urine Specimen Cultured; RBC Urine 0-1/HPF (0-5/HPF)
[2023-12-07] MEDS: cefTRIAXone 1,000 MG in SODIUM CHLORIDE 0.9% 100 ML 200 MG IV (10:57)
--- NOTE | 2023-12-07 12:05 | OT.IP.TRT ---
Current Diagnoses Alcohol use, unspecified with withdrawal with perceptual disturbance (11/28/23) Alcohol use, unspecified with withdrawal, unspecified (11/28/23) Occupational Therapy Treatment Note M2 OT-IP Current Condition Start: 12/03/23 17:02 Freq: Status: Active Protocol: Document 12/03/23 17:02 CGR (Rec: 12/03/23 17:14 CGR [id number]) Occupational Therapy Current Condition Current Condition Evaluation Date 12/03/23 Treatment Diagnosis ETOH withdrawl Diagnosis Onset Date 11/28/23 M3 OT- IP Subjective and Pain Start: 12/03/23 17:02 Freq: Status: Active Protocol: Document 12/07/23 16:11 CGR (Rec: 12/07/23 16:25 CGR [id number]) OT- Subjective Occupational Therapy Visit Type Type Treatment Note Visit Start Time 11:31 Visit Stop Time 12:05 Notes Pt agreeable to cog assessment . Notified nursing of skin sheeting off feet yesterday in shower. Nursing agreeable to removing skin after being oked by Dr. Gross. Pt provided with warm water bathr for her feet to prep for nursing foot care. Pt performed cog assessment while feet soaking. OT Pain Assessment Pain When Pain Assessed At Rest Pain Present Pain Present Denied Pain M4 OT- IP ADL's Start: 12/03/23 17:02 Freq: Status: Active Protocol: Document 12/06/23 15:23 CGR (Rec: 12/06/23 15:31 CGR [id number]) OT [id number] General Evaluation Self-Feeding Ability Independent Areas Needing Assistance Drinking From Cup/Glass Comments OT Self-Feeding Comments drinking from soda OT ADL-Grooming General Evaluation Grooming Ability Standby Assistance,Moderate Assistance Areas Needing Assistance Combing/Brushing Hair,Face Washing Comments OT Grooming Comments pt washed face in shower with sBA but needed assist with hair in the shower. Pt left sitting up in her chair and brushing out her hair. OT ADL-Oral Care Comments Oral Care Comments not performed OT ADL-Dressing General Eval Upper Body Dressing Ability Minimal Assistance Lower Body Dressing Ability Standby Assistance Areas Needing Assistance Underpants/Brief Comments OT Dressing Comments hospital gown and breif. Pt needed extra time to don breifs. OT ADL-Toileting Comments OT Toileting Comments not performed OT ADL-Bathing Bathing Type Bathing Type Shower General Evaluation Bathing Ability Moderate Assistance Areas Needing Assistance Retrieving/Setting Up Items, Wash/Dry Lower Extremities Devices Bathing Equipment Hand Held Shower Sprayer, Shower Chair with Arms Comments OT Bathing Comments Pt needed help with washing her hair and needed vc for performing all other cleaning of body parts. M5 OT- IP IADL's Start: 12/03/23 17:02 Freq: Status: Active Protocol: Document 12/03/23 17:02 CGR (Rec: 12/03/23 17:14 CGR [id number]) OT-Instrumental Activities of Daily Living Deficits IADL Deficits Identified Deficits Home Safety Awareness Awareness of Need for Assistance at Home Decreased Awareness Ability to Problem Solve Emergency Unable to Problem Solve Situations Medication Management Medication Management Comments concerns regarding pt's abiltiy to perform safely Money Management Money Management Comments concerns regarding pt's abiltiy to perform safely Meal Preparation Meal Preparation Comments concerns regarding pt's abiltiy to perform safely Professor Of Geography Professor Of Geography Comments concerns regarding pt's abiltiy to perform safely Driving Driving Comments concerns regarding pt's abiltiy to perform safely M6 OT- IP Functional Cognition Start: 12/03/23 17:02 Freq: Status: Active Protocol: Document 12/07/23 16:11 CGR (Rec: 12/07/23 16:25 CGR [id number]) Cognitive Factors Limiting Selfcare Function Cognitive Tests SLUMS Pt participated in SLUMS assessment on this date scoring 20/30. Pt was able to do simple addition but not subtration, she was able to name 11 animals in one minute, remembered 3 of 5 objects, stated numbers backwards for the 4 number sequence but not for the 3 number sequence, and earned no points on the clock . SLUMS assessment will be scanned into pt's medical file for future reference. Cognitive Comments Cognitive Assessment Comments Pt was upset regarding her score of 20/30. Discussed with pt at length and attempted to encourage pt to have a positive outlook. M7 OT- IP Mobility and Balance Start: 12/03/23 17:02 Freq: Status: Active Protocol: Document 12/06/23 15:23 CGR (Rec: 12/06/23 15:31 CGR [id number]) OT-Transfer Assessment Sit to and From Stand Sit to and from Stand Contact Guard Assistance, Minimal Assistance Transfers Transfer Ability Contact Guard Assistance, Minimal Assistance Technique Transfer Destination Bedside Commode,Chair,Shower Stall Transfer Technique Stand Step Pivot Devices Transfer Assistive Devices Gait Belt,Front Wheeled Walker Comments Mobility Comments Pt ambulated from the chair to the shower where she sat on the [facility] for showering. OT- Balance Assessment Sitting Balance and Reactions Static Sitting Balance Ability Good Dynamic Sitting Balance Ability Good M8 OT- IP Objective Assessments Start: 12/03/23 17:02 Freq: Status: Active Protocol: Document 12/03/23 17:02 CGR (Rec: 12/03/23 17:14 CGR [id number]) OT Gross Range of Motion Upper Extremity Range of Motion Assessment Within Functional Limits OT Strength Upper Extremity Strength Assessment Within Functional Limits Comments Strength Comments grossly 4/5 but shaky with all movement. OT- Coordination Assessment Upper Extremity Finger to Nose Test Bilateral UE Impaired Finger Tapping Test Bilateral UE Impaired Comments Coordination Comments pt unable to perform either at WFL OT-Muscle Tone Assessment Muscle Tone WNL Yes OT Sensation Assessment Edema Edema Absent M9 OT- IP Assessment and Plan Start: 12/03/23 17:02 Freq: Status: Active Protocol: Document 12/07/23 16:11 CGR (Rec: 12/07/23 16:25 CGR [id number]) OT Summary Assessment and Plan Potential Rehabilitation Potential Good Analytic Complexity at Evaluation High Summary OT Impairments Strength,Balance,Coordination, Functional Cognition, Functional Mobility,Grooming, Dressing,Toileting,Bathing, Toilet Transfers,Shower Transfers,Activity Tolerance Progress Towards Goals Progressing Toward Goals Assessment Summary Pt presents as a high complexity evaluation s/p admit for ETOH withdrawl. Pt particpated in cog assessment on this date with a 20/30 score on the SLUMS. Pt will continue to benefit from OT services. Goals Self-Feeding Goal Independent Grooming Goal Independent Dressing Goal Independent Toileting Goal Independent Bathing Goal Independent Toilet Transfer Goal Independent Shower Transfer Goal Independent Days to Meet Goals 10 Frequency of Treatment Frequency Of Treatment Once a Day Treatment Plan OT Treatment Plan ADL Training,Functional Mobility,Vision Retraining, Patient/Family Education, Discharge Planning Other Treatment Recommendations and Next Treatment Focus Discharge Recommendations OT Discharge Recommendations Home vs SNF Transportation Needs at Discharge Private Vehicle,Wheelchair/ Cabulance
[2023-12-07] MEDS: hydrOXYzine HCL 25 MG TABLET PO (12:07)
[2023-12-07] MEDS: CLOTRIMAZOLE 1% VAG CRM 45 GM 1 APPLIC TOP ×2 (12:08→20:08)
--- NOTE | 2023-12-07 12:29 | PC.NURSE ---
Day shift: Pt A&Ox4, VSS. Up with PT. Tolerating a general diet. OT notified this RN of pt's feet peeling. Provider notified. New orders received. Pt soaked feet, thick skin peeled from feet bilaterally. Cream applied (See MAR). Pt up in chair for meals. Voiding adequately SBA to BR w/ FWW. Care ongoing. Will continue to monitor.
[2023-12-07] MEDS: LORazepam 1 MG TABLET PO ×2 (14:55→20:19)
--- NOTE | 2023-12-07 15:04 | CM.DPC ---
DCP Cont. Reviewed EMR and team rounds for status updates. Pt's grandmother, Gill, was supposed to be here to discuss d/c needs/plan today at 1:00pm, however at this time of 3:00pm they still have not arrived. This COACH WIRER attempted to get Home Health PT/OT for pt at d/c. however she was declined by both available agencies due to her ETOH issues. COACH WIRER called [facility] and clarified who pt's PCP is now: Zainab Herr. COACH WIRER provided this for her and also encouraged pt to get a new PCP in [place] that was more accessible to her for ongoing care needs. Pt will likely d/c on Sunday with oral Librium to complete her course. Her grandparents will transport her, she will continue to live with them as she moves through intensive outpatient tx on her online program. Cont. to monitor for any further d/c needs.
--- NOTE | 2023-12-07 15:54 | PM.PN.1 ---
Subjective Subjective Interval history: She says she feels fine. Her vision is normal. She denies any headache or numbness or weakness of arms or legs. She is doing much better with therapy, still a bit unsteady. Complained of urinary frequency and burning, UA positive. Started on ceftriaxone. Exam Vital Signs (past 8 hours): - 12/07/23 12:03 12/07/23 12:03 Pulse Rate 76 Blood Pressure 91/61 91/61 Pulse Oximetry 99 Oxygen Delivery Method Room Air Oxygen Flow Rate 0 Narrative Exam Narrative: NAD, alert and oriented. Lungs are clear, normal rate and effort. Heart is regular, no murmur gallop or rub. Abdomen is soft, non distended. Extremities are free of edema. Speech is coherent and a little bit broken up in chaz. Mild peripheral tremulousness. She does have vertical nystagmus, but no diplopia. Objective Labs 12/04/23 05:55 12/04/23 05:55 Labs: Laboratory Results - last 24 hr 12/07/23 09:55 Urine RBC 0-1/hpf Urine WBC >100/hpf H Ur Squamous Epith Cells 5-10 /hpf H Urine Bacteria Many (>30) H Ur Culture Indicated? Specimen cultured Micro UA Comment Vol Urine Centrifuged 10ml (spun) [facility] Medical History Alcohol use disorder Social History household members: family Smoking Status: Current every day smoker alcohol intake: current Assessment & Plan Assessment & Plan narrative: 1. Severe withdrawal syndrome, present on admission and active but improving. -CIWA, Precedex weaned at 1:00 p.m. yesterday. Continue to wean librium, cut to 25 mg BID today. Can likely stop therapy tomorrow on discharge. -added ativan prn for anxiety, in addition to CIWA protocol. -continue supportive measures. Continue MVI, folate, thiamine. -vitamin repletion continues. -resume some home medications -vertical nystagmus present, likely due to withdrawals. Discussed with neuro (Rich) 12/02 and patient is improving, is consistent with withdrawal. -patient asked about Vivitrol (natlrexone injection). This was sent to the local pharmacy for administration after discharge and completion of withdrawal treatment. Further prescription and monitoring to be done with PCP. 2. Chronic alcohol dependence (severe alcohol use disorder), present on admission and active. - EtOH level 390 - Lipase 342 with benign abdominal exam, no evidence of acute process, repeat normal 3. Hypokalemia, improved. - follow. 4. Hyponatremia, improved. - improved with normal saline. now off. 5. Severe Chronic Protein Calorie Malnutrition r/t excessive alcohol intake as evidenced by <75% energy intake intake for > 1 month and majority of calories from alcohol (severe), substance withdrawal with high CIWA scores (15, 11), BMI of 18.2 (underweight). 6. Nicotine dependence (Daily vape use), active. -nicotine patch 7. Possible seizure disorder - continue home keppra 500 mg BID 8. Acute cystitis, not present on admission - UA positive, follow up cultures. No signs of sepsis now. - ceftriaxone ordered for 3 days, can transition to PO antibiotics on discharge. DISPO: Anticipate discharge home tomorrow once librium taper complete with step-grandmother. Will discharge home with home health, continued PT/OT at home.
[2023-12-07] MEDS: TRAZODONE 50 MG TABLET PO (21:52)
--- NOTE | 2023-12-07 23:11 | PC.NURSE ---
Patient is alert and oriented but slow in responses. Has bilateral UE tremors with CIWA score of 8 which decreased to 6 after being medicated with Ativan. States she has some double vision (sees 1.5X) and some noted nystagmus; seems to focus better with right eye. Breath sounds CTA with RA sat of 99%. HRR but soft BP of 93/53 but has been trending low and is asymptomatic. HRR. Denied nausea. BT present and had small BM on previous shift. States she has dysuria and urgency with urination; started on Ceftriaxone on day shift after UA showing likely UTI. Is able to turn herself in bed. Up to bathroom with SBA. Ambulated in miller around ICU nurses station x2 using walker and 1 assist; attempted to do SBA + gait belt but was unsteady on feet. When walking seems to have some difficulty with navigating around objects. Allevyn dressing to coccyx is CDI. Peeling skin on bilateral feet/ankles noted and Chlotrimazole cream applied; some peeling skin also noted on palms of hands. 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 Seizure pads in place. Endorses 2/10 pain in left ribs but declined medication. Fall risk score is moderate and bed alarm is activated. Plan of care reviewed with patient. Verbalizes understanding of ETOH and desire to remain sober.
[2023-12-08] VITALS: BP 103/60; PULSE 78; RESP 19; TEMP 36.7; O2SAT 96
[2023-12-08 04:00] VITALS: BP 91/55; PULSE 70; RESP 16; TEMP 36.4; O2SAT 97
[2023-12-08 04:40] VITALS: PULSE 75; O2SAT 94
[2023-12-08 04:41] VITALS: BP 91/55; PULSE 71; O2SAT 97
--- NOTE | 2023-12-08 07:44 | PM.DS.1 ---
History of Present Illness History of Present Illness Date Patient Seen: 12/08/23 Chief complaint: ETOH Withdrawl Narrative: Declines to talk to me. Awakens to voice, post Ativan for CIWA 17 now tired and wants to sleep. Per ER provider She states the last time she went to alcohol rehab was she believes in January of last year. She states that she typically drinks half a gal of whiskey daily. It sounds like she is staying with her uncle as her primary care is in [place]. They have been trying to wean her off the alcohol and she presents with confusion/delirium, significant tremor and increasing concerns for severe DTs. She is significantly confused, brought in by medics. Previous records from [facility] note chronic alcohol use disorder with history of alcohol withdrawal seizure disorder, mulitple admission for alchohol withdrawal. Previously trailed on antiepilectic medications for possible epileptic syndrome not asosciated with alcohol withdrawal without adherence or improvement. ED evaluated revealed elevated EtOH level with withdrawal symptoms. 1L NS bolus, phenobarbital 260mg x1, Zofran IV x1 Discharge Providers Provider Date of admission: 11/28/23 18:35 Discharge Date: 12/08/23 Consults: 11/28/23 19:13 Consult to Tele-water pipe installer Routine Comment: Consulting Provider: Trace Tele-intensivists Reason for consultation: Child Adolescent Psychiatrist services 11/29/23 11:06 Consult to SUBSTATION SUPERINTENDENT - School Examiner Routine Comment: 12/03/23 07:43 Consult to Occupational Therapy Evaluate & Treat Comment: Physician Instructions: Evaluate and treat Consult to Physical Therapy Evaluate & Treat Comment: Physician Instructions: Evaluate and Treat 12/07/23 12:18 Consult to Home Health Routine Comment: PT, OT Reason For Exam: Home Health Services Discharge provider: Britt Wesley MD Summary Hospital Course Hospital Course: 1. Severe withdrawal syndrome She came in with acute intoxication and was closely managed by the ICU physicians and the hospitalist group over a 10 day hospital stay. She was on Precedex, Ativan and Librium at various times. She was eventually discharged home with plans for continuation of Vivitrol. She was encouraged not to drink alcohol and to take magnesium, multivitamin and thiamine supplementation. She was discharged to the care of her grandparents and directed to follow up with her primary care physician as soon as possible. 2. Chronic alcohol dependence (severe alcohol use disorder), present on admission and active. - EtOH level 390 - Lipase 342 with benign abdominal exam, no evidence of acute process, repeat normal 3. Hypokalemia, improved. - follow. 4. Hyponatremia, improved. - improved with normal saline. now off. 5. Severe Chronic Protein Calorie Malnutrition r/t excessive alcohol intake as evidenced by <75% energy intake intake for > 1 month and majority of calories from alcohol (severe), substance withdrawal with high CIWA scores (15, 11), BMI of 18.2 (underweight). 6. Nicotine dependence (Daily vape use), active. -nicotine patch 7. Possible seizure disorder - continue home keppra 500 mg BID 8. Acute cystitis, not present on admission -urine culture with Gram-negative bacilli. No signs of sepsis now. -completed treatment with ceftriaxone, transitioned to cephalexin at home. Status at Discharge Cognitive/behavioral status at discharge: oriented Functional status at discharge: independent ambulation Overall status at discharge: patient is progressing back to baseline Exam Vital Signs (past 8 hours): - 12/08/23 00:00 12/08/23 04:00 Temperature 98.1 F 97.5 F L Pulse Rate 78 70 Respiratory Rate 19 16 Blood Pressure 103/60 91/55 L Pulse Oximetry 96 97 Oxygen Delivery Method Room Air Oxygen Flow Rate 0 Narrative Exam Narrative: Alert and oriented x3. Somewhat disorganized and significant gaps in memory. Heart is regular rate and rhythm without murmur Lungs are clear to auscultation bilaterally Fighting Vehicle Systems Maintainer strength is 3/5 bilateral. Lower extremity plantar flexion strength is 4/5 bilateral. Objective Labs 12/04/23 05:55 12/04/23 05:55 Labs: Laboratory Results - last 24 hr 12/07/23 09:55 Urine RBC 0-1/hpf Urine WBC >100/hpf H Ur Squamous Epith Cells 5-10 /hpf H Urine Bacteria Many (>30) H Ur Culture Indicated? Specimen cultured Micro UA Comment Vol Urine Centrifuged 10ml (spun) ON LICENSE OF [facility] Medical History Alcohol use disorder Social History household members: family Smoking Status: Current every day smoker alcohol intake: current Discharge Plan Discharge Plan Patient Disposition: Home Health Service Provider Discharge Comment: Follow up with your doctor in [place] this week. Discharge orders & Medications Prescriptions: New Vivitrol 380 mg suspension,extended rel recon 380 mg IM QMONTH 30 Days Qty: 1 0RF lorazepam 1 mg Tablet 1 mg PO Q6HR PRN (Reason: Anxiety) Qty: 30 0RF cephalexin 500 mg capsule 500 mg PO Q8H Qty: 10 0RF phenazopyridine [Pyridium] 100 mg tablet 100 mg PO TID PRN (Reason: pain) Qty: 10 0RF Continued gabapentin 400 mg capsule 400 mg PO 3XD naloxone 4 mg/actuation [place],Non-Aerosol 1 spray INTRANASAL Q2M PRN (Reason: Opioid Overdose) Rx Instructions: spray 1 dose into ONE nostril; alternate nostrils w each dose until help arrives norgestimate-ethinyl estradiol 0.25-35 mg-mcg tablet 1 tab PO DAILY Qty: 30 0RF clonidine HCl 0.1 mg tablet 0.1 mg PO 3XD PRN (Reason: Anxiety) Qty: 60 0RF trazodone 50 mg Tablet 50 mg PO PRN PRN (Reason: Sleep) Qty: 30 0RF levetiracetam 500 mg tablet 500 mg PO BID Qty: 60 0RF thiamine HCl (vitamin B1) [Vitamin B-1] 100 mg tablet 100 mg PO DAILY Qty: 30 0RF gabapentin 300 mg capsule 300 mg PO 3XD Qty: 90 0RF sertraline [Zoloft] 25 mg tablet 150 mg PO DAILY Qty: 30 0RF folic acid 1 mg tablet 1 mg PO DAILY Qty: 30 0RF hydroxyzine HCl 25 mg tablet 25 mg PO 3XD PRN (Reason: anxiety) Qty: 30 0RF fluticasone propionate 50 mcg/actuation [place],Suspension 1 spray INTRANASAL DAILY PRN (Reason: allergies) Qty: 1 0RF Rx Instructions: administer into each nostril buspirone 15 mg tablet 7.5 mg PO BID Qty: 90 0RF cholecalciferol (vitamin D3) [Vitamin D3] 25 mcg (1,000 unit) capsule 25 mcg PO 1XD Qty: 30 0RF Vitamin 27 mg iron- 800 mcg tablet 1 tab PO DAILY Qty: 100 0RF Visit Report/Discharge Packet Instructions: DI for Urinary Tract Infection (UTI), DI for Alcohol Use Disorder, How to Prevent Falls Stand Alone Forms: Patient Portal/API, Stroke Signs & Symptoms
[2023-12-08 09:06] VITALS: O2SAT 80
[2023-12-08 09:07] VITALS: BP 101/58; PULSE 73; TEMP 36.4; O2SAT 100
[2023-12-08] MEDS: NICOTINE 21 MG PATCH TOP (09:35)
[2023-12-08] MEDS: PRENATAL VIT,CALC/IRON/FOLIC 1 TABLET 1 TAB PO (09:36)
[2023-12-08] MEDS: BUSPIRONE 5 MG TABLET 7.5 MG PO (09:36)
[2023-12-08] MEDS: FOLIC ACID 1 MG TABLET PO (09:36)
[2023-12-08] MEDS: MULTIVITAMIN 1 TABLET 1 TAB PO (09:36)
[2023-12-08] MEDS: chlordiazePOXIDE 25 MG CAPSULE PO (09:36)
[2023-12-08] MEDS: levETIRAcetam 250 MG TABLET 500 MG PO (09:36)
[2023-12-08] MEDS: GABAPENTIN 300 MG CAPSULE PO (09:36)
[2023-12-08] MEDS: THIAMINE 100 MG TABLET PO (09:36)
[2023-12-08] MEDS: SERTRALINE 50 MG TABLET 150 MG PO (09:36)
[2023-12-08] MEDS: CLOTRIMAZOLE 1% VAG CRM 45 GM 1 APPLIC TOP (09:37)
[2023-12-08] MEDS: SODIUM CHLORIDE 0.9% FLUSH 10 ML IV (09:38)
[2023-12-08] MEDS: cefTRIAXone 1,000 MG in SODIUM CHLORIDE 0.9% 100 ML 200 MG IV (09:46)
--- NOTE | 2023-12-08 11:50 | CM.DPC ---
DCP Discharge Home with HH Per MD, pt is medically stable to d/c home today and in agreement that HH would be beneficial as pt remains below baseline. Per WATER ANALYST, continues to recommend home with assist and HH as pt still fairly unstable in her ambulation and still has some dizziness/nystagmus. Pt agreeable with HH as she feels she would not be able to get to outpt appointments and her PCP is in [facility] still. SW made [facility] referral based on the Vendor Calendar for HH agencies that accept her [employer] insurance and cover [facility]. F2F, HH orders, and d/c summ also sent to [facility] for HH RN/PT/[employer] FINANCIAL DEVELOPER and brochure provided to pt and SW explained HH services and frequency. Pt confirms she is agreeable with discharge to her grandparent's home in [place] and tu [facility] will be bedside around 1230 today to provide transport home. Plan: Patient to d/c home today via family POV and new [facility] referral made and pt has resources for public transport, outpt [facility] tx, Intensive Outpt [facility] with [facility]. DANIELLE Beaver
--- NOTE | 2023-12-08 11:55 | PT.IPTN ---
Current Diagnoses Alcohol use, unspecified with withdrawal with perceptual disturbance (11/28/23) Alcohol use, unspecified with withdrawal, unspecified (11/28/23) Physical Therapy Treatment Note M2 PT-IP Current Condition Start: 12/03/23 07:43 Freq: NEEDED Status: Active Protocol: Document 12/03/23 10:40 MB (Rec: 12/03/23 11:25 MB [id number]) Physical Therapy Current Condition Current Condition Evaluation Date 12/03/23 Treatment Diagnosis ETOH withdrawals with history of seizures with withdrawals M3 PT-IP Subjective Start: 12/03/23 07:43 Freq: NEEDED Status: Active Protocol: Document 12/08/23 12:40 TS (Rec: 12/08/23 12:50 TS [id number]) Subjective Physical Therapy Visit Type Type Treatment Note Visit Start Time 11:55 Visit Stop Time 12:30 Number of PIPEFITTER Visits 5 Physical Therapy Visit Comments Patient Comments Pt found resting in chair, is agreeable to PT. M4 PT-IP Mobility and Gait Start: 12/03/23 07:43 Freq: NEEDED Status: Active Protocol: Document 12/08/23 12:40 TS (Rec: 12/08/23 12:50 TS [id number]) PT-Transfer Assessment Sit to and From Stand Sit to and from Stand Standby Assistance Equipment Transfer Assistive Device Gait Belt,Front Wheeled Walker Orthotic/Prosthetic Devices or Brace: No Comments Mobility Comments STS from chair SBA with BUE support pushing form knees. She performed standing balance ex of NBOS eyes opened/closed and tandem stance. She does have increased swaying and requires support to maintain balance at times. She ambulated no AD with cotinued decreased step length and height. She continues to have some minor LOB's requiring wall support to maintain balance. Pt was left in room, preparing for d/c. Gait Assessment Gait Gait Assistance Required: Standby Assistance,Contact Guard Assist Distance (Feet) 100 Able to Maintain Weight Bearing Status Yes During Gait Assistive Devices Assistive Device None,Gait Belt,Front Wheeled Walker Orthotic/Prosthetic Devices or Brace: No Gait Deviations General Gait Pattern Ataxic,Decreased Stride Length ,Decreased Feet Clearance,Step -to Gait,Wide Based Gait Factors Limiting Gait Function Factors Limiting Gait Function Abnormal Tonal Influences, Decreased Activity Tolerance, Decreased Strength,Difficulty Following Directions, Incoordination,Poor Balance, Poor Safety Awareness Comments Gait Comments See mobility comments PT-Balance Assessment Sitting Balance and Reactions Static Sitting Balance Ability Good Dynamic Sitting Balance Ability Fair Standing Balance and Reactions Static Standing Balance Ability Fair Dynamic Standing Balance Ability Fair Device Used FWW M5 PT-IP Objective Assessments Start: 12/03/23 07:43 Freq: NEEDED Status: Active Protocol: Document 12/03/23 10:40 MB (Rec: 12/03/23 11:25 MB [id number]) Orientation Orientation/Cognition Level of Alertness Alert Orientation Name,Age,Birthday,Month,Date, Year,Day of Week,Place, Situation Language Function Ability No Deficits Noted Safety Awareness Decreased Safety Awareness Memory Description No Deficits Noted Comments Poor historian Gross Range of Motion Upper Extremity ROM Impairments Defer to OT Lower Extremity ROM Assessment Within Functional Limits Strength Comments Strength Comments Pt cannot follow commands for MMT Coordination Assessment Assessment Finger to Nose Test Severe Impairment Heel on Figueroa Test Severe Impairment M6 PT-IP Treatment Start: 12/03/23 07:43 Freq: NEEDED Status: Active Protocol: Document 12/08/23 12:40 TS (Rec: 12/08/23 12:50 TS [id number]) Physical Therapy Treatment Education Education Provided Safety M7 PT-IP Assessment and Plan Start: 12/03/23 07:43 Freq: NEEDED Status: Active Protocol: Document 12/08/23 12:40 TS (Rec: 12/08/23 12:50 TS [id number]) PT Summary Assessment and Plan Potential Rehabilitation Potential Fair Summary Impairments Strength,Balance,Coordination, Bed Mobility,Transfers,Gait, Activity Tolerance Progress Towards Goals Progressing Toward Goals Assessment Summary Patty continues to make progress with her mobility. She has some increased step length and height with her steps but continues to be limited. She continues to have some minior LOB's requiring wall support at times. PT continues to recommend home with assist and HHPT. Goals Bed Mobility Goal Independent Transfer Goal Independent,Cane,Front Wheeled Walker Gait Goal Independent,Cane,Front Wheel Walker Gait Distance 100 Other Goals Pt will ascend and descend at least 3 steps with rail to allow safe home entry. Days to Meet Goals 10 Frequency of Treatment Frequency Of Treatment Once a Day Treatment Plan Physical Therapy Treatment Plan Bed Mobility Training,Transfer Training,Gait Training, Therapeutic Exercise,Balance Retraining,Hot or Cold Pack, Neuromuscular Re-ed, Coordination Retraining,Manual Therapy Precautions Other Precautions fall risk, detox Weight Bearing Status Weight Bearing Status Weight Bear as Tolerated Recommendations To Nursing Amount of Assist Needed 1 Person Assist Discharge Recommendations PT Discharge Recommendations Home with Assistance,Home Health,Outpatient PT Other Discharge Recommendations May need FWW Transportation Needs at Discharge Private Vehicle
--- NOTE | 2023-12-08 13:05 | PC.NURSE ---
Discharge: Pt A&Ox4, agreeable to discharge. FRENCH COMBER provided pt with information on new primary care providers, notified pt of choices of telehealth programs if unable to find PCP quickly. Education provided on fall prevention, stroke s/s, diet, etc. PICC discontinued. Pt verbalizes understanding. Wheeled via w/c to private vehicle with this RN and step grandmother at approximately 1255.
== END 2023-12-08 12:55 | disposition home health service (06) | DRG 775 ==
LOC: ED 18:28 → AC 18:37 → ICU 18:41
PROVIDERS: Anesthesiology Critical Care Medicine; Internal Medicine; Student in an Organized Health Care Education/Training Program; Admitting Provider Internal Medicine; Emergency Provider Emergency Medicine; Referring Provider Emergency Medicine; Visit Provider Internal Medicine
DX: F10.232 Alcohol dependence with withdrawal with perceptual disturbance (principal); Y90.8 Blood alcohol level of 240 mg/100 ml or more; D69.59 Other secondary thrombocytopenia; E43 Unspecified severe protein-calorie malnutrition; E87.6 Hypokalemia; E87.1 Hypo-osmolality and hyponatremia; F17.290 Nicotine dependence, other tobacco product, uncomplicated; G40.909 Epilepsy, unspecified, not intractable, without status epilepticus; N30.00 Acute cystitis without hematuria; Z68.1 Body mass index [BMI] 19.9 or less, adult
CPT/HCPCS: 36415; 36569; 36592; 70450; 71045; 80048; 80053; 80320; 81001; 81015; 81025; 83605; 83690; 83735; 84145; 84702; 85007; 85025; 85610; 85730; 87040; 87077; 87086; 87186; 87797; 93005; 96365; 96375; 97116; 97129; 97130; 97163; 97167; 97530; 97535; 99233; 99284; 99291; A9270; J0696; J1642; J2060; J2405; J2543; J2560; J3475

== ENCOUNTER 2024-01-03 22:19 | Emergency (ER) | payer OTHER, MEDICAID, SELFPAY ==
[2023-11-28 19:25] VITALS: BMI 21.2
[2024-01-03] VITALS (7 sets, daily range): BP systolic 109–125; BP diastolic 63–73; PULSE 74–88; RESP 14–18; TEMP 36.7; O2SAT 94–98; BMI 18.8
--- NOTE | 2024-01-03 22:53 | ED_ITS ---
HPI - Alcohol <Salome Arnold, DO - Last Filed: 01/04/24 23:59> General Chief Complaint: Toxicology Problem Stated Complaint: detox Time Seen by Provider: 01/03/24 22:49 Source: patient Mode of arrival: Ambulatory History of Present Illness HPI narrative: Patient is a 53-year-old female longstanding history of alcohol abuse drinks a 5th of whiskey daily history of alcohol withdrawal seizures presenting today for wanting detox. She was admitted November 27 through December 07 for alcohol withdrawal risk of severe DTs, requiring Precedex Ativan Librium ultimately discharged home with continuation of Vivitrol. She takes Keppra daily. She reports that she was sober for about 30 days. She was supposed to have some outpatient resources but unfortunately that fell through. She started drinking again 4 days ago. She continues to drink about facet whiskey daily. She is looking for detox. She has not fallen or hit her head she denies any head injury no nausea or vomiting. She is feeling shaking and seeing spiders that do not currently exists. Last drink was earlier today. Related Data Home Medications Medication Instructions Recorded Confirmed gabapentin 400 mg capsule 400 mg PO 3XD 11/29/23 11/30/23 naloxone 4 mg/actuation nasal spray 1 spray intranasal Q2M PRN Opioid 12/01/23 12/01/23 Overdose sertraline 100 mg tablet (Zoloft) 150 mg PO DAILY 01/04/24 01/04/24 Previous Rx's Medication Instructions Recorded naltrexone microspheres 380 mg 380 mg IM QMONTH 1 month #1 ea 12/07/23 intramuscular suspension,extended release (Vivitrol) buspirone 15 mg tablet 7.5 mg (1/2 x 15 mg) PO BID #90 12/08/23 tabs cephalexin 500 mg capsule 500 mg PO Q8H #10 caps 12/08/23 cholecalciferol (vitamin D3) 25 25 mcg PO 1XD #30 caps 12/08/23 mcg (1,000 unit) capsule (Vitamin D3) clonidine HCl 0.1 mg tablet 0.1 mg PO 3XD PRN Anxiety #60 tabs 12/08/23 fluticasone propionate 50 1 spray intranasal DAILY PRN 12/08/23 mcg/actuation nasal allergies #1 g spray,suspension folic acid 1 mg tablet 1 mg PO DAILY #30 tabs 12/08/23 gabapentin 300 mg capsule 300 mg PO 3XD #90 caps 12/08/23 hydroxyzine HCl 25 mg tablet 25 mg PO 3XD PRN anxiety #30 tabs 12/08/23 levetiracetam 500 mg tablet 500 mg PO BID #60 tabs 12/08/23 lorazepam 1 mg tablet 1 mg PO Q6HR PRN Anxiety #30 tabs 12/08/23 norgestimate 0.25 mg-ethinyl 1 tab PO DAILY #30 tabs 12/08/23 estradiol 35 mcg tablet phenazopyridine 100 mg tablet 100 mg PO TID PRN pain #10 tabs 12/08/23 (Pyridium) vits no.130-ferrous fum 1 tab PO DAILY #100 tabs 12/08/23 27 mg iron-folic acid 800 mcg tablet ( Vitamin) thiamine HCl (vitamin B1) 100 mg 100 mg PO DAILY #30 tabs 12/08/23 tablet (Vitamin B-1) trazodone 50 mg tablet 50 mg PO PRN PRN Sleep #30 tabs 12/08/23 Allergies Allergy/AdvReac Type Severity Reaction Status Date / Time No Known Drug Allergies Allergy Verified 11/28/23 15:18 Patient History <Salome Arnold DO - Last Filed: 01/04/24 23:59> Medical History Alcohol use disorder Social History household members: family Smoking Status: Current every day smoker alcohol intake: current Smoking Status: Current every day smoker tobacco type: vaping alcohol intake frequency: 3 or more drinks per day Alcohol type: hard liquor Substance Use Type: does not use Exam <Salome Arnold DO - Last Filed: 01/04/24 23:59> Initial Vital Signs Initial Vital Signs: Vital Signs Temperature 98.1 F 01/03/24 22:22 Pulse Rate 83 01/03/24 22:22 Respiratory Rate 18 01/03/24 22:22 Blood Pressure 125/63 01/03/24 22:22 Pulse Oximetry 98 01/03/24 22:22 Oxygen Delivery Method Room Air 01/03/24 22:22 GENERAL: Alert 33-year-old female and in no acute distress. HEENT: Head atraumatic,EOMI, pupils reactive, face symmetric, moist mucous membranes CARDIOVASCULAR: Regular rate and rhythm without murmurs, rubs or gallops. RESPIRATORY: Breath sounds equal bilaterally, no wheezes rales or rhonchi. ABDOMEN: Soft, nontender. Normoactive bowel sounds all 4 quadrants. No guarding or rebound. EXTREMITIES: Normal range of motion, no clubbing or edema. Neurovascularly intact NEUROLOGICAL: Alert and oriented x4. Cranial nerves II through XII grossly intact. Slurring of speech SKIN: Warm, dry, no laceration, no petechiae, no rashes or lesions. <Ricci Jasmine DO - Last Filed: 01/04/24 17:38> Initial Vital Signs Initial Vital Signs: Vital Signs Temperature 98.1 F 01/03/24 22:22 Pulse Rate 83 01/03/24 22:22 Respiratory Rate 18 01/03/24 22:22 Blood Pressure 125/63 01/03/24 22:22 Pulse Oximetry 98 01/03/24 22:22 Oxygen Delivery Method Room Air 01/03/24 22:22 Course <Salome Arnold DO - Last Filed: 01/04/24 23:59> Orders Ordered: Discontinued Medications Acetaminophen (Acetaminophen 325 Mg Tablet) 650 mg PO NOW ONE Stop: 01/03/24 22:52 Last Admin: 01/03/24 23:08 Dose: 650 mg Documented By: VICK Levetiracetam 500 mg/ Sodium (Chloride) 105 mls @ 420 mls/hr IV NOW ONE Stop: 01/03/24 22:52 Last Infusion: 01/03/24 23:35 Dose: Infused Documented By: Admin: 01/03/24 23:06 Dose: 420 mls/hr Documented By: VICK Sodium Chloride (Normal Saline 0.9%) 1,000 mls @ 1,000 mls/hr IV BOLUS ONE Stop: 01/03/24 23:50 Last Infusion: 01/04/24 00:50 Dose: Infused Documented By: Admin: 01/03/24 23:08 Dose: 1,000 mls/hr Documented By: VICK Thiamine HCl 200 mg/ Sodium (Chloride) 102 mls @ 408 mls/hr IV NOW ONE Stop: 01/03/24 22:53 Last Infusion: 01/03/24 23:35 Dose: Infused Documented By: Admin: 01/03/24 23:08 Dose: 408 mls/hr Documented By: VICK Sodium Chloride (Normal Saline 0.9%) 1,000 mls @ 125 mls/hr IV CONT LARY Last Infusion: 01/04/24 09:15 Dose: Infused Documented By: Admin: 01/04/24 01:06 Dose: 125 mls/hr Documented By: VICK Lorazepam (Lorazepam 2 Mg/Ml Inj) 2 mg IV NOW ONE Stop: 01/03/24 23:18 Last Admin: 01/03/24 23:33 Dose: 2 mg Documented By: VICK Lorazepam (Lorazepam 2 Mg/Ml Inj) 1 mg IV NOW ONE Stop: 01/04/24 06:19 Last Admin: 01/04/24 10:56 Dose: 1 mg Documented By: MARTHA Lorazepam (Lorazepam 2 Mg/Ml Inj) 1 mg IV NOW ONE Stop: 01/04/24 14:44 Last Admin: 01/04/24 15:09 Dose: 1 mg Documented By: MARTHA Lorazepam (Lorazepam 2 Mg/Ml Inj) 1 mg IV NOW ONE Stop: 01/04/24 18:13 Last Admin: 01/04/24 18:16 Dose: 1 mg Documented By: RICKEY Nicotine (Nicotine 7 Mg Patch) 7 mg TOP NOW ONE Stop: 01/04/24 14:44 Last Admin: 01/04/24 15:09 Dose: 7 mg Documented By: MARTHA Ondansetron HCl (Ondansetron 4 Mg/2 Ml Inj) 4 mg IV NOW ONE Stop: 01/03/24 22:52 Last Admin: 01/03/24 23:08 Dose: 4 mg Documented By: VICK Ondansetron HCl (Ondansetron 4 Mg/2 Ml Inj) 4 mg IV NOW ONE Stop: 01/04/24 10:48 Last Admin: 01/04/24 10:56 Dose: 4 mg Documented By: MARTHA Phenobarbital (Phenobarbital 65 Mg/Ml Vial) 130 mg IV NOW ONE Stop: 01/03/24 23:18 Last Admin: 01/03/24 23:33 Dose: 130 mg Documented By: VICK Vital Signs Vital signs: Vital Signs - 8 hr 01/04/24 16:00 01/04/24 16:00 01/04/24 16:33 Pulse Rate 63 60 Respiratory Rate 17 Blood Pressure 103/74 Pulse Oximetry 95 77 L Oxygen Delivery Method 01/04/24 16:36 01/04/24 16:36 01/04/24 17:00 Pulse Rate 73 76 Respiratory Rate 15 19 Blood Pressure 125/81 Pulse Oximetry 90 L 92 Oxygen Delivery Method Room Air 01/04/24 18:11 01/04/24 18:12 01/04/24 18:12 Pulse Rate 79 72 Respiratory Rate 14 Blood Pressure 113/79 Pulse Oximetry Oxygen Delivery Method <Ricci Jasmine DO - Last Filed: 01/04/24 17:38> Orders Ordered: Discontinued Medications Acetaminophen (Acetaminophen 325 Mg Tablet) 650 mg PO NOW ONE Stop: 01/03/24 22:52 Last Admin: 01/03/24 23:08 Dose: 650 mg Documented By: VICK Levetiracetam 500 mg/ Sodium (Chloride) 105 mls @ 420 mls/hr IV NOW ONE Stop: 01/03/24 22:52 Last Infusion: 01/03/24 23:35 Dose: Infused Documented By: Admin: 01/03/24 23:06 Dose: 420 mls/hr Documented By: VICK Sodium Chloride (Normal Saline 0.9%) 1,000 mls @ 1,000 mls/hr IV BOLUS ONE Stop: 01/03/24 23:50 Last Infusion: 01/04/24 00:50 Dose: Infused Documented By: Admin: 01/03/24 23:08 Dose: 1,000 mls/hr Documented By: VICK Thiamine HCl 200 mg/ Sodium (Chloride) 102 mls @ 408 mls/hr IV NOW ONE Stop: 01/03/24 22:53 Last Infusion: 01/03/24 23:35 Dose: Infused Documented By: Admin: 01/03/24 23:08 Dose: 408 mls/hr Documented By: VICK Sodium Chloride (Normal Saline 0.9%) 1,000 mls @ 125 mls/hr IV CONT LARY Last Infusion: 01/04/24 09:15 Dose: Infused Documented By: Admin: 01/04/24 01:06 Dose: 125 mls/hr Documented By: VICK Lorazepam (Lorazepam 2 Mg/Ml Inj) 2 mg IV NOW ONE Stop: 01/03/24 23:18 Last Admin: 01/03/24 23:33 Dose: 2 mg Documented By: VICK Lorazepam (Lorazepam 2 Mg/Ml Inj) 1 mg IV NOW ONE Stop: 01/04/24 06:19 Last Admin: 01/04/24 10:56 Dose: 1 mg Documented By: MARTHA Lorazepam (Lorazepam 2 Mg/Ml Inj) 1 mg IV NOW ONE Stop: 01/04/24 14:44 Last Admin: 01/04/24 15:09 Dose: 1 mg Documented By: MARTHA Lorazepam (Lorazepam 2 Mg/Ml Inj) 1 mg IV NOW ONE Stop: 01/04/24 18:13 Last Admin: 01/04/24 18:16 Dose: 1 mg Documented By: RICKEY Nicotine (Nicotine 7 Mg Patch) 7 mg TOP NOW ONE Stop: 01/04/24 14:44 Last Admin: 01/04/24 15:09 Dose: 7 mg Documented By: MARTHA Ondansetron HCl (Ondansetron 4 Mg/2 Ml Inj) 4 mg IV NOW ONE Stop: 01/03/24 22:52 Last Admin: 01/03/24 23:08 Dose: 4 mg Documented By: VICK Ondansetron HCl (Ondansetron 4 Mg/2 Ml Inj) 4 mg IV NOW ONE Stop: 01/04/24 10:48 Last Admin: 01/04/24 10:56 Dose: 4 mg Documented By: MARTHA Phenobarbital (Phenobarbital 65 Mg/Ml Vial) 130 mg IV NOW ONE Stop: 01/03/24 23:18 Last Admin: 01/03/24 23:33 Dose: 130 mg Documented By: VICK Vital Signs Vital signs: Vital Signs - 8 hr 01/04/24 16:00 01/04/24 16:00 01/04/24 16:33 Pulse Rate 63 60 Respiratory Rate 17 Blood Pressure 103/74 Pulse Oximetry 95 77 L Oxygen Delivery Method 01/04/24 16:36 01/04/24 16:36 01/04/24 17:00 Pulse Rate 73 76 Respiratory Rate 15 19 Blood Pressure 125/81 Pulse Oximetry 90 L 92 Oxygen Delivery Method Room Air 01/04/24 18:11 01/04/24 18:12 01/04/24 18:12 Pulse Rate 79 72 Respiratory Rate 14 Blood Pressure 113/79 Pulse Oximetry Oxygen Delivery Method MDM - Alcohol <Salome Arnold DO - Last Filed: 01/04/24 23:59> Lab Data 01/03/24 22:39 01/03/24 22:39 Labs: Lab Results 01/03/24 01/03/24 01/04/24 Range/Units 22:39 22:47 00:54 WBC 6.1 (4.5-11.0) X10^3/uL RBC 3.94 L (4.0-5.2) X10^6/uL Hgb 12.6 (12.0-16.0) g/dL Hct 37.7 (36-46) % MCV 95.8 (80-100) fL MCH 32.0 (26-34) PG MCHC 33.4 (30-36) % RDW 14.4 (11.6-14.8) % Plt Count 299 (150-400) X10^3/uL Neut % (Auto) 53.2 (50-75) % Lymph % (Auto) 41.7 H (25-40) % [place] % (Auto) 4.1 (3-14) % Eos % (Auto) 0.4 L (2-4) % Baso % (Auto) 0.6 (0-2) % Neut # (Auto) 3300 (7131-4111) /uL Lymph # (Auto) 2600 (0175-8168) /uL [place] # (Auto) 300 (0-900) /uL Eos # (Auto) 0 (0-450) /uL Baso # (Auto) 0 (0-100) /uL Sodium 147 H (137-145) mmol/L Potassium 3.7 (3.4-5.1) mmol/L Chloride 109 H (98-107) mmol/L Carbon Dioxide 25 (22-32) mmol/L BUN 12 (7-17) mg/dL Creatinine 0.70 (0.52-1.04) mg/dL Estimated GFR > 60 (>60) mL/min BUN/Creatinine Ratio 17.1 (6-22) Glucose 132 H (70-100) mg/dL Calcium 9.0 (8.4-10.2) mg/dL Total Bilirubin 0.3 (0.2-1.3) mg/dL AST 39 H (14-36) IU/L ALT 24 (<35) IU/L Alkaline Phosphatase 49 (38-126) U/L Total Protein 7.6 (6.3-8.2) g/dL Albumin 4.7 (3.5-5.0) g/dL Globulin 2.9 (1.7-4.1) g/dL Albumin/Globulin Ratio 1.6 (1.0-2.8) Lipase 264 (23-300) U/L Urine Color Urine Appearance Urine pH (4.5-8.0) Ur Specific [place] (1.000-1.035) Urine Protein (Negative) Urine Glucose (UA) (Negative) g/dL Urine Ketones (NEGATIVE) Urine Occult Blood (Negative) Urine Nitrate (Negative) Urine Bilirubin (NEGATIVE) Urine Urobilinogen (0.2) E.U./dL Ur Leukocyte Esterase (NEGATIVE) Urine RBC (0-5/HPF) Urine WBC (0-5/HPF) Ur Squamous Epith Cells (0-5/HPF) Urine Bacteria (None) Urine Mucus (Negative) Ur Culture Indicated? Vol Urine Centrifuged Urine Test Negative (Negative) U Opiates 300ng/mL cut (Negative) Ur Oxycodone Screen (Negative) Urine Methadone Screen (Negative) Ur Barbiturates Screen (Negative) U Tricyclic Antidepress (Negative) Ur Phencyclidine Scrn (Negative) Ur Amphetamines Screen (Negative) U Methamphetamines Scrn (Negative) Ur MDMA Scrn (Ecstasy) (Negative) U Benzodiazepines Scrn (Negative) Urine Cocaine Screen (Negative) U Marijuana (THC) Screen (Negative) Urine Specific [place] (Normal) Ethyl Alcohol 289 H ( - 10) mg/dL Ur Creatinine (Normal) SARS-CoV-2 (PCR) Negative (Negative) 01/04/24 01/04/24 Range/Units 03:11 03:11 WBC (4.5-11.0) X10^3/uL RBC (4.0-5.2) X10^6/uL Hgb (12.0-16.0) g/dL Hct (36-46) % MCV (80-100) fL MCH (26-34) PG MCHC (30-36) % RDW (11.6-14.8) % Plt Count (150-400) X10^3/uL Neut % (Auto) (50-75) % Lymph % (Auto) (25-40) % [place] % (Auto) (3-14) % Eos % (Auto) (2-4) % Baso % (Auto) (0-2) % Neut # (Auto) (0184-0915) /uL Lymph # (Auto) (6469-8158) /uL [place] # (Auto) (0-900) /uL Eos # (Auto) (0-450) /uL Baso # (Auto) (0-100) /uL Sodium (137-145) mmol/L Potassium (3.4-5.1) mmol/L Chloride (98-107) mmol/L Carbon Dioxide (22-32) mmol/L BUN (7-17) mg/dL Creatinine (0.52-1.04) mg/dL Estimated GFR (>60) mL/min BUN/Creatinine Ratio (6-22) Glucose (70-100) mg/dL Calcium (8.4-10.2) mg/dL Total Bilirubin (0.2-1.3) mg/dL AST (14-36) IU/L ALT (<35) IU/L Alkaline Phosphatase (38-126) U/L Total Protein (6.3-8.2) g/dL Albumin (3.5-5.0) g/dL Globulin (1.7-4.1) g/dL Albumin/Globulin Ratio (1.0-2.8) Lipase (23-300) U/L Urine Color Yellow Urine Appearance Clear Urine pH 6.0 Normal (4.5-8.0) Ur Specific [place] >=1.030 H (1.000-1.035) Urine Protein Trace H (Negative) Urine Glucose (UA) Negative (Negative) g/dL Urine Ketones Trace H (NEGATIVE) Urine Occult Blood Negative (Negative) Urine Nitrate Negative (Negative) Urine Bilirubin Negative (NEGATIVE) Urine Urobilinogen 0.2 (0.2) E.U./dL Ur Leukocyte Esterase Negative (NEGATIVE) Urine RBC 0-1/hpf (0-5/HPF) Urine WBC 0-1/hpf (0-5/HPF) Ur Squamous Epith Cells 1-5 /hpf (0-5/HPF) Urine Bacteria Few (2-10) H (None) Urine Mucus 1+ H (Negative) Ur Culture Indicated? Cult not indicated Vol Urine Centrifuged 10ml (spun) Urine Test (Negative) U Opiates 300ng/mL cut Negative (Negative) Ur Oxycodone Screen Negative (Negative) Urine Methadone Screen Negative (Negative) Ur Barbiturates Screen Negative (Negative) U Tricyclic Antidepress Negative (Negative) Ur Phencyclidine Scrn Negative (Negative) Ur Amphetamines Screen Negative (Negative) U Methamphetamines Scrn Negative (Negative) Ur MDMA Scrn (Ecstasy) Negative (Negative) U Benzodiazepines Scrn Positive H (Negative) Urine Cocaine Screen Negative (Negative) U Marijuana (THC) Screen Negative (Negative) Urine Specific [place] Normal (Normal) Ethyl Alcohol ( - 10) mg/dL Ur Creatinine Normal (Normal) SARS-CoV-2 (PCR) (Negative) MDM Narrative Medical decision making narrative: Patient 33-year-old female history of alcohol abuse presents today for wanting detox. She has been on a 4-5 day binge drinking episode. She is previously required hospitalizations for DTs. She would like to be sober she was recently sober. She reports that AA works for her. Blood work reviewed WBC 6.1 hemoglobin 12.6, platelets 299 last month they were as low as 47 and discharge they were 251. Sodium 147 previously 134, potassium 3.7, chloride 109, carbon dioxide 25, BUN 12, creatinine 0.7, glucose 132, bilirubin 0.3, AST 39, ALT 24, alcohol level 289 Patient is not tachycardic not actively having shaking tremors. She previously has had a subarachnoid hemorrhage but denies any headache nausea or vomiting platelets are within normal limits today she does not have any thrombocytopenia. She has no trauma. She is to have contusion left infraorbital region she reports that is old she apparently had some necrotizing fasciitis a year ago around her eye and was at [facility] for 3 weeks. She denies any trauma or injury. Patient has received Ativan and phenobarbital she was sleeping most of the evening. Never tachycardic seems to be well-controlled. Blood work is overall improved today from previous. Does not seem to meet admission criteria at this time. Attempted detox [facility] she was denied Attempted [facility] Patient signed out to Dr. Jasmine <Ricci Jasmine, DO - Last Filed: 01/04/24 17:38> Lab Data Labs: Lab Results 01/03/24 01/03/24 01/04/24 Range/Units 22:39 22:47 00:54 WBC 6.1 (4.5-11.0) X10^3/uL RBC 3.94 L (4.0-5.2) X10^6/uL Hgb 12.6 (12.0-16.0) g/dL Hct 37.7 (36-46) % MCV 95.8 (80-100) fL MCH 32.0 (26-34) PG MCHC 33.4 (30-36) % RDW 14.4 (11.6-14.8) % Plt Count 299 (150-400) X10^3/uL Neut % (Auto) 53.2 (50-75) % Lymph % (Auto) 41.7 H (25-40) % [place] % (Auto) 4.1 (3-14) % Eos % (Auto) 0.4 L (2-4) % Baso % (Auto) 0.6 (0-2) % Neut # (Auto) 3300 (2870-5894) /uL Lymph # (Auto) 2600 (2001-7504) /uL [place] # (Auto) 300 (0-900) /uL Eos # (Auto) 0 (0-450) /uL Baso # (Auto) 0 (0-100) /uL Sodium 147 H (137-145) mmol/L Potassium 3.7 (3.4-5.1) mmol/L Chloride 109 H (98-107) mmol/L Carbon Dioxide 25 (22-32) mmol/L BUN 12 (7-17) mg/dL Creatinine 0.70 (0.52-1.04) mg/dL Estimated GFR > 60 (>60) mL/min BUN/Creatinine Ratio 17.1 (6-22) Glucose 132 H (70-100) mg/dL Calcium 9.0 (8.4-10.2) mg/dL Total Bilirubin 0.3 (0.2-1.3) mg/dL AST 39 H (14-36) IU/L ALT 24 (<35) IU/L Alkaline Phosphatase 49 (38-126) U/L Total Protein 7.6 (6.3-8.2) g/dL Albumin 4.7 (3.5-5.0) g/dL Globulin 2.9 (1.7-4.1) g/dL Albumin/Globulin Ratio 1.6 (1.0-2.8) Lipase 264 (23-300) U/L Urine Color Urine Appearance Urine pH (4.5-8.0) Ur Specific [place] (1.000-1.035) Urine Protein (Negative) Urine Glucose (UA) (Negative) g/dL Urine Ketones (NEGATIVE) Urine Occult Blood (Negative) Urine Nitrate (Negative) Urine Bilirubin (NEGATIVE) Urine Urobilinogen (0.2) E.U./dL Ur Leukocyte Esterase (NEGATIVE) Urine RBC (0-5/HPF) Urine WBC (0-5/HPF) Ur Squamous Epith Cells (0-5/HPF) Urine Bacteria (None) Urine Mucus (Negative) Ur Culture Indicated? Vol Urine Centrifuged Urine Test Negative (Negative) U Opiates 300ng/mL cut (Negative) Ur Oxycodone Screen (Negative) Urine Methadone Screen (Negative) Ur Barbiturates Screen (Negative) U Tricyclic Antidepress (Negative) Ur Phencyclidine Scrn (Negative) Ur Amphetamines Screen (Negative) U Methamphetamines Scrn (Negative) Ur MDMA Scrn (Ecstasy) (Negative) U Benzodiazepines Scrn (Negative) Urine Cocaine Screen (Negative) U Marijuana (THC) Screen (Negative) Urine Specific [place] (Normal) Ethyl Alcohol 289 H ( - 10) mg/dL Ur Creatinine (Normal) SARS-CoV-2 (PCR) Negative (Negative) 01/04/24 01/04/24 Range/Units 03:11 03:11 WBC (4.5-11.0) X10^3/uL RBC (4.0-5.2) X10^6/uL Hgb (12.0-16.0) g/dL Hct (36-46) % MCV (80-100) fL MCH (26-34) PG MCHC (30-36) % RDW (11.6-14.8) % Plt Count (150-400) X10^3/uL Neut % (Auto) (50-75) % Lymph % (Auto) (25-40) % [place] % (Auto) (3-14) % Eos % (Auto) (2-4) % Baso % (Auto) (0-2) % Neut # (Auto) (8575-6912) /uL Lymph # (Auto) (2856-0128) /uL [place] # (Auto) (0-900) /uL Eos # (Auto) (0-450) /uL Baso # (Auto) (0-100) /uL Sodium (137-145) mmol/L Potassium (3.4-5.1) mmol/L Chloride (98-107) mmol/L Carbon Dioxide (22-32) mmol/L BUN (7-17) mg/dL Creatinine (0.52-1.04) mg/dL Estimated GFR (>60) mL/min BUN/Creatinine Ratio (6-22) Glucose (70-100) mg/dL Calcium (8.4-10.2) mg/dL Total Bilirubin (0.2-1.3) mg/dL AST (14-36) IU/L ALT (<35) IU/L Alkaline Phosphatase (38-126) U/L Total Protein (6.3-8.2) g/dL Albumin (3.5-5.0) g/dL Globulin (1.7-4.1) g/dL Albumin/Globulin Ratio (1.0-2.8) Lipase (23-300) U/L Urine Color Yellow Urine Appearance Clear Urine pH 6.0 Normal (4.5-8.0) Ur Specific [place] >=1.030 H (1.000-1.035) Urine Protein Trace H (Negative) Urine Glucose (UA) Negative (Negative) g/dL Urine Ketones Trace H (NEGATIVE) Urine Occult Blood Negative (Negative) Urine Nitrate Negative (Negative) Urine Bilirubin Negative (NEGATIVE) Urine Urobilinogen 0.2 (0.2) E.U./dL Ur Leukocyte Esterase Negative (NEGATIVE) Urine RBC 0-1/hpf (0-5/HPF) Urine WBC 0-1/hpf (0-5/HPF) Ur Squamous Epith Cells 1-5 /hpf (0-5/HPF) Urine Bacteria Few (2-10) H (None) Urine Mucus 1+ H (Negative) Ur Culture Indicated? Cult not indicated Vol Urine Centrifuged 10ml (spun) Urine Test (Negative) U Opiates 300ng/mL cut Negative (Negative) Ur Oxycodone Screen Negative (Negative) Urine Methadone Screen Negative (Negative) Ur Barbiturates Screen Negative (Negative) U Tricyclic Antidepress Negative (Negative) Ur Phencyclidine Scrn Negative (Negative) Ur Amphetamines Screen Negative (Negative) U Methamphetamines Scrn Negative (Negative) Ur MDMA Scrn (Ecstasy) Negative (Negative) U Benzodiazepines Scrn Positive H (Negative) Urine Cocaine Screen Negative (Negative) U Marijuana (THC) Screen Negative (Negative) Urine Specific [place] Normal (Normal) Ethyl Alcohol ( - 10) mg/dL Ur Creatinine Normal (Normal) SARS-CoV-2 (PCR) (Negative) MDM Narrative Medical decision making narrative: Patient 33-year-old female history of alcohol abuse presents today for wanting detox. She has been on a 4-5 day binge drinking episode. She is previously required hospitalizations for DTs. She would like to be sober she was recently sober. She reports that AA works for her. Blood work reviewed WBC 6.1 hemoglobin 12.6, platelets 299 last month they were as low as 47 and discharge they were 251. Sodium 147 previously 134, potassium 3.7, chloride 109, carbon dioxide 25, BUN 12, creatinine 0.7, glucose 132, bilirubin 0.3, AST 39, ALT 24, alcohol level 289 Patient is not tachycardic not actively having shaking tremors. She previously has had a subarachnoid hemorrhage but denies any headache nausea or vomiting platelets are within normal limits today she does not have any thrombocytopenia. She has no trauma. She is to have contusion left infraorbital region she reports that is old she apparently had some necrotizing fasciitis a year ago around her eye and was at [facility] for 3 weeks. She denies any trauma or injury. Patient has received Ativan and phenobarbital she was sleeping most of the evening. Never tachycardic seems to be well-controlled. Blood work is overall improved today from previous. Does not seem to meet admission criteria at this time. Attempted detox at [facility] she was denied Attempted [facility] Patient signed out to Dr. Kenroy jasmine: Received turned over. Patient has been stable throughout the day. Has ambulated to the bathroom. Has required just a few additional doses of Ativan because of some shakiness. She was also given a nicotine patch. She took her home medications. She has been accepted to stabilization facility. Will arrange transport. Patient is stable for discharge. Discharge Plan Departure Patient Disposition: Home Clinical Impression: Alcohol abuse Instructions: DI for Alcohol Use Disorder Activity Restrictions/Additional Instructions: You are being discharged from the emergency department to go to rehab at [facility] stabilization facility. Is located at [address] [place] [address] in [facility]. Phone number [phone]. Prescriptions: No Action gabapentin 400 mg capsule 400 mg PO 3XD naloxone 4 mg/actuation [place],Non-Aerosol 1 spray INTRANASAL Q2M PRN (Reason: Opioid Overdose) Rx Instructions: spray 1 dose into ONE nostril; alternate nostrils w each dose until help arrives Vivitrol 380 mg suspension,extended rel recon 380 mg IM QMONTH 30 Days Qty: 1 0RF lorazepam 1 mg Tablet 1 mg PO Q6HR PRN (Reason: Anxiety) Qty: 30 0RF norgestimate-ethinyl estradiol 0.25-35 mg-mcg tablet 1 tab PO DAILY Qty: 30 0RF clonidine HCl 0.1 mg tablet 0.1 mg PO 3XD PRN (Reason: Anxiety) Qty: 60 0RF trazodone 50 mg Tablet 50 mg PO PRN PRN (Reason: Sleep) Qty: 30 0RF levetiracetam 500 mg tablet 500 mg PO BID Qty: 60 0RF thiamine HCl (vitamin B1) [Vitamin B-1] 100 mg tablet 100 mg PO DAILY Qty: 30 0RF gabapentin 300 mg capsule 300 mg PO 3XD Qty: 90 0RF folic acid 1 mg tablet 1 mg PO DAILY Qty: 30 0RF hydroxyzine HCl 25 mg tablet 25 mg PO 3XD PRN (Reason: anxiety) Qty: 30 0RF fluticasone propionate 50 mcg/actuation [place],Suspension 1 spray INTRANASAL DAILY PRN (Reason: allergies) Qty: 1 0RF Rx Instructions: administer into each nostril buspirone 15 mg tablet 7.5 mg PO BID Qty: 90 0RF cholecalciferol (vitamin D3) [Vitamin D3] 25 mcg (1,000 unit) capsule 25 mcg PO 1XD Qty: 30 0RF Vitamin 27 mg iron- 800 mcg tablet 1 tab PO DAILY Qty: 100 0RF cephalexin 500 mg capsule 500 mg PO Q8H Qty: 10 0RF phenazopyridine [Pyridium] 100 mg tablet 100 mg PO TID PRN (Reason: pain) Qty: 10 0RF sertraline [Zoloft] 100 mg tablet 150 mg PO DAILY Stand Alone Forms: Patient Portal/API
[2024-01-03 23:00] LABS: Alanine Aminotransferase 24 IU/L (<35); Albumin 4.7 g/dL (3.5-5.0); Albumin Globulin Ratio 1.6 (1.0-2.8); Alkaline Phosphatase 49 U/L (38-126); Aspartate Aminotransferase 39 IU/L (14-36); BUN Creatinine Ratio 17.1 (6-22); Bilirubin Total 0.3 mg/dL (0.2-1.3); Blood Urea Nitrogen 12 mg/dL (7-17); Carbon Dioxide 25 mmol/L (22-32); Chloride 109 mmol/L (98-107); Estimated Glomerular Filt Rate > 60 mL/min (>60); Globulin 2.9 g/dL (1.7-4.1); Glucose 132 mg/dL (70-100); HEMOLYSIS < 15 (0-50); Potassium 3.7 mmol/L (3.4-5.1); Sodium 147 mmol/L (137-145); Total Protein 7.6 g/dL (6.3-8.2)
[2024-01-03 23:01] LABS: Add Manual Diff / Slide Review NO; Basophils Absolute Auto 0 /uL (0-100); Basophils Percent Auto 0.6 % (0-2); Eosinophils Absolute Auto 0 /uL (0-450); Eosinophils Percent Auto 0.4 % (2-4); Ethanol (ETOH) 289 mg/dL; Hematocrit 37.7 % (36-46); Hemoglobin 12.6 g/dL (12.0-16.0); Lymphocytes Absolute Auto 2600 /uL (1100-4500); Lymphocytes Percent Auto 41.7 % (25-40); Mean Corpuscular HGB Conc 33.4 % (30-36); Mean Corpuscular Volume 95.8 fL (80-100); Monocytes Absolute Auto 300 /uL (0-900); Monocytes Percent Auto 4.1 % (3-14); Neutrophils Absolute Auto 3300 /uL (1500-7000); Neutrophils Percent Auto 53.2 % (50-75); Platelet Count 299 X10^3/uL (150-400); Red Blood Cell Count 3.94 X10^6/uL (4.0-5.2); Red Cell Distribution Width 14.4 % (11.6-14.8); White Blood Cell Count 6.1 X10^3/uL (4.5-11.0)
[2024-01-03 23:06] LABS: Lipase 264 U/L (23-300)
[2024-01-03] MEDS: levETIRAcetam 500 MG in SODIUM CHLORIDE 0.9% 100 ML 420 MG IV (23:06)
[2024-01-03] MEDS: ACETAMINOPHEN 325 MG TABLET 650 MG PO (23:08)
[2024-01-03] MEDS: SODIUM CHLORIDE 0.9% 1,000 ML 1000 ML IV (23:08)
[2024-01-03] MEDS: THIAMINE 200 MG in SODIUM CHLORIDE 0.9% 100 ML 408 MG IV (23:08)
[2024-01-03] MEDS: ONDANSETRON 4 MG/2 ML INJ IV (23:08)
[2024-01-03 23:15] LABS: COVID19 -Nasal RAPID Negative (Negative)
[2024-01-03] MEDS: PHENobarbital 65 MG/ML VIAL 130 MG IV (23:33)
[2024-01-03] MEDS: LORazepam 2 MG/ML INJ IV (23:33)
[2024-01-04] VITALS (44 sets, daily range): BP systolic 91–125; BP diastolic 54–82; PULSE 60–96; RESP 11–23; O2SAT 77–100
--- NOTE | 2024-01-04 01:00 | PC.NURSE ---
Patient was escorted to the bathroom in wheelchair. Pt was unable to provide urine.
[2024-01-04 01:03] LABS: Pregnancy Test Urine Negative (Negative)
[2024-01-04] MEDS: SODIUM CHLORIDE 0.9% 1,000 ML 125 ML IV (01:06)
[2024-01-04 03:24] LABS: Appearance Urine UA CLEAR; Bilirubin Urine UA NEGATIVE (NEGATIVE); Color Urine UA YELLOW; Glucose Urine UA NEGATIVE (Negative); Ketones Urine UA TRACE (NEGATIVE); Leukocyte Esterase Urine UA NEGATIVE (NEGATIVE); Nitrite Urine UA NEGATIVE (Negative); Occult Blood Urine UA NEGATIVE (Negative); Protein Urine UA TRACE (Negative); Specific Gravity Urine UA >=1.030 (1.000-1.035); Urobilinogen Urine UA 0.2 E.U./dL (0.2)
[2024-01-04 03:28] LABS: UR Morphine/Opiate cutoff 300 Negative (Negative); Ur Creatinine Normal (Normal); Ur Specific Gravity Normal (Normal); Urine Amphetamines Negative (Negative); Urine Barbiturates Negative (Negative); Urine Benzodiazepines Positive (Negative); Urine Cocaine Negative (Negative); Urine MDMA Negative (Negative); Urine Methadone Negative (Negative); Urine Methamphetamines Negative (Negative); Urine Oxycodone Negative (Negative); Urine Phencyclidine Negative (Negative); Urine Tetrahydrocannabinol Negative (Negative); Urine Tricyclic Antidepressant Negative (Negative); Urine pH Normal (Normal)
[2024-01-04 03:30] LABS: Urine Volume 10mL (spun)
[2024-01-04 03:31] LABS: RBC Urine 0-1/HPF (0-5/HPF)
[2024-01-04 03:32] LABS: Bacteria Urine Few (2-10)
[2024-01-04 03:33] LABS: Culture Indicated Urine Cult Not Indicated; Mucus Urine 1+ (Negative)
[2024-01-04 03:35] LABS: WBC Urine 0-1/HPF (0-5/HPF)
[2024-01-04 03:36] LABS: Squamous Epithelial Cell Urine 1-5 /HPF (0-5/HPF)
--- NOTE | 2024-01-04 05:46 | PC.NURSE ---
[facility] declined d/t a high medical acuity. Patria Chu contacted and info faxed they will do a patient intake call and evaluate
--- NOTE | 2024-01-04 06:41 | PC.NURSE ---
Pt wanted to go to a detox facility. I called [facility] and spoke with So and she said to have a packet faxed over for them to review. I faxed the packet over at 2328. She had one of their nurses review her information. So called back and said that they declined the pt due to her medical acuity (history of seizures). I then called [facility] and they said to fax over a packet and have the pt call and do a phone screen. Packet was faxed at 0538 and had the pt talk to [facility] on the phone for her screen process. Pt was done on the phone and I asked her what they said and she that if we were to set up a transport she would be accepted. [facility] called back and said that [facility] and that she is wanting outpatient detox. BRANDON Cueto and Dr. Arnold was notified. Dr. Arnold talked to the pt and explained that she cannot go to an outpatient facility and if she did want to go to [facility] she would have to do the phone screen and tell them that she was wanting help and did want to go to their facility. The pt was given the phone again to complete the phone screen. Pt completed the phone screen and said that they are in the middle of shift change and would call once they review her information after the shift change. BRANDON Cueto and Dr. Arnold notified.
--- NOTE | 2024-01-04 09:50 | PC.NURSE ---
Pt sleeping in bed o2 saturation dropped. Initially pt was woken up and encouraged to take deep breathes with o2 increasing. after 10 minutes pt o2 dropped again (see vitals). Pt placed on 1L NC. Provider notified. Pt oriented and placed on o2 nasal cannula.
[2024-01-04] MEDS: LORazepam 2 MG/ML INJ 1 MG IV ×3 (10:56→18:16)
[2024-01-04] MEDS: ONDANSETRON 4 MG/2 ML INJ IV (10:56)
--- NOTE | 2024-01-04 11:38 | PC.NURSE ---
Provider okayed patient taking her normal daily medications. Pt given from her own medications (kept in locked locker #6) @1140 gabapentin 300mg Buspirone 7.5mg Keppra 500mg Sertraline 150mg
--- NOTE | 2024-01-04 11:46 | PC.NURSE ---
Addendum entered by Eleazar Lopez R.N. 01/04/24 11:51: Kaylee states Lucie Chaidez is accepting provider at [facility]. Original Note: I called [facility] stabilization center and talked with Kaylee again regarding pt's acceptance. Kaylee states that [facility] did accept patient and have a bed for her at 1800 tonight. Pt told Kaylee she could not get a ride their, I informed Kaylee we could arrange transportation for patient. ANTONIO Fields established a taxi ride with [employer] taxi through on [facility]. Taxi eta 1700 tonight. Pt informed of acceptance and transportation. Pt's medications are in the locked, locker #6.
--- NOTE | 2024-01-04 14:24 | PC.NURSE ---
Pt inquiring about what the day-day situation at [facility] will be in comparison to previous inpatient stays at other facilities. Pt questioning how many days she has to stay at facility. Clarified with patient that she is not involuntary and being detained. Pt expressed relief, stating her now ex- lied to the courts about pt having SI and she was forced to stay inpatient involuntarily. Pt informed that her taxi will be here to take her to [facility] at 1700. Again, clarified with patient that she is not being forced to go to [facility]. PT expressed relief.
[2024-01-04] MEDS: NICOTINE 7 MG PATCH TOP (15:09)
--- NOTE | 2024-01-04 18:20 | PC.NURSE ---
Called [employer]icaid taxi for transportation was told to fill out form and fax it and they would have patient on list for pickling machine operator time for 1700. Transportation didn't show up. Called the after hours line and had a wait time for pickling machine operator between 1 hour to a few hours, stated by special education bus driver. Ended up calling [facility] with a pickling machine operator time for 1830
== END 2024-01-04 18:41 | disposition home or self-care (01) ==
PROVIDERS: Emergency Medicine; Emergency Provider Emergency Medicine
DX: F10.10 Alcohol abuse, uncomplicated (principal); Y90.8 Blood alcohol level of 240 mg/100 ml or more
CPT/HCPCS: 36415; 80053; 80305; 80320; 81001; 81025; 83690; 85025; 87635; 93005; 96365; 96375; 96376; 99284; 99285; J1953; J2060; J2405; J2560

== ENCOUNTER 2024-02-11 20:48 | Emergency (ER) | payer OTHER, MEDICAID, SELFPAY ==
[2023-11-28 19:25] VITALS: BMI 21.2
[2024-02-11 20:58] VITALS: BP 99/70; PULSE 75; RESP 18; TEMP 36.7; O2SAT 98; BMI 18.8
[2024-02-11 22:37] VITALS: PULSE 79; O2SAT 100
--- NOTE | 2024-02-11 22:41 | ED_ITS ---
HPI - General Adult <Ricci Jasmine DO - Last Filed: 02/12/24 17:54> General Chief complaint: Toxicology Problem Stated complaint: Etoh Time Seen by Provider: 02/11/24 22:27 Source: patient and EMS Mode of arrival: EMS History of Present Illness HPI narrative: Patient is a 33-year-old female. Has a significant alcohol use history. Has been to alcohol detox/rehab multiple times in the past. She states that yesterday she drank almost a half a gal of alcohol. Apparently was family members who contacted EMS to bring her here to the emergency department. Initially she stated that she did want to be here in the ER. She stated that she was interested in detox but did not want inpatient rehab. She does have a seizure history and takes Keppra for this. She was unsure as to whether not she took her Keppra earlier today. Also has a history of anxiety. Has had some issues with low blood pressure so she was told to stop taking her clonidine which she is done so. She denies any nausea vomiting or chest pain. Is feeling somewhat anxious. Related Data Home Medications Medication Instructions Recorded Confirmed gabapentin 400 mg capsule 400 mg PO 3XD 11/29/23 11/30/23 naloxone 4 mg/actuation nasal spray 1 spray intranasal Q2M PRN Opioid 12/01/23 12/01/23 Overdose sertraline 100 mg tablet (Zoloft) 150 mg PO DAILY 01/04/24 01/04/24 Previous Rx's Medication Instructions Recorded buspirone 15 mg tablet 7.5 mg (1/2 x 15 mg) PO BID #90 12/08/23 tabs cephalexin 500 mg capsule 500 mg PO Q8H #10 caps 12/08/23 cholecalciferol (vitamin D3) 25 25 mcg PO 1XD #30 caps 12/08/23 mcg (1,000 unit) capsule (Vitamin D3) clonidine HCl 0.1 mg tablet 0.1 mg PO 3XD PRN Anxiety #60 tabs 12/08/23 fluticasone propionate 50 1 spray intranasal DAILY PRN 12/08/23 mcg/actuation nasal allergies #1 g spray,suspension folic acid 1 mg tablet 1 mg PO DAILY #30 tabs 12/08/23 gabapentin 300 mg capsule 300 mg PO 3XD #90 caps 12/08/23 hydroxyzine HCl 25 mg tablet 25 mg PO 3XD PRN anxiety #30 tabs 12/08/23 levetiracetam 500 mg tablet 500 mg PO BID #60 tabs 12/08/23 lorazepam 1 mg tablet 1 mg PO Q6HR PRN Anxiety #30 tabs 12/08/23 norgestimate 0.25 mg-ethinyl 1 tab PO DAILY #30 tabs 12/08/23 estradiol 35 mcg tablet phenazopyridine 100 mg tablet 100 mg PO TID PRN pain #10 tabs 12/08/23 (Pyridium) vits no.130-ferrous fum 1 tab PO DAILY #100 tabs 12/08/23 27 mg iron-folic acid 800 mcg tablet ( Vitamin) thiamine HCl (vitamin B1) 100 mg 100 mg PO DAILY #30 tabs 12/08/23 tablet (Vitamin B-1) trazodone 50 mg tablet 50 mg PO PRN PRN Sleep #30 tabs 12/08/23 Allergies Allergy/AdvReac Type Severity Reaction Status Date / Time No Known Drug Allergies Allergy Verified 11/28/23 15:18 Review of Systems <Ricci Jasmine DO - Last Filed: 02/12/24 17:54> Review of Systems Narrative: See HPI Patient History <Ricci Jasmine DO - Last Filed: 02/12/24 17:54> Medical History Alcohol use disorder Social History household members: family Smoking Status: Current every day smoker alcohol intake: current Smoking Status: Current every day smoker tobacco type: vaping alcohol intake frequency: 3 or more drinks per day Alcohol type: hard liquor Substance Use Type: does not use Exam <Ricci Jasmine DO - Last Filed: 02/12/24 17:54> Initial Vital Signs Initial Vital Signs: Vital Signs Temperature 98.1 F 02/11/24 20:58 Pulse Rate 75 02/11/24 20:58 Respiratory Rate 18 02/11/24 20:58 Blood Pressure 99/70 02/11/24 20:58 Pulse Oximetry 98 02/11/24 20:58 Oxygen Delivery Method Room Air 02/11/24 20:58 Const General: anxious, No diaphoretic, disheveled and No ill appearing HENMT Head: normal to inspection and normocephalic Resp Effort & Inspection: normal respiratory effort Cardio Rate: regular rate GI Inspection: normal to inspection Neuro General: patient alert, patient awake, patient oriented x3 and moves all extremities Extrem General: normal to inspection <Dwayne Thomas MD - Last Filed: 02/12/24 19:23> Initial Vital Signs Initial Vital Signs: Vital Signs Temperature 98.1 F 02/11/24 20:58 Pulse Rate 75 02/11/24 20:58 Respiratory Rate 18 02/11/24 20:58 Blood Pressure 99/70 02/11/24 20:58 Pulse Oximetry 98 02/11/24 20:58 Oxygen Delivery Method Room Air 02/11/24 20:58 Course <Ricci Jasmine DO - Last Filed: 02/12/24 17:54> Orders Ordered: Discontinued Medications Chlordiazepoxide HCl (Chlordiazepoxide 25 Mg Capsule) 25 mg PO NOW ONE Stop: 02/11/24 22:42 Last Admin: 02/11/24 22:51 Dose: 25 mg Documented By: JUJU Chlordiazepoxide HCl (Chlordiazepoxide 25 Mg Capsule) 25 mg PO NOW ONE Stop: 02/12/24 05:41 Last Admin: 02/12/24 05:46 Dose: 25 mg Documented By: JUJU Hydroxyzine HCl (Hydroxyzine Hcl 25 Mg Tablet) 50 mg PO NOW ONE Stop: 02/12/24 08:46 Last Admin: 02/12/24 08:52 Dose: 50 mg Documented By: RIDGE Thiamine HCl 100 mg/ Sodium (Chloride) 101 mls @ 404 mls/hr IV NOW ONE Stop: 02/11/24 23:30 Last Infusion: 02/12/24 00:27 Dose: Infused Documented By: Admin: 02/11/24 23:51 Dose: 404 mls/hr Documented By: RUMA Levetiracetam (Levetiracetam 250 Mg Tablet) 500 mg PO NOW ONE Stop: 02/12/24 02:51 Last Admin: 02/12/24 03:00 Dose: 500 mg Documented By: RIDGE(2) Levetiracetam (Levetiracetam 250 Mg Tablet) 500 mg PO NOW ONE Stop: 02/12/24 08:47 Last Admin: 02/12/24 08:52 Dose: 500 mg Documented By: RIDGE Nicotine (Nicotine 14 Patch) 14 mg TOP NOW ONE Stop: 02/12/24 07:28 Last Admin: 02/12/24 07:32 Dose: 14 mg Documented By: PAT Ondansetron HCl (Ondansetron 4 Mg/2 Ml Inj) 4 mg IV NOW ONE Stop: 02/12/24 01:01 Last Admin: 02/12/24 01:06 Dose: 4 mg Documented By: JUJU Ondansetron HCl (Ondansetron 4 Mg/2 Ml Inj) 4 mg IV Q4HR PRN PRN Reason: Nausea And Vomiting Ondansetron HCl (Ondansetron 4 Mg Odt) 4 mg SL NOW ONE Stop: 02/12/24 05:41 Last Admin: 02/12/24 05:46 Dose: 4 mg Documented By: JUJU Vital Signs Vital signs: Vital Signs - 8 hr 02/12/24 11:30 02/12/24 11:30 02/12/24 12:00 Pulse Rate 83 86 Respiratory Rate 21 19 Blood Pressure 111/59 L Pulse Oximetry 96 97 02/12/24 12:00 02/12/24 12:30 02/12/24 12:30 Pulse Rate 81 Respiratory Rate 23 Blood Pressure 116/72 96/68 Pulse Oximetry 94 02/12/24 12:38 02/12/24 12:38 Pulse Rate 76 Respiratory Rate 21 Blood Pressure 115/61 Pulse Oximetry 99 <Dwayne Thomas MD - Last Filed: 02/12/24 19:23> Orders Ordered: Discontinued Medications Chlordiazepoxide HCl (Chlordiazepoxide 25 Mg Capsule) 25 mg PO NOW ONE Stop: 02/11/24 22:42 Last Admin: 02/11/24 22:51 Dose: 25 mg Documented By: JUJU Chlordiazepoxide HCl (Chlordiazepoxide 25 Mg Capsule) 25 mg PO NOW ONE Stop: 02/12/24 05:41 Last Admin: 02/12/24 05:46 Dose: 25 mg Documented By: JUJU Hydroxyzine HCl (Hydroxyzine Hcl 25 Mg Tablet) 50 mg PO NOW ONE Stop: 02/12/24 08:46 Last Admin: 02/12/24 08:52 Dose: 50 mg Documented By: RIDGE Thiamine HCl 100 mg/ Sodium (Chloride) 101 mls @ 404 mls/hr IV NOW ONE Stop: 02/11/24 23:30 Last Infusion: 02/12/24 00:27 Dose: Infused Documented By: Admin: 02/11/24 23:51 Dose: 404 mls/hr Documented By: RUMA Levetiracetam (Levetiracetam 250 Mg Tablet) 500 mg PO NOW ONE Stop: 02/12/24 02:51 Last Admin: 02/12/24 03:00 Dose: 500 mg Documented By: RIDGE(2) Levetiracetam (Levetiracetam 250 Mg Tablet) 500 mg PO NOW ONE Stop: 02/12/24 08:47 Last Admin: 02/12/24 08:52 Dose: 500 mg Documented By: RIDGE Nicotine (Nicotine 14 Patch) 14 mg TOP NOW ONE Stop: 02/12/24 07:28 Last Admin: 02/12/24 07:32 Dose: 14 mg Documented By: PAT Ondansetron HCl (Ondansetron 4 Mg/2 Ml Inj) 4 mg IV NOW ONE Stop: 02/12/24 01:01 Last Admin: 02/12/24 01:06 Dose: 4 mg Documented By: JUJU Ondansetron HCl (Ondansetron 4 Mg/2 Ml Inj) 4 mg IV Q4HR PRN PRN Reason: Nausea And Vomiting Ondansetron HCl (Ondansetron 4 Mg Odt) 4 mg SL NOW ONE Stop: 02/12/24 05:41 Last Admin: 02/12/24 05:46 Dose: 4 mg Documented By: JUJU Vital Signs Vital signs: Vital Signs - 8 hr 02/12/24 11:30 02/12/24 11:30 02/12/24 12:00 Pulse Rate 83 86 Respiratory Rate 21 19 Blood Pressure 111/59 L Pulse Oximetry 96 97 02/12/24 12:00 02/12/24 12:30 02/12/24 12:30 Pulse Rate 81 Respiratory Rate 23 Blood Pressure 116/72 96/68 Pulse Oximetry 94 02/12/24 12:38 02/12/24 12:38 Pulse Rate 76 Respiratory Rate 21 Blood Pressure 115/61 Pulse Oximetry 99 Medical Decision Making <Ricci Jasmine DO - Last Filed: 02/12/24 17:54> Medical Records Medical records reviewed: Yes I reviewed the patient's medical records. Lab Data Lab results reviewed: Yes I reviewed the patient's lab results. 02/11/24 23:20 02/11/24 23:20 Labs: Lab Results 02/11/24 02/11/24 02/12/24 Range/Units 04:37 23:20 00:00 WBC 7.3 (4.5-11.0) X10^3/uL RBC 4.38 (4.0-5.2) X10^6/uL Hgb 14.4 (12.0-16.0) g/dL Hct 42.4 (36-46) % MCV 96.7 (80-100) fL MCH 32.9 (26-34) PG MCHC 34.0 (30-36) % RDW 13.7 (11.6-14.8) % Plt Count 238 (150-400) X10^3/uL Neut % (Auto) 54.4 (50-75) % Lymph % (Auto) 42.3 H (25-40) % [place] % (Auto) 2.3 L (3-14) % Eos % (Auto) 0.2 L (2-4) % Baso % (Auto) 0.8 (0-2) % Neut # (Auto) 4000 (0684-4037) /uL Lymph # (Auto) 3100 (1562-9348) /uL [place] # (Auto) 200 (0-900) /uL Eos # (Auto) 0 (0-450) /uL Baso # (Auto) 100 (0-100) /uL Sodium 144 (137-145) mmol/L Potassium 4.4 (3.4-5.1) mmol/L Chloride 103 (98-107) mmol/L Carbon Dioxide 25 (22-32) mmol/L BUN 17 (7-17) mg/dL Creatinine 0.71 (0.52-1.04) mg/dL Estimated GFR > 60 (>60) mL/min BUN/Creatinine Ratio 23.9 H (6-22) Glucose 142 H (70-100) mg/dL Calcium 9.5 (8.4-10.2) mg/dL Total Bilirubin 0.6 (0.2-1.3) mg/dL AST 52 H (14-36) IU/L ALT 31 (<35) IU/L Alkaline Phosphatase 53 (38-126) U/L Total Protein 10.0 H (6.3-8.2) g/dL Albumin 5.5 H (3.5-5.0) g/dL Globulin 4.5 H (1.7-4.1) g/dL Albumin/Globulin Ratio 1.2 (1.0-2.8) Lipase 183 (23-300) U/L Serum , Qual Cancelled Urine RBC 1-5/hpf (0-5/HPF) Urine WBC None seen (0-5/HPF) Ur Squamous Epith Cells 5-10 /hpf H (0-5/HPF) Urine Bacteria Few (2-10) H (None) Ur Culture Indicated? Cult not indicated Vol Urine Centrifuged 10ml (spun) Urine Test Negative (Negative) U Opiates 300ng/mL cut Negative (Negative) Ur Oxycodone Screen Negative (Negative) Urine Methadone Screen Negative (Negative) Ur Barbiturates Screen Negative (Negative) U Tricyclic Antidepress Negative (Negative) Ur Phencyclidine Scrn Negative (Negative) Ur Amphetamines Screen Negative (Negative) U Methamphetamines Scrn Negative (Negative) Ur MDMA Scrn (Ecstasy) Negative (Negative) U Benzodiazepines Scrn Negative (Negative) Urine Cocaine Screen Negative (Negative) U Marijuana (THC) Screen Negative (Negative) Urine pH Normal (Normal) Urine Specific [place] Normal (Normal) Ethyl Alcohol 301 H ( - 10) mg/dL Ur Creatinine Normal (Normal) SARS-CoV-2 (PCR) Negative (Negative) 02/12/24 02/12/24 Range/Units 02:54 06:15 WBC (4.5-11.0) X10^3/uL RBC (4.0-5.2) X10^6/uL Hgb (12.0-16.0) g/dL Hct (36-46) % MCV (80-100) fL MCH (26-34) PG MCHC (30-36) % RDW (11.6-14.8) % Plt Count (150-400) X10^3/uL Neut % (Auto) (50-75) % Lymph % (Auto) (25-40) % [place] % (Auto) (3-14) % Eos % (Auto) (2-4) % Baso % (Auto) (0-2) % Neut # (Auto) (7835-4916) /uL Lymph # (Auto) (6247-6741) /uL [place] # (Auto) (0-900) /uL Eos # (Auto) (0-450) /uL Baso # (Auto) (0-100) /uL Sodium (137-145) mmol/L Potassium (3.4-5.1) mmol/L Chloride (98-107) mmol/L Carbon Dioxide (22-32) mmol/L BUN (7-17) mg/dL Creatinine (0.52-1.04) mg/dL Estimated GFR (>60) mL/min BUN/Creatinine Ratio (6-22) Glucose (70-100) mg/dL Calcium (8.4-10.2) mg/dL Total Bilirubin (0.2-1.3) mg/dL AST (14-36) IU/L ALT (<35) IU/L Alkaline Phosphatase (38-126) U/L Total Protein (6.3-8.2) g/dL Albumin (3.5-5.0) g/dL Globulin (1.7-4.1) g/dL Albumin/Globulin Ratio (1.0-2.8) Lipase (23-300) U/L Serum , Qual Urine RBC (0-5/HPF) Urine WBC (0-5/HPF) Ur Squamous Epith Cells (0-5/HPF) Urine Bacteria (None) Ur Culture Indicated? Vol Urine Centrifuged Urine Test (Negative) U Opiates 300ng/mL cut (Negative) Ur Oxycodone Screen (Negative) Urine Methadone Screen (Negative) Ur Barbiturates Screen (Negative) U Tricyclic Antidepress (Negative) Ur Phencyclidine Scrn (Negative) Ur Amphetamines Screen (Negative) U Methamphetamines Scrn (Negative) Ur MDMA Scrn (Ecstasy) (Negative) U Benzodiazepines Scrn (Negative) Urine Cocaine Screen (Negative) U Marijuana (THC) Screen (Negative) Urine pH (Normal) Urine Specific [place] (Normal) Ethyl Alcohol 179 H 72 H ( - 10) mg/dL Ur Creatinine (Normal) SARS-CoV-2 (PCR) (Negative) Point of Care Testing Test Results Negative Urine Dip Bedside Urine Glucose Negative Bedside Urine Bilirubin - Negative Bedside Urine Ketone ++ 40 Urine Specific [place] 1.030 Bedside Urine Occult Blood +++ Bedside Urine pH 6.0 Bedside Urine Protein ++ 100 Bedside Urine Urobilinogen - Negative Bedside Urine Nitrite - Negative Bedside Urine Leukocytes - Negative Esterase Point of care testing: Point of Care Testing Test Results Negative Urine Dip Bedside Urine Glucose Negative Bedside Urine Bilirubin - Negative Bedside Urine Ketone ++ 40 Urine Specific [place] 1.030 Bedside Urine Occult Blood +++ Bedside Urine pH 6.0 Bedside Urine Protein ++ 100 Bedside Urine Urobilinogen - Negative Bedside Urine Nitrite - Negative Bedside Urine Leukocytes - Negative Esterase MDM Narrative Medical decision making narrative: Patient is very anxious but is alert and oriented. She was given a dose of her Keppra. She tolerated this without issue. Was also tolerating oral intake. She denied the use of illicit substances. Alcohol level significantly elevated upon arrival which improved with time. She was given 1 dose of Librium secondary to anxiety. Patient is medically cleared. She is interested in detox. Will attempt to find placement. <Dwayne Thomas MD - Last Filed: 02/12/24 19:23> Lab Data Labs: Lab Results 02/11/24 02/11/24 02/12/24 Range/Units 04:37 23:20 00:00 WBC 7.3 (4.5-11.0) X10^3/uL RBC 4.38 (4.0-5.2) X10^6/uL Hgb 14.4 (12.0-16.0) g/dL Hct 42.4 (36-46) % MCV 96.7 (80-100) fL MCH 32.9 (26-34) PG MCHC 34.0 (30-36) % RDW 13.7 (11.6-14.8) % Plt Count 238 (150-400) X10^3/uL Neut % (Auto) 54.4 (50-75) % Lymph % (Auto) 42.3 H (25-40) % [place] % (Auto) 2.3 L (3-14) % Eos % (Auto) 0.2 L (2-4) % Baso % (Auto) 0.8 (0-2) % Neut # (Auto) 4000 (8614-0245) /uL Lymph # (Auto) 3100 (6178-7256) /uL [place] # (Auto) 200 (0-900) /uL Eos # (Auto) 0 (0-450) /uL Baso # (Auto) 100 (0-100) /uL Sodium 144 (137-145) mmol/L Potassium 4.4 (3.4-5.1) mmol/L Chloride 103 (98-107) mmol/L Carbon Dioxide 25 (22-32) mmol/L BUN 17 (7-17) mg/dL Creatinine 0.71 (0.52-1.04) mg/dL Estimated GFR > 60 (>60) mL/min BUN/Creatinine Ratio 23.9 H (6-22) Glucose 142 H (70-100) mg/dL Calcium 9.5 (8.4-10.2) mg/dL Total Bilirubin 0.6 (0.2-1.3) mg/dL AST 52 H (14-36) IU/L ALT 31 (<35) IU/L Alkaline Phosphatase 53 (38-126) U/L Total Protein 10.0 H (6.3-8.2) g/dL Albumin 5.5 H (3.5-5.0) g/dL Globulin 4.5 H (1.7-4.1) g/dL Albumin/Globulin Ratio 1.2 (1.0-2.8) Lipase 183 (23-300) U/L Serum , Qual Cancelled Urine RBC 1-5/hpf (0-5/HPF) Urine WBC None seen (0-5/HPF) Ur Squamous Epith Cells 5-10 /hpf H (0-5/HPF) Urine Bacteria Few (2-10) H (None) Ur Culture Indicated? Cult not indicated Vol Urine Centrifuged 10ml (spun) Urine Test Negative (Negative) U Opiates 300ng/mL cut Negative (Negative) Ur Oxycodone Screen Negative (Negative) Urine Methadone Screen Negative (Negative) Ur Barbiturates Screen Negative (Negative) U Tricyclic Antidepress Negative (Negative) Ur Phencyclidine Scrn Negative (Negative) Ur Amphetamines Screen Negative (Negative) U Methamphetamines Scrn Negative (Negative) Ur MDMA Scrn (Ecstasy) Negative (Negative) U Benzodiazepines Scrn Negative (Negative) Urine Cocaine Screen Negative (Negative) U Marijuana (THC) Screen Negative (Negative) Urine pH Normal (Normal) Urine Specific [place] Normal (Normal) Ethyl Alcohol 301 H ( - 10) mg/dL Ur Creatinine Normal (Normal) SARS-CoV-2 (PCR) Negative (Negative) 02/12/24 02/12/24 Range/Units 02:54 06:15 WBC (4.5-11.0) X10^3/uL RBC (4.0-5.2) X10^6/uL Hgb (12.0-16.0) g/dL Hct (36-46) % MCV (80-100) fL MCH (26-34) PG MCHC (30-36) % RDW (11.6-14.8) % Plt Count (150-400) X10^3/uL Neut % (Auto) (50-75) % Lymph % (Auto) (25-40) % [place] % (Auto) (3-14) % Eos % (Auto) (2-4) % Baso % (Auto) (0-2) % Neut # (Auto) (9505-0485) /uL Lymph # (Auto) (2437-5500) /uL [place] # (Auto) (0-900) /uL Eos # (Auto) (0-450) /uL Baso # (Auto) (0-100) /uL Sodium (137-145) mmol/L Potassium (3.4-5.1) mmol/L Chloride (98-107) mmol/L Carbon Dioxide (22-32) mmol/L BUN (7-17) mg/dL Creatinine (0.52-1.04) mg/dL Estimated GFR (>60) mL/min BUN/Creatinine Ratio (6-22) Glucose (70-100) mg/dL Calcium (8.4-10.2) mg/dL Total Bilirubin (0.2-1.3) mg/dL AST (14-36) IU/L ALT (<35) IU/L Alkaline Phosphatase (38-126) U/L Total Protein (6.3-8.2) g/dL Albumin (3.5-5.0) g/dL Globulin (1.7-4.1) g/dL Albumin/Globulin Ratio (1.0-2.8) Lipase (23-300) U/L Serum , Qual Urine RBC (0-5/HPF) Urine WBC (0-5/HPF) Ur Squamous Epith Cells (0-5/HPF) Urine Bacteria (None) Ur Culture Indicated? Vol Urine Centrifuged Urine Test (Negative) U Opiates 300ng/mL cut (Negative) Ur Oxycodone Screen (Negative) Urine Methadone Screen (Negative) Ur Barbiturates Screen (Negative) U Tricyclic Antidepress (Negative) Ur Phencyclidine Scrn (Negative) Ur Amphetamines Screen (Negative) U Methamphetamines Scrn (Negative) Ur MDMA Scrn (Ecstasy) (Negative) U Benzodiazepines Scrn (Negative) Urine Cocaine Screen (Negative) U Marijuana (THC) Screen (Negative) Urine pH (Normal) Urine Specific [place] (Normal) Ethyl Alcohol 179 H 72 H ( - 10) mg/dL Ur Creatinine (Normal) SARS-CoV-2 (PCR) (Negative) Point of Care Testing Test Results Negative Urine Dip Bedside Urine Glucose Negative Bedside Urine Bilirubin - Negative Bedside Urine Ketone ++ 40 Urine Specific [place] 1.030 Bedside Urine Occult Blood +++ Bedside Urine pH 6.0 Bedside Urine Protein ++ 100 Bedside Urine Urobilinogen - Negative Bedside Urine Nitrite - Negative Bedside Urine Leukocytes - Negative Esterase Point of care testing: Point of Care Testing Test Results Negative Urine Dip Bedside Urine Glucose Negative Bedside Urine Bilirubin - Negative Bedside Urine Ketone ++ 40 Urine Specific [place] 1.030 Bedside Urine Occult Blood +++ Bedside Urine pH 6.0 Bedside Urine Protein ++ 100 Bedside Urine Urobilinogen - Negative Bedside Urine Nitrite - Negative Bedside Urine Leukocytes - Negative Esterase MDM Narrative Medical decision making narrative: Patient is very anxious but is alert and oriented. She was given a dose of her Keppra. She tolerated this without issue. Was also tolerating oral intake. She denied the use of illicit substances. Alcohol level significantly elevated upon arrival which improved with time. She was given 1 dose of Librium secondary to anxiety. Patient is medically cleared. She is interested in detox. Will attempt to find placement. William, 02/12/2024, 0700. Signout from Dr Jasmine. 33-year-old female with history of seizure disorder for which she takes Keppra, also regular drinking of alcohol, requesting detox services, initial blood alcohol level here 301, this morning 79, some withdrawal symptoms last night, given oral dose Librium, good response. Oral dose usual medication Keppra also given. No suicidal ideation or homicidal ideation. Medically cleared, awaiting bed placement. Bed search in progress. Assumed care. 0830, nurse reports patient feels anxious, has taken hydroxyzine in the past, CIWA score currently low, we will give p.o. hydroxyzine 50 mg dose. 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 Bed search continues 1214, patient now we will pursue outpatient detox, we will see provider Srinivas chandler in [place] on . Transportation home via social sciences chair. She has supply of hydroxyzine to use for anxiety as needed. Critical Care Time <Dwayne Thomas MD - Last Filed: 02/12/24 19:23> Critical Care Time Critical Care Time: Yes Total Critical Care Time: 31 Attestation: The high probability of a clinically significant, sudden or life threatening deterioration of the [psychiatric, behavioral] system(s) required my full and direct attention, intervention and personal management. The aggregate critical care time was [31] minutes. This time is in addition to time spent performing reported procedures but includes the following: [x] Data Review and interpretation [x] Patient assessment and monitoring of vital signs [x] Documentation [x] Medication orders and management Discharge Plan Departure Patient Disposition: Home Clinical Impression: Alcoholic intoxication Activity Restrictions/Additional Instructions: Initial request for alcohol detox services, observed overnight for many hours, improved, alcohol metabolized out of system, possible early withdrawal symptoms but no medications required for many hours now, taking hydroxyzine for anxiety, has home supply. Endocrinology Teacher re-consultation this afternoon, decision was made to follow up as an outpatient for now, with Srinivas Chandler in [place], appointment this . Return to this/nearest emergency department for any change worsening symptoms or any concerns prior Prescriptions: No Action gabapentin 400 mg capsule 400 mg PO 3XD naloxone 4 mg/actuation Leon[place],Non-Aerosol 1 spray INTRANASAL Q2M PRN (Reason: Opioid Overdose) Rx Instructions: spray 1 dose into ONE nostril; alternate nostrils w each dose until help arrives lorazepam 1 mg Tablet 1 mg PO Q6HR PRN (Reason: Anxiety) Qty: 30 0RF norgestimate-ethinyl estradiol 0.25-35 mg-mcg tablet 1 tab PO DAILY Qty: 30 0RF clonidine HCl 0.1 mg tablet 0.1 mg PO 3XD PRN (Reason: Anxiety) Qty: 60 0RF trazodone 50 mg Tablet 50 mg PO PRN PRN (Reason: Sleep) Qty: 30 0RF levetiracetam 500 mg tablet 500 mg PO BID Qty: 60 0RF thiamine HCl (vitamin B1) [Vitamin B-1] 100 mg tablet 100 mg PO DAILY Qty: 30 0RF gabapentin 300 mg capsule 300 mg PO 3XD Qty: 90 0RF folic acid 1 mg tablet 1 mg PO DAILY Qty: 30 0RF hydroxyzine HCl 25 mg tablet 25 mg PO 3XD PRN (Reason: anxiety) Qty: 30 0RF fluticasone propionate 50 mcg/actuation [place],Suspension 1 spray INTRANASAL DAILY PRN (Reason: allergies) Qty: 1 0RF Rx Instructions: administer into each nostril buspirone 15 mg tablet 7.5 mg PO BID Qty: 90 0RF cholecalciferol (vitamin D3) [Vitamin D3] 25 mcg (1,000 unit) capsule 25 mcg PO 1XD Qty: 30 0RF Vitamin 27 mg iron- 800 mcg tablet 1 tab PO DAILY Qty: 100 0RF cephalexin 500 mg capsule 500 mg PO Q8H Qty: 10 0RF phenazopyridine [Pyridium] 100 mg tablet 100 mg PO TID PRN (Reason: pain) Qty: 10 0RF sertraline [Zoloft] 100 mg tablet 150 mg PO DAILY Stand Alone Forms: Patient Portal/API
[2024-02-11] MEDS: chlordiazePOXIDE 25 MG CAPSULE PO (22:51)
[2024-02-11 23:00] VITALS: BP 116/75; PULSE 75; RESP 22; O2SAT 100
[2024-02-11 23:30] VITALS: BP 110/79; PULSE 79; RESP 15; O2SAT 100
[2024-02-11 23:47] LABS: Lipase 183 U/L (23-300)
[2024-02-11 23:48] LABS: Alanine Aminotransferase 31 IU/L (<35); Albumin 5.5 g/dL (3.5-5.0); Albumin Globulin Ratio 1.2 (1.0-2.8); Alkaline Phosphatase 53 U/L (38-126); Aspartate Aminotransferase 52 IU/L (14-36); BUN Creatinine Ratio 23.9 (6-22); Bilirubin Total 0.6 mg/dL (0.2-1.3); Blood Urea Nitrogen 17 mg/dL (7-17); Calcium 9.5 mg/dL (8.4-10.2); Carbon Dioxide 25 mmol/L (22-32); Chloride 103 mmol/L (98-107); Estimated Glomerular Filt Rate > 60 mL/min (>60); Globulin 4.5 g/dL (1.7-4.1); Glucose 142 mg/dL (70-100); HEMOLYSIS 48 (0-50); Potassium 4.4 mmol/L (3.4-5.1); Sodium 144 mmol/L (137-145)
[2024-02-11 23:50] LABS: Add Manual Diff / Slide Review NO; Basophils Absolute Auto 100 /uL (0-100); Basophils Percent Auto 0.8 % (0-2); Eosinophils Absolute Auto 0 /uL (0-450); Eosinophils Percent Auto 0.2 % (2-4); Hematocrit 42.4 % (36-46); Hemoglobin 14.4 g/dL (12.0-16.0); Lymphocytes Absolute Auto 3100 /uL (1100-4500); Lymphocytes Percent Auto 42.3 % (25-40); Mean Corpuscular Hemoglobin 32.9 PG (26-34); Mean Corpuscular Volume 96.7 fL (80-100); Monocytes Absolute Auto 200 /uL (0-900); Monocytes Percent Auto 2.3 % (3-14); Neutrophils Absolute Auto 4000 /uL (1500-7000); Neutrophils Percent Auto 54.4 % (50-75); Platelet Count 238 X10^3/uL (150-400); Red Blood Cell Count 4.38 X10^6/uL (4.0-5.2); Red Cell Distribution Width 13.7 % (11.6-14.8); White Blood Cell Count 7.3 X10^3/uL (4.5-11.0)
[2024-02-11] MEDS: THIAMINE 100 MG in SODIUM CHLORIDE 0.9% 100 ML 404 MG IV (23:51)
[2024-02-11 23:53] VITALS: BP 109/84; PULSE 73; RESP 12; O2SAT 93
[2024-02-11 23:54] LABS: Ethanol (ETOH) 301 mg/dL
[2024-02-12] VITALS (34 sets, daily range): BP systolic 88–116; BP diastolic 59–94; PULSE 62–91; RESP 8–32; TEMP 36.8; O2SAT 85–100
[2024-02-12 00:13] LABS: UR Morphine/Opiate cutoff 300 Negative (Negative); Ur Creatinine Normal (Normal); Ur Specific Gravity Normal (Normal); Urine Amphetamines Negative (Negative); Urine Barbiturates Negative (Negative); Urine Benzodiazepines Negative (Negative); Urine Cocaine Negative (Negative); Urine MDMA Negative (Negative); Urine Methadone Negative (Negative); Urine Methamphetamines Negative (Negative); Urine Oxycodone Negative (Negative); Urine Phencyclidine Negative (Negative); Urine Tetrahydrocannabinol Negative (Negative); Urine Tricyclic Antidepressant Negative (Negative); Urine pH Normal (Normal)
[2024-02-12 00:14] LABS: Pregnancy Test Urine Negative (Negative)
[2024-02-12 00:19] LABS: Bacteria Urine Few (2-10); Culture Indicated Urine Cult Not Indicated; RBC Urine 1-5/HPF (0-5/HPF); Squamous Epithelial Cell Urine 5-10 /HPF (0-5/HPF); Urine Volume 10mL (spun); WBC Urine None Seen (0-5/HPF)
[2024-02-12] MEDS: ONDANSETRON 4 MG/2 ML INJ IV (01:06)
[2024-02-12] MEDS: levETIRAcetam 250 MG TABLET 500 MG PO ×2 (03:00→08:52)
[2024-02-12 03:16] LABS: Ethanol (ETOH) 179 mg/dL
[2024-02-12 04:56] LABS: COVID19 -Nasal RAPID Negative (Negative)
[2024-02-12] MEDS: chlordiazePOXIDE 25 MG CAPSULE PO (05:46)
[2024-02-12] MEDS: ONDANSETRON 4 MG ODT SL (05:46)
[2024-02-12 06:47] LABS: Ethanol (ETOH) 72 mg/dL
[2024-02-12] MEDS: NICOTINE 14 PATCH 14 MG TOP (07:32)
--- NOTE | 2024-02-12 08:23 | PC.NURSE ---
ROOF BOLTING COAL MINER Note: Contacted [facility] for status of bed placement at 0810. Advised it was still being reviewed by nurse. They will call back with update.
[2024-02-12] MEDS: hydrOXYzine HCL 25 MG TABLET 50 MG PO (08:52)
--- NOTE | 2024-02-12 09:12 | PC.NURSE ---
BOBBIN COLLECTOR Note: [facility] called back. Unable to accept patient due to seizure history.
--- NOTE | 2024-02-12 10:38 | PC.NURSE ---
[facility] Note: [facility], no beds. Call back after 1200 noon to check. [facility], no beds.
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
== END 2024-02-12 13:00 | disposition home or self-care (01) ==
PROVIDERS: Emergency Medicine; Emergency Provider Emergency Medicine
DX: F10.129 Alcohol abuse with intoxication, unspecified (principal); Y90.8 Blood alcohol level of 240 mg/100 ml or more; Z20.822 Contact with and (suspected) exposure to COVID-19
CPT/HCPCS: 36415; 80053; 80305; 80320; 81003; 81015; 81025; 83690; 85025; 87635; 96361; 96374; 99284; A9270; J2405

== ENCOUNTER 2024-05-11 01:29 | Emergency (ER) | payer OTHER, MEDICAID, SELFPAY ==
[2023-11-28 19:25] VITALS: BMI 21.2
[2024-05-11] VITALS (34 sets, daily range): BP systolic 111–140; BP diastolic 68–89; PULSE 71–100; RESP 9–21; TEMP 36.9; O2SAT 92–100; BMI 18.8
--- NOTE | 2024-05-11 01:56 | ED_ITS ---
HPI - General Adult <Ricci Jasmine DO - Last Filed: 05/19/24 07:02> General Chief complaint: Toxicology Problem Stated complaint: etoh withdrawal Time Seen by Provider: 05/11/24 01:38 Source: patient Mode of arrival: EMS History of Present Illness HPI narrative: Patient is a 34-year-old female who is here for evaluation of alcohol withdrawal. She was had a significant alcohol history in the past. Has been to detox/rehab multiple times in the past as well. She states that recently she has been sober however when she went on a trip and then relapsed. She has been drinking consistently over the past 5-7 days. Her last drink was within 12 hours of coming here in the emergency department. She has had alcohol withdrawal seizures in the past. She was here stating that she was withdrawing from alcohol. She states she was nauseous, shaking, ?hallucinating?, she denies fevers. Arrived by EMS. Related Data Home Medications Medication Instructions Recorded Confirmed gabapentin 400 mg capsule 400 mg PO 3XD 11/29/23 11/30/23 naloxone 4 mg/actuation nasal spray 1 spray intranasal Q2M PRN Opioid 12/01/23 12/01/23 Overdose sertraline 100 mg tablet (Zoloft) 150 mg PO DAILY 01/04/24 05/11/24 WesTab Plus 330 tab PO 1XD 05/11/24 05/11/24 acamprosate 1 tab PO 3XD 05/11/24 05/11/24 Previous Rx's Medication Instructions Recorded buspirone 15 mg tablet 7.5 mg (1/2 x 15 mg) PO BID #90 12/08/23 tabs cholecalciferol (vitamin D3) 25 25 mcg PO 1XD #30 caps 12/08/23 mcg (1,000 unit) capsule (Vitamin D3) clonidine HCl 0.1 mg tablet 0.1 mg PO 3XD PRN Anxiety #60 tabs 12/08/23 fluticasone propionate 50 1 spray intranasal DAILY PRN 12/08/23 mcg/actuation nasal allergies #1 g spray,suspension folic acid 1 mg tablet 1 mg PO DAILY #30 tabs 12/08/23 gabapentin 300 mg capsule 300 mg PO 3XD #90 caps 12/08/23 hydroxyzine HCl 25 mg tablet 25 mg PO 3XD PRN anxiety #30 tabs 12/08/23 levetiracetam 500 mg tablet 500 mg PO BID #60 tabs 12/08/23 lorazepam 1 mg tablet 1 mg PO Q6HR PRN Anxiety #30 tabs 12/08/23 norgestimate 0.25 mg-ethinyl 1 tab PO DAILY #30 tabs 12/08/23 estradiol 35 mcg tablet phenazopyridine 100 mg tablet 100 mg PO TID PRN pain #10 tabs 12/08/23 (Pyridium) vits no.130-ferrous fum 1 tab PO DAILY #100 tabs 12/08/23 27 mg iron-folic acid 800 mcg tablet ( Vitamin) thiamine HCl (vitamin B1) 100 mg 100 mg PO DAILY #30 tabs 12/08/23 tablet (Vitamin B-1) trazodone 50 mg tablet 50 mg PO PRN PRN Sleep #30 tabs 12/08/23 Allergies Allergy/AdvReac Type Severity Reaction Status Date / Time No Known Drug Allergies Allergy Verified 11/28/23 15:18 Review of Systems <Ricci Jasmine DO - Last Filed: 05/19/24 07:02> Review of Systems ROS Unobtainable: All systems reviewed & are unremarkable except as noted in HPI and below Patient History <Ricci Jasmine DO - Last Filed: 05/19/24 07:02> Medical History Alcohol use disorder Social History household members: family Smoking Status: Current every day smoker alcohol intake: current Smoking Status: Current every day smoker tobacco type: vaping alcohol intake frequency: 3 or more drinks per day Alcohol type: hard liquor Substance Use Type: does not use Exam <Ricci Jasmine DO - Last Filed: 05/19/24 07:02> Initial Vital Signs Initial Vital Signs: Vital Signs Pulse Rate 84 05/11/24 01:32 Blood Pressure 123/83 05/11/24 01:32 Pulse Oximetry 97 05/11/24 01:32 Const General: cooperative, No in distress, disheveled and No ill appearing HENMT Head: normal to inspection and normocephalic Resp Effort & Inspection: normal respiratory effort Auscultation: clear to auscultation bilaterally Cardio Rate: regular rate Rhythm: regular rhythm Skin General: no rashes or lesions noted Neuro General: patient alert, patient awake, patient oriented x3 and moves all extremities Speech: speech normal Extrem Other: No gross deformities Psych Other: Appears to be anxious, in his disheveled. <Marcella C DO Prave[place] - Last Filed: 05/11/24 18:14> Initial Vital Signs Initial Vital Signs: Vital Signs Pulse Rate 84 05/11/24 01:32 Blood Pressure 123/83 05/11/24 01:32 Pulse Oximetry 97 05/11/24 01:32 Course <Ricci DO [place] - Last Filed: 05/19/24 07:02> Orders Ordered: Discontinued Medications Acetaminophen (Acetaminophen 325 Mg Tablet) 650 mg PO NOW ONE Stop: 05/11/24 04:07 Last Admin: 05/11/24 04:10 Dose: 650 mg Documented By: YUNI Acetaminophen (Acetaminophen 325 Mg Tablet) 650 mg PO NOW ONE Stop: 05/11/24 08:15 Last Admin: 05/11/24 09:02 Dose: 650 mg Documented By: LETTY Buspirone HCl (Buspirone 5 Mg Tablet) 15 mg PO NOW ONE Stop: 05/11/24 08:15 Last Admin: 05/11/24 09:05 Dose: 15 mg Documented By: LETTY Chlordiazepoxide HCl (Chlordiazepoxide 25 Mg Capsule) 50 mg PO NOW ONE Stop: 05/11/24 08:16 Last Admin: 05/11/24 09:03 Dose: 50 mg Documented By: LETTY Gabapentin (Gabapentin 300 Mg Capsule) 300 mg PO NOW ONE Stop: 05/11/24 08:15 Last Admin: 05/11/24 09:04 Dose: 300 mg Documented By: LETTY Sodium Chloride (Normal Saline 0.9%) 1,000 mls @ 1,000 mls/hr IV BOLUS ONE Stop: 05/11/24 02:37 Last Infusion: 05/11/24 03:13 Dose: Infused Documented By: Admin: 05/11/24 02:14 Dose: 1,000 mls/hr Documented By: YUNI Thiamine HCl 100 mg/ Sodium (Chloride) 101 mls @ 404 mls/hr IV NOW ONE Stop: 05/11/24 01:39 Last Infusion: 05/11/24 02:30 Dose: Infused Documented By: Admin: 05/11/24 02:15 Dose: 404 mls/hr Documented By: YUNI Sodium Chloride (Normal Saline 0.9%) 1,000 mls @ 1,000 mls/hr IV BOLUS ONE Stop: 05/11/24 02:56 Last Infusion: 05/11/24 04:14 Dose: Infused Documented By: Admin: 05/11/24 03:14 Dose: 1,000 mls/hr Documented By: YUNI Levetiracetam (Levetiracetam 250 Mg Tablet) 500 mg PO NOW ONE Stop: 05/11/24 08:15 Last Admin: 05/11/24 09:04 Dose: 500 mg Documented By: LETTY Ondansetron HCl (Ondansetron 4 Mg/2 Ml Inj) 4 mg IV NOW ONE Stop: 05/11/24 01:58 Last Admin: 05/11/24 02:15 Dose: 4 mg Documented By: YUNI Ondansetron HCl (Ondansetron 4 Mg/2 Ml Inj) 4 mg IV NOW ONE Stop: 05/11/24 06:33 Last Admin: 05/11/24 06:48 Dose: 4 mg Documented By: YUNI Phenobarbital (Phenobarbital 65 Mg/Ml Vial) 260 mg IV NOW ONE Stop: 05/11/24 01:39 Last Admin: 05/11/24 02:16 Dose: 260 mg Documented By: YUNI Sertraline HCl (Sertraline 50 Mg Tablet) 150 mg PO NOW ONE Stop: 05/11/24 08:15 Last Admin: 05/11/24 09:05 Dose: 150 mg Documented By: LETTY Vital Signs Vital signs: Vital Signs - 8 hr 05/11/24 10:30 05/11/24 10:30 05/11/24 10:41 Pulse Rate 89 Respiratory Rate 9 L Blood Pressure 130/73 140/81 Pulse Oximetry Oxygen Delivery Method 05/11/24 10:41 05/11/24 11:00 05/11/24 11:00 Pulse Rate 86 82 Respiratory Rate 16 11 L Blood Pressure 120/78 Pulse Oximetry 96 99 Oxygen Delivery Method Room Air 05/11/24 11:30 05/11/24 11:30 05/11/24 12:00 Pulse Rate 82 Respiratory Rate 15 Blood Pressure 111/73 118/84 Pulse Oximetry Oxygen Delivery Method 05/11/24 12:00 05/11/24 12:30 05/11/24 12:30 Pulse Rate 76 76 Respiratory Rate 12 16 Blood Pressure 126/89 Pulse Oximetry Oxygen Delivery Method 05/11/24 12:51 05/11/24 12:51 05/11/24 13:00 Pulse Rate 74 76 Respiratory Rate 14 Blood Pressure 121/84 Pulse Oximetry 95 96 Oxygen Delivery Method 05/11/24 13:01 05/11/24 13:01 05/11/24 13:30 Pulse Rate 75 Respiratory Rate 14 Blood Pressure 125/85 128/82 Pulse Oximetry 97 Oxygen Delivery Method 05/11/24 13:30 05/11/24 14:00 05/11/24 14:00 Pulse Rate 78 71 Respiratory Rate 12 15 Blood Pressure 118/80 Pulse Oximetry 99 98 Oxygen Delivery Method 05/11/24 14:30 05/11/24 14:30 05/11/24 15:48 Pulse Rate 72 77 Respiratory Rate 15 18 Blood Pressure 117/85 Pulse Oximetry 97 97 Oxygen Delivery Method Room Air <Marcella Grissom, - Last Filed: 05/11/24 18:14> Orders Ordered: Discontinued Medications Acetaminophen (Acetaminophen 325 Mg Tablet) 650 mg PO NOW ONE Stop: 05/11/24 04:07 Last Admin: 05/11/24 04:10 Dose: 650 mg Documented By: YUNI Acetaminophen (Acetaminophen 325 Mg Tablet) 650 mg PO NOW ONE Stop: 05/11/24 08:15 Last Admin: 05/11/24 09:02 Dose: 650 mg Documented By: LETTY Buspirone HCl (Buspirone 5 Mg Tablet) 15 mg PO NOW ONE Stop: 05/11/24 08:15 Last Admin: 05/11/24 09:05 Dose: 15 mg Documented By: LETTY Chlordiazepoxide HCl (Chlordiazepoxide 25 Mg Capsule) 50 mg PO NOW ONE Stop: 05/11/24 08:16 Last Admin: 05/11/24 09:03 Dose: 50 mg Documented By: LETTY Gabapentin (Gabapentin 300 Mg Capsule) 300 mg PO NOW ONE Stop: 05/11/24 08:15 Last Admin: 05/11/24 09:04 Dose: 300 mg Documented By: LETTY Sodium Chloride (Normal Saline 0.9%) 1,000 mls @ 1,000 mls/hr IV BOLUS ONE Stop: 05/11/24 02:37 Last Infusion: 05/11/24 03:13 Dose: Infused Documented By: Admin: 05/11/24 02:14 Dose: 1,000 mls/hr Documented By: YUNI Thiamine HCl 100 mg/ Sodium (Chloride) 101 mls @ 404 mls/hr IV NOW ONE Stop: 05/11/24 01:39 Last Infusion: 05/11/24 02:30 Dose: Infused Documented By: Admin: 05/11/24 02:15 Dose: 404 mls/hr Documented By: YUNI Sodium Chloride (Normal Saline 0.9%) 1,000 mls @ 1,000 mls/hr IV BOLUS ONE Stop: 05/11/24 02:56 Last Infusion: 05/11/24 04:14 Dose: Infused Documented By: Admin: 05/11/24 03:14 Dose: 1,000 mls/hr Documented By: YUNI Levetiracetam (Levetiracetam 250 Mg Tablet) 500 mg PO NOW ONE Stop: 05/11/24 08:15 Last Admin: 05/11/24 09:04 Dose: 500 mg Documented By: LETTY Ondansetron HCl (Ondansetron 4 Mg/2 Ml Inj) 4 mg IV NOW ONE Stop: 05/11/24 01:58 Last Admin: 05/11/24 02:15 Dose: 4 mg Documented By: YUNI Ondansetron HCl (Ondansetron 4 Mg/2 Ml Inj) 4 mg IV NOW ONE Stop: 05/11/24 06:33 Last Admin: 05/11/24 06:48 Dose: 4 mg Documented By: YUNI Phenobarbital (Phenobarbital 65 Mg/Ml Vial) 260 mg IV NOW ONE Stop: 05/11/24 01:39 Last Admin: 05/11/24 02:16 Dose: 260 mg Documented By: YUNI Sertraline HCl (Sertraline 50 Mg Tablet) 150 mg PO NOW ONE Stop: 05/11/24 08:15 Last Admin: 05/11/24 09:05 Dose: 150 mg Documented By: LETTY Vital Signs Vital signs: Vital Signs - 8 hr 05/11/24 10:30 05/11/24 10:30 05/11/24 10:41 Pulse Rate 89 Respiratory Rate 9 L Blood Pressure 130/73 140/81 Pulse Oximetry Oxygen Delivery Method 05/11/24 10:41 05/11/24 11:00 05/11/24 11:00 Pulse Rate 86 82 Respiratory Rate 16 11 L Blood Pressure 120/78 Pulse Oximetry 96 99 Oxygen Delivery Method Room Air 05/11/24 11:30 05/11/24 11:30 05/11/24 12:00 Pulse Rate 82 Respiratory Rate 15 Blood Pressure 111/73 118/84 Pulse Oximetry Oxygen Delivery Method 05/11/24 12:00 05/11/24 12:30 05/11/24 12:30 Pulse Rate 76 76 Respiratory Rate 12 16 Blood Pressure 126/89 Pulse Oximetry Oxygen Delivery Method 05/11/24 12:51 05/11/24 12:51 05/11/24 13:00 Pulse Rate 74 76 Respiratory Rate 14 Blood Pressure 121/84 Pulse Oximetry 95 96 Oxygen Delivery Method 05/11/24 13:01 05/11/24 13:01 05/11/24 13:30 Pulse Rate 75 Respiratory Rate 14 Blood Pressure 125/85 128/82 Pulse Oximetry 97 Oxygen Delivery Method 05/11/24 13:30 05/11/24 14:00 05/11/24 14:00 Pulse Rate 78 71 Respiratory Rate 12 15 Blood Pressure 118/80 Pulse Oximetry 99 98 Oxygen Delivery Method 05/11/24 14:30 05/11/24 14:30 05/11/24 15:48 Pulse Rate 72 77 Respiratory Rate 15 18 Blood Pressure 117/85 Pulse Oximetry 97 97 Oxygen Delivery Method Room Air Medical Decision Making <Ricci Jasmine, DO - Last Filed: 05/19/24 07:02> Medical Records Medical records reviewed: Yes I reviewed the patient's medical records. Lab Data Lab results reviewed: Yes I reviewed the patient's lab results. 05/11/24 03:25 05/11/24 03:25 Labs: Lab Results 05/11/24 05/11/24 05/11/24 Range/Units 03:25 04:20 04:20 WBC 4.2 L (4.5-11.0) X10^3/uL RBC 3.43 L (4.0-5.2) X10^6/uL Hgb 10.9 L (12.0-16.0) g/dL Hct 32.2 L (36-46) % MCV 93.9 (80-100) fL MCH 31.8 (26-34) PG MCHC 33.9 (30-36) % RDW 14.5 (11.6-14.8) % Plt Count 177 (150-400) X10^3/uL Neut % (Auto) 65.8 (50-75) % Lymph % (Auto) 27.8 (25-40) % [place] % (Auto) 5.8 (3-14) % Eos % (Auto) 0.1 L (2-4) % Baso % (Auto) 0.5 (0-2) % Neut # (Auto) 2700 (4896-0901) /uL Lymph # (Auto) 1200 (3394-3898) /uL [place] # (Auto) 200 (0-900) /uL Eos # (Auto) 0 (0-450) /uL Baso # (Auto) 0 (0-100) /uL Sodium 137 (137-145) mmol/L Potassium 4.2 (3.4-5.1) mmol/L Chloride 100 (98-107) mmol/L Carbon Dioxide 24 (22-32) mmol/L BUN 15 (7-17) mg/dL Creatinine 0.62 (0.52-1.04) mg/dL Estimated GFR > 60 (>60) mL/min BUN/Creatinine Ratio 24.2 H (6-22) Glucose 117 H (70-100) mg/dL Calcium 7.5 L (8.4-10.2) mg/dL Total Bilirubin 0.5 (0.2-1.3) mg/dL AST 129 H (14-36) IU/L ALT 76 H (<35) IU/L Alkaline Phosphatase 53 (38-126) U/L Total Protein 6.9 (6.3-8.2) g/dL Albumin 4.3 (3.5-5.0) g/dL Globulin 2.6 (1.7-4.1) g/dL Albumin/Globulin Ratio 1.7 (1.0-2.8) Lipase 230 (23-300) U/L Serum , Qual Negative (Negative) Urine Color Yellow Urine Appearance Clear Urine pH 6.5 Normal (4.5-8.0) Ur Specific Arnett >=1.030 H (1.000-1.035) Urine Protein 3+ H (Negative) Urine Glucose (UA) Negative (Negative) g/dL Urine Ketones 1+ H (NEGATIVE) Urine Occult Blood Trace-intact (Negative) Urine Nitrate Negative (Negative) Urine Bilirubin Negative (NEGATIVE) Urine Urobilinogen 1.0 (0.2) E.U./dL Ur Leukocyte Esterase Negative (NEGATIVE) Urine RBC 0-1/hpf (0-5/HPF) Urine WBC 5-10/hpf H (0-5/HPF) Ur Squamous Epith Cells 10-30 /hpf H (0-5/HPF) Urine Bacteria Many (>30) H (None) Urine Mucus 2+ H (Negative) Ur Culture Indicated? Specimen cultured Vol Urine Centrifuged 10ml (spun) U Opiates 300ng/mL cut Negative (Negative) Ur Oxycodone Screen Negative (Negative) Urine Methadone Screen Negative (Negative) Ur Barbiturates Screen Negative (Negative) U Tricyclic Antidepress Negative (Negative) Ur Phencyclidine Scrn Negative (Negative) Ur Amphetamines Screen Negative (Negative) U Methamphetamines Scrn Negative (Negative) Ur MDMA Scrn (Ecstasy) Negative (Negative) U Benzodiazepines Scrn Negative (Negative) Urine Cocaine Screen Negative (Negative) U Marijuana (THC) Screen Negative (Negative) Urine Specific [place] Normal (Normal) Ethyl Alcohol 212 H ( - 10) mg/dL Ur Creatinine Normal (Normal) 05/11/24 Range/Units 08:48 WBC (4.5-11.0) X10^3/uL RBC (4.0-5.2) X10^6/uL Hgb (12.0-16.0) g/dL Hct (36-46) % MCV (80-100) fL MCH (26-34) PG MCHC (30-36) % RDW (11.6-14.8) % Plt Count (150-400) X10^3/uL Neut % (Auto) (50-75) % Lymph % (Auto) (25-40) % [place] % (Auto) (3-14) % Eos % (Auto) (2-4) % Baso % (Auto) (0-2) % Neut # (Auto) (6314-5648) /uL Lymph # (Auto) (3952-0569) /uL [place] # (Auto) (0-900) /uL Eos # (Auto) (0-450) /uL Baso # (Auto) (0-100) /uL Sodium (137-145) mmol/L Potassium (3.4-5.1) mmol/L Chloride (98-107) mmol/L Carbon Dioxide (22-32) mmol/L BUN (7-17) mg/dL Creatinine (0.52-1.04) mg/dL Estimated GFR (>60) mL/min BUN/Creatinine Ratio (6-22) Glucose (70-100) mg/dL Calcium (8.4-10.2) mg/dL Total Bilirubin (0.2-1.3) mg/dL AST (14-36) IU/L ALT (<35) IU/L Alkaline Phosphatase (38-126) U/L Total Protein (6.3-8.2) g/dL Albumin (3.5-5.0) g/dL Globulin (1.7-4.1) g/dL Albumin/Globulin Ratio (1.0-2.8) Lipase (23-300) U/L Serum , Qual (Negative) Urine Color Yellow Urine Appearance Clear Urine pH 6.5 (4.5-8.0) Ur Specific Arnett 1.020 (1.000-1.035) Urine Protein 2+ H (Negative) Urine Glucose (UA) 1+ H (Negative) g/dL Urine Ketones 1+ H (NEGATIVE) Urine Occult Blood Negative (Negative) Urine Nitrate Negative (Negative) Urine Bilirubin Negative (NEGATIVE) Urine Urobilinogen 1.0 (0.2) E.U./dL Ur Leukocyte Esterase Negative (NEGATIVE) Urine RBC None seen (0-5/HPF) Urine WBC 1-5/hpf (0-5/HPF) Ur Squamous Epith Cells 10-30 /hpf H (0-5/HPF) Urine Bacteria Few (2-10) H D (None) Urine Mucus (Negative) Ur Culture Indicated? Specimen cultured Vol Urine Centrifuged 10ml (spun) U Opiates 300ng/mL cut (Negative) Ur Oxycodone Screen (Negative) Urine Methadone Screen (Negative) Ur Barbiturates Screen (Negative) U Tricyclic Antidepress (Negative) Ur Phencyclidine Scrn (Negative) Ur Amphetamines Screen (Negative) U Methamphetamines Scrn (Negative) Ur MDMA Scrn (Ecstasy) (Negative) U Benzodiazepines Scrn (Negative) Urine Cocaine Screen (Negative) U Marijuana (THC) Screen (Negative) Urine Specific [place]nett (Normal) Ethyl Alcohol ( - 10) mg/dL Ur Creatinine (Normal) Point of Care Testing Glucose POC 122 Point of care testing: Point of Care Testing Glucose POC 122 MDM Narrative Medical decision making narrative: Patient is medically cleared. She does have an alcohol level that is greater than 200. Upon arrival patient was given fluids. She was tolerating oral intake. She was not vomiting. Was given phenobarbital to help with any potential symptoms. UDS is negative. We will attempt to contact detox facilities. Care turned over to day ED provider to follow up until disposition. <Marcella Grissom, DO - Last Filed: 05/11/24 18:14> Lab Data Labs: Lab Results 05/11/24 05/11/24 05/11/24 Range/Units 03:25 04:20 04:20 WBC 4.2 L (4.5-11.0) X10^3/uL RBC 3.43 L (4.0-5.2) X10^6/uL Hgb 10.9 L (12.0-16.0) g/dL Hct 32.2 L (36-46) % MCV 93.9 (80-100) fL MCH 31.8 (26-34) PG MCHC 33.9 (30-36) % RDW 14.5 (11.6-14.8) % Plt Count 177 (150-400) X10^3/uL Neut % (Auto) 65.8 (50-75) % Lymph % (Auto) 27.8 (25-40) % [place] % (Auto) 5.8 (3-14) % Eos % (Auto) 0.1 L (2-4) % Baso % (Auto) 0.5 (0-2) % Neut # (Auto) 2700 (1261-3367) /uL Lymph # (Auto) 1200 (0774-9615) /uL [place] # (Auto) 200 (0-900) /uL Eos # (Auto) 0 (0-450) /uL Baso # (Auto) 0 (0-100) /uL Sodium 137 (137-145) mmol/L Potassium 4.2 (3.4-5.1) mmol/L Chloride 100 (98-107) mmol/L Carbon Dioxide 24 (22-32) mmol/L BUN 15 (7-17) mg/dL Creatinine 0.62 (0.52-1.04) mg/dL Estimated GFR > 60 (>60) mL/min BUN/Creatinine Ratio 24.2 H (6-22) Glucose 117 H (70-100) mg/dL Calcium 7.5 L (8.4-10.2) mg/dL Total Bilirubin 0.5 (0.2-1.3) mg/dL AST 129 H (14-36) IU/L ALT 76 H (<35) IU/L Alkaline Phosphatase 53 (38-126) U/L Total Protein 6.9 (6.3-8.2) g/dL Albumin 4.3 (3.5-5.0) g/dL Globulin 2.6 (1.7-4.1) g/dL Albumin/Globulin Ratio 1.7 (1.0-2.8) Lipase 230 (23-300) U/L Serum , Qual Negative (Negative) Urine Color Yellow Urine Appearance Clear Urine pH 6.5 Normal (4.5-8.0) Ur Specific [place] >=1.030 H (1.000-1.035) Urine Protein 3+ H (Negative) Urine Glucose (UA) Negative (Negative) g/dL Urine Ketones 1+ H (NEGATIVE) Urine Occult Blood Trace-intact (Negative) Urine Nitrate Negative (Negative) Urine Bilirubin Negative (NEGATIVE) Urine Urobilinogen 1.0 (0.2) E.U./dL Ur Leukocyte Esterase Negative (NEGATIVE) Urine RBC 0-1/hpf (0-5/HPF) Urine WBC 5-10/hpf H (0-5/HPF) Ur Squamous Epith Cells 10-30 /hpf H (0-5/HPF) Urine Bacteria Many (>30) H (None) Urine Mucus 2+ H (Negative) Ur Culture Indicated? Specimen cultured Vol Urine Centrifuged 10ml (spun) U Opiates 300ng/mL cut Negative (Negative) Ur Oxycodone Screen Negative (Negative) Urine Methadone Screen Negative (Negative) Ur Barbiturates Screen Negative (Negative) U Tricyclic Antidepress Negative (Negative) Ur Phencyclidine Scrn Negative (Negative) Ur Amphetamines Screen Negative (Negative) U Methamphetamines Scrn Negative (Negative) Ur MDMA Scrn (Ecstasy) Negative (Negative) U Benzodiazepines Scrn Negative (Negative) Urine Cocaine Screen Negative (Negative) U Marijuana (THC) Screen Negative (Negative) Urine Specific [place] Normal (Normal) Ethyl Alcohol 212 H ( - 10) mg/dL Ur Creatinine Normal (Normal) 05/11/24 Range/Units 08:48 WBC (4.5-11.0) X10^3/uL RBC (4.0-5.2) X10^6/uL Hgb (12.0-16.0) g/dL Hct (36-46) % MCV (80-100) fL MCH (26-34) PG MCHC (30-36) % RDW (11.6-14.8) % Plt Count (150-400) X10^3/uL Neut % (Auto) (50-75) % Lymph % (Auto) (25-40) % [place] % (Auto) (3-14) % Eos % (Auto) (2-4) % Baso % (Auto) (0-2) % Neut # (Auto) (4873-4253) /uL Lymph # (Auto) (9409-4284) /uL [place] # (Auto) (0-900) /uL Eos # (Auto) (0-450) /uL Baso # (Auto) (0-100) /uL Sodium (137-145) mmol/L Potassium (3.4-5.1) mmol/L Chloride (98-107) mmol/L Carbon Dioxide (22-32) mmol/L BUN (7-17) mg/dL Creatinine (0.52-1.04) mg/dL Estimated GFR (>60) mL/min BUN/Creatinine Ratio (6-22) Glucose (70-100) mg/dL Calcium (8.4-10.2) mg/dL Total Bilirubin (0.2-1.3) mg/dL AST (14-36) IU/L ALT (<35) IU/L Alkaline Phosphatase (38-126) U/L Total Protein (6.3-8.2) g/dL Albumin (3.5-5.0) g/dL Globulin (1.7-4.1) g/dL Albumin/Globulin Ratio (1.0-2.8) Lipase (23-300) U/L Serum , Qual (Negative) Urine Color Yellow Urine Appearance Clear Urine pH 6.5 (4.5-8.0) Ur Specific Arnett 1.020 (1.000-1.035) Urine Protein 2+ H (Negative) Urine Glucose (UA) 1+ H (Negative) g/dL Urine Ketones 1+ H (NEGATIVE) Urine Occult Blood Negative (Negative) Urine Nitrate Negative (Negative) Urine Bilirubin Negative (NEGATIVE) Urine Urobilinogen 1.0 (0.2) E.U./dL Ur Leukocyte Esterase Negative (NEGATIVE) Urine RBC None seen (0-5/HPF) Urine WBC 1-5/hpf (0-5/HPF) Ur Squamous Epith Cells 10-30 /hpf H (0-5/HPF) Urine Bacteria Few (2-10) H D (None) Urine Mucus (Negative) Ur Culture Indicated? Specimen cultured Vol Urine Centrifuged 10ml (spun) U Opiates 300ng/mL cut (Negative) Ur Oxycodone Screen (Negative) Urine Methadone Screen (Negative) Ur Barbiturates Screen (Negative) U Tricyclic Antidepress (Negative) Ur Phencyclidine Scrn (Negative) Ur Amphetamines Screen (Negative) U Methamphetamines Scrn (Negative) Ur MDMA Scrn (Ecstasy) (Negative) U Benzodiazepines Scrn (Negative) Urine Cocaine Screen (Negative) U Marijuana (THC) Screen (Negative) Urine Specific Arnett (Normal) Ethyl Alcohol ( - 10) mg/dL Ur Creatinine (Normal) Point of Care Testing Glucose POC 122 Point of care testing: Point of Care Testing Glucose POC 122 ECG Data Attestation: I personally reviewed and interpreted this ECG as follows: Interpretation: Sinus rhythm rate 85 CO 150 QRS of 90 QTC 478, no acute ST changes. [facility] Narrative Medical decision making narrative: Patient is medically cleared. She does have an alcohol level that is greater than 200. Upon arrival patient was given fluids. She was tolerating oral intake. She was not vomiting. Was given phenobarbital to help with any potential symptoms. UDS is negative. We will attempt to contact detox facilities. Care turned over to day ED provider to follow up until disposition. 05/11/2024 Dr. Grissom: Patient signed out to myself. Patient has been in contact with [facility] and awaiting potential bed. Patient received phenobarb, thiamine, fluids, Zofran and Tylenol. Labs were reviewed leukopenia consistent with priors, has hemoglobin of 10 platelets of 177. Electrolytes are appropriate glucose is 117 calcium 7.5 AST is 129 with an ALT of 76. Lipase of 230. Serum is negative. UA showed 5-10 white cells but also 10-30 squamous many bacteria was sent for culture. U tox is negative, ETOH is 212. Patient was seen and evaluated by myself, she is feeling little bit shaky but she states improved. No hallucinations, some nausea, describes headache. She is interested in trying to eat some breakfast. She did have an oral consultation with John. We will order her morning medications which include Keppra, sertraline, buspirone and gabapentin. Patient states she no longer takes clonidine, she has not been taking her acomprosate. Discussed she is still interested in going to inpatient detox is available. Patient was given a dose of Librium orally as she was still having some symptoms. [facility] states cannot take patient. Calls out to other facilities. Patient's seems a little bit altered this maybe secondary to home medications with the addition of Librium on board with the phenobarbital given shortly before. Patient's vitals have not changed significantly. Patient continued to be monitored has not improved. No seizure activity appreciated, patient's has been directly visualized during this. She has been eating and drinking ambulating in the department without any issue. Patient continues to be improved and CIWA has continued to decrease. Calls to several facilities either no beds available or can not accept the patient. Patient has not noted on intake with facility she can not walk but she has been able to do so here in the department. She does use a cane or walker at times secondary to her chronic neuropathy at home. Discussed with patient at this time I do not feel she meets any criteria for inpatient admission. We will discharge patient home. She has had contact with the [facility] in clinic and states she can follow up group. Was given options to meet with social service manager again about outpatient choices. Discharge Plan Departure Patient Disposition: Home Clinical Impression: Alcohol withdrawal syndrome Activity Restrictions/Additional Instructions: I would recommend follow up with [facility] for treatment for your alcohol abuse. There are other options available if this 1 does not work well for you. Please return for new or concerning changes, any seizure activity, altered mental status, persistent vomiting, difficulty with breathing or other new or concerning changes. Prescriptions: No Action gabapentin 400 mg capsule 400 mg PO 3XD naloxone 4 mg/actuation [place],Non-Aerosol 1 spray INTRANASAL Q2M PRN (Reason: Opioid Overdose) Rx Instructions: spray 1 dose into ONE nostril; alternate nostrils w each dose until help arrives lorazepam 1 mg Tablet 1 mg PO Q6HR PRN (Reason: Anxiety) Qty: 30 0RF norgestimate-ethinyl estradiol 0.25-35 mg-mcg tablet 1 tab PO DAILY Qty: 30 0RF clonidine HCl 0.1 mg tablet 0.1 mg PO 3XD PRN (Reason: Anxiety) Qty: 60 0RF trazodone 50 mg Tablet 50 mg PO PRN PRN (Reason: Sleep) Qty: 30 0RF levetiracetam 500 mg tablet 500 mg PO BID Qty: 60 0RF thiamine HCl (vitamin B1) [Vitamin B-1] 100 mg tablet 100 mg PO DAILY Qty: 30 0RF gabapentin 300 mg capsule 300 mg PO 3XD Qty: 90 0RF folic acid 1 mg tablet 1 mg PO DAILY Qty: 30 0RF hydroxyzine HCl 25 mg tablet 25 mg PO 3XD PRN (Reason: anxiety) Qty: 30 0RF fluticasone propionate 50 mcg/actuation [place],Suspension 1 spray INTRANASAL DAILY PRN (Reason: allergies) Qty: 1 0RF Rx Instructions: administer into each nostril buspirone 15 mg tablet 7.5 mg PO BID Qty: 90 0RF cholecalciferol (vitamin D3) [Vitamin D3] 25 mcg (1,000 unit) capsule 25 mcg PO 1XD Qty: 30 0RF Vitamin 27 mg iron- 800 mcg tablet 1 tab PO DAILY Qty: 100 0RF phenazopyridine [Pyridium] 100 mg tablet 100 mg PO TID PRN (Reason: pain) Qty: 10 0RF acamprosate tablet 1 tab PO 3XD WesTab Plus tablet 330 tab PO 1XD sertraline [Zoloft] 100 mg tablet 150 mg PO DAILY Referrals: Miscellaneous,Doctor, MD [Primary Care Provider] - Stand Alone Forms: Patient Portal/API
[2024-05-11] MEDS: SODIUM CHLORIDE 0.9% 1,000 ML 1000 ML IV ×2 (02:14→03:14)
[2024-05-11] MEDS: ONDANSETRON 4 MG/2 ML INJ IV ×2 (02:15→06:48)
[2024-05-11] MEDS: THIAMINE 100 MG in SODIUM CHLORIDE 0.9% 100 ML 404 MG IV (02:15)
[2024-05-11] MEDS: PHENobarbital 65 MG/ML VIAL 260 MG IV (02:16)
[2024-05-11 03:39] LABS: Add Manual Diff / Slide Review NO; Basophils Absolute Auto 0 /uL (0-100); Basophils Percent Auto 0.5 % (0-2); Eosinophils Absolute Auto 0 /uL (0-450); Eosinophils Percent Auto 0.1 % (2-4); Hematocrit 32.2 % (36-46); Hemoglobin 10.9 g/dL (12.0-16.0); Lymphocytes Absolute Auto 1200 /uL (1100-4500); Lymphocytes Percent Auto 27.8 % (25-40); Mean Corpuscular HGB Conc 33.9 % (30-36); Mean Corpuscular Hemoglobin 31.8 PG (26-34); Mean Corpuscular Volume 93.9 fL (80-100); Monocytes Absolute Auto 200 /uL (0-900); Monocytes Percent Auto 5.8 % (3-14); Neutrophils Absolute Auto 2700 /uL (1500-7000); Neutrophils Percent Auto 65.8 % (50-75); Platelet Count 177 X10^3/uL (150-400); Red Blood Cell Count 3.43 X10^6/uL (4.0-5.2); Red Cell Distribution Width 14.5 % (11.6-14.8); White Blood Cell Count 4.2 X10^3/uL (4.5-11.0)
[2024-05-11 03:49] LABS: Alanine Aminotransferase 76 IU/L (<35); Albumin 4.3 g/dL (3.5-5.0); Albumin Globulin Ratio 1.7 (1.0-2.8); Alkaline Phosphatase 53 U/L (38-126); Aspartate Aminotransferase 129 IU/L (14-36); BUN Creatinine Ratio 24.2 (6-22); Bilirubin Total 0.5 mg/dL (0.2-1.3); Blood Urea Nitrogen 15 mg/dL (7-17); Calcium 7.5 mg/dL (8.4-10.2); Carbon Dioxide 24 mmol/L (22-32); Chloride 100 mmol/L (98-107); Estimated Glomerular Filt Rate > 60 mL/min (>60); Ethanol (ETOH) 212 mg/dL; Globulin 2.6 g/dL (1.7-4.1); Glucose 117 mg/dL (70-100); HEMOLYSIS < 15 (0-50); Lipase 230 U/L (23-300); Potassium 4.2 mmol/L (3.4-5.1); Sodium 137 mmol/L (137-145); Total Protein 6.9 g/dL (6.3-8.2)
[2024-05-11 03:57] LABS: Pregnancy Test Serum,Qual Negative (Negative)
[2024-05-11] MEDS: ACETAMINOPHEN 325 MG TABLET 650 MG PO ×2 (04:10→09:02)
[2024-05-11 04:30] LABS: Appearance Urine UA CLEAR; Bilirubin Urine UA NEGATIVE (NEGATIVE); Color Urine UA YELLOW; Glucose Urine UA NEGATIVE (Negative); Ketones Urine UA 1+ (NEGATIVE); Leukocyte Esterase Urine UA NEGATIVE (NEGATIVE); Nitrite Urine UA NEGATIVE (Negative); Occult Blood Urine UA TRACE-INTACT (Negative); Protein Urine UA 3+ (Negative); Specific Gravity Urine UA >=1.030 (1.000-1.035)
[2024-05-11 04:33] LABS: UR Morphine/Opiate cutoff 300 Negative (Negative); Ur Creatinine Normal (Normal); Ur Specific Gravity Normal (Normal); Urine Amphetamines Negative (Negative); Urine Barbiturates Negative (Negative); Urine Benzodiazepines Negative (Negative); Urine Cocaine Negative (Negative); Urine MDMA Negative (Negative); Urine Methadone Negative (Negative); Urine Methamphetamines Negative (Negative); Urine Oxycodone Negative (Negative); Urine Phencyclidine Negative (Negative); Urine Tetrahydrocannabinol Negative (Negative); Urine Tricyclic Antidepressant Negative (Negative); Urine pH Normal (Normal)
[2024-05-11 04:40] LABS: RBC Urine 0-1/HPF (0-5/HPF); Urine Volume 10mL (spun); WBC Urine 5-10/HPF (0-5/HPF); pH Urine UA 6.5 (4.5-8.0)
[2024-05-11 04:41] LABS: Bacteria Urine Many (>30); Culture Indicated Urine Specimen Cultured; Mucus Urine 2+ (Negative); Squamous Epithelial Cell Urine 10-30 /HPF (0-5/HPF)
--- NOTE | 2024-05-11 05:49 | PC.NURSE ---
Addendum entered by Sylvia Gonzalez CNA 05/11/24 06:07: KATHY note: Spoke to Alejandra at [facility]. Alejandra had some questions from the patient screening, specifically how the patient says she can't walk while detoxing. They wanted more clarity on that. I asked patient about that. Patient stated that she has a hard time walking when she is detoxing. I asked her to explain what she meant. Patient said she has can't feel her legs while detoxing and she has depth perception problems. I relayed that message to Alejandra. Alejandra explained that per policy they has to be able to do their own ADLS because they don't have the staff to help with that. I asked patient if she can get up to the bathroom by herself. Patient said yea---I mean no. I can't. I can't walk while detoxing. I asked how long does this usually last. A couple hours? Days? Uh... it takes like 3 days. I passed this onto Alejandra. Alejandra said she would pass this onto her provider. Original Note: KATHY note: Spoke to [facility] for placement. Faxed over a packet and had patient do a phone screen. Waiting for [facility] for follow up
--- NOTE | 2024-05-11 08:54 | PC.NURSE ---
Pt ambulated to restroom with walker and was able to walk back to her room with RN at her side, without the walker.
[2024-05-11 08:56] LABS: Appearance Urine UA CLEAR; Bilirubin Urine UA NEGATIVE (NEGATIVE); Color Urine UA YELLOW; Glucose Urine UA 1+ g/dL (Negative); Ketones Urine UA 1+ (NEGATIVE); Leukocyte Esterase Urine UA NEGATIVE (NEGATIVE); Nitrite Urine UA NEGATIVE (Negative); Occult Blood Urine UA NEGATIVE (Negative); Protein Urine UA 2+ (Negative)
[2024-05-11] MEDS: chlordiazePOXIDE 25 MG CAPSULE 50 MG PO (09:03)
[2024-05-11] MEDS: levETIRAcetam 250 MG TABLET 500 MG PO (09:04)
[2024-05-11] MEDS: GABAPENTIN 300 MG CAPSULE PO (09:04)
[2024-05-11] MEDS: BUSPIRONE 5 MG TABLET 15 MG PO (09:05)
[2024-05-11] MEDS: SERTRALINE 50 MG TABLET 150 MG PO (09:05)
[2024-05-11 09:12] LABS: pH Urine UA 6.5 (4.5-8.0)
[2024-05-11 09:16] LABS: RBC Urine None Seen (0-5/HPF); Urine Volume 10mL (spun); WBC Urine 1-5/HPF (0-5/HPF)
[2024-05-11 09:17] LABS: Bacteria Urine Few (2-10); Culture Indicated Urine Specimen Cultured; Squamous Epithelial Cell Urine 10-30 /HPF (0-5/HPF)
--- NOTE | 2024-05-11 09:46 | EKG_ITS ---
[address] [address] [address] [address] Test Date: 2024-05-11 Pat Name: Patty Blas Department: Room: Gender: Female Agent Spa Desk: AUGUST : 1990 Requested By: Order Number: [id number] Reading MD: Rober Pedro MD Measurements Intervals [place] Rate: 85 P: 72 CA: 150 QRS: 75 QRSD: 90 T: 48 QT: 402 QTc: 478 Interpretive Statements Normal sinus rhythm with sinus arrhythmia Electronically Signed On 05-11-2024 12:07:30 PDT by Rober Pedro MD
--- NOTE | 2024-05-11 11:15 | PC.NURSE ---
This PROMOTIONS MANAGER recontacted [facility] this am, was informed by [facility] intake that they cannot take pt with medical needs. Contacted [facility] who cannot take medical patient. Reached out to [facility] who would perform a phone screening and review pt ED visit, however, pt was unable to perform phone screening this am per [facility].
--- NOTE | 2024-05-11 14:40 | PC.NURSE ---
At patient's request, left message on grandmother's phone to call ED. Spoke with brother, he is unable to assist. Will send patient home in a [employer] taxi with voucher. Brother aware.
--- NOTE | 2024-05-11 14:58 | CM.SWNOTE ---
ED BUCKRAM SEWER Note Patient is 34 y/o female who presents to ED due to concern for ETOH withdrawals after recent relapse. Patient states she was sober for about 36 days and has been drinking the last week about 1/2 gallon of whiskey a day. Patient has hx of similar presentations to the ED in the last year. Patient is established with [facility] and states she has not been in for an appt in the last week. This BUCKRAM SEWER and ED HUCs attempted to get patient placed for medical detox at several locations but patient presents with hesitation to be able to shower independently, manage ADLs and requesting to use her cane for ambulation which she uses at baseline. BUCKRAM SEWER explains the barrier for acceptance at detox and patient indicates understanding. BUCKRAM SEWER provides patient with list of local AA meetings and encourages patient to f/u with [facility]. Patient states she wants to engage in groups at [facility] as well. Patient is medically clear for d/c. Patient's RN calls family to seek out transportation and no one is available to do so. BUCKRAM SEWER attempts [employer] taxi but due to their limited availability they may not have transport until 1700. BUCKRAM SEWER calls [email or web address] and at first they state they are unsure about their availability due to only having one pharmacy delivery driver at this time. [employer] calls back and states they can provide transport. Plan: patient to d/c to home upon medical clearance via taxi voucher, patient to f/u with [facility] outpatient at [facility] and to f/u with AA meetings. Patty Kothari, CAL[employer] PRESS OPERATOR
== END 2024-05-11 15:50 | disposition home or self-care (01) ==
PROVIDERS: Emergency Medicine; Emergency Provider Emergency Medicine
DX: F10.239 Alcohol dependence with withdrawal, unspecified (principal); Y90.7 Blood alcohol level of 200-239 mg/100 ml
CPT/HCPCS: 80053; 80305; 80320; 81001; 82962; 83690; 84703; 85025; 87086; 93005; 93010; 96361; 96374; 96375; 96376; 99284; J2405; J2560

== ENCOUNTER 2024-06-20 13:02 | Emergency (ER) | payer OTHER, MEDICAID, SELFPAY ==
[2023-11-28 19:25] VITALS: BMI 21.2
[2024-06-20] VITALS (15 sets, daily range): BP systolic 102–123; BP diastolic 58–77; PULSE 69–97; RESP 14–20; TEMP 36.7; O2SAT 93–100; BMI 17.0
--- NOTE | 2024-06-20 13:14 | DI.RAD.S_ITS ---
PROCEDURE: XR ANKLE LT MIN 3V INDICATIONS: unknown injury with swelling and and non weight baring TECHNIQUE: 3 views of the ankle were acquired. COMPARISON: None. FINDINGS: Bones: No fractures or dislocations. Ankle mortise is normally aligned. No suspicious bony lesions. Soft tissues: Minimal medial malleolar edema. IMPRESSION: No visualized acute fracture or dislocation. However, if clinical concern and/or pain persist, short interval imaging followup in 7-10 days is recommended, as occult injury cannot be definitively excluded. Dictated by: Claudine Paul M.D. on 06/20/2024 at 13:56 Approved by: Claudine Paul M.D. on 06/20/2024 at 13:56
[2024-06-20] MEDS: SODIUM CHLORIDE 0.9% 500 ML 1000 ML IV (13:59)
[2024-06-20] MEDS: ONDANSETRON 4 MG/2 ML INJ IV (14:00)
[2024-06-20] MEDS: LORazepam 2 MG/ML INJ 0.5 MG IV (14:00)
[2024-06-20 14:11] LABS: Add Manual Diff / Slide Review NO; Basophils Absolute Auto 0 /uL (0-100); Basophils Percent Auto 0.8 % (0-2); Eosinophils Absolute Auto 0 /uL (0-450); Eosinophils Percent Auto 1.1 % (2-4); Hematocrit 37.9 % (36-46); Hemoglobin 12.9 g/dL (12.0-16.0); Lymphocytes Absolute Auto 2100 /uL (1100-4500); Lymphocytes Percent Auto 48.8 % (25-40); Mean Corpuscular HGB Conc 33.9 % (30-36); Mean Corpuscular Hemoglobin 32.5 PG (26-34); Mean Corpuscular Volume 95.8 fL (80-100); Monocytes Absolute Auto 200 /uL (0-900); Monocytes Percent Auto 4.8 % (3-14); Neutrophils Absolute Auto 1900 /uL (1500-7000); Neutrophils Percent Auto 44.5 % (50-75); Platelet Count 251 X10^3/uL (150-400); Red Blood Cell Count 3.96 X10^6/uL (4.0-5.2); Red Cell Distribution Width 13.6 % (11.6-14.8); White Blood Cell Count 4.3 X10^3/uL (4.5-11.0)
--- NOTE | 2024-06-20 14:18 | PC.NURSE ---
Patient reports suddenly stopping taking sertraline 150mg daily 5 days ago when patient started the alcohol schultz. Patient takes Keppra twice daily and took her morning dose. Provider notified and no new orders.
[2024-06-20 14:24] LABS: Alanine Aminotransferase 41 IU/L (<35); Albumin 4.6 g/dL (3.5-5.0); Albumin Globulin Ratio 1.3 (1.0-2.8); Alkaline Phosphatase 48 U/L (38-126); Aspartate Aminotransferase 55 IU/L (14-36); BUN Creatinine Ratio 23.1 (6-22); Bilirubin Total 0.4 mg/dL (0.2-1.3); Blood Urea Nitrogen 15 mg/dL (7-17); Calcium 9.1 mg/dL (8.4-10.2); Carbon Dioxide 29 mmol/L (22-32); Chloride 105 mmol/L (98-107); Estimated Glomerular Filt Rate > 60 mL/min (>60); Globulin 3.6 g/dL (1.7-4.1); Glucose 88 mg/dL (70-100); Potassium 4.3 mmol/L (3.4-5.1); Sodium 143 mmol/L (137-145); Total Protein 8.2 g/dL (6.3-8.2)
--- NOTE | 2024-06-20 14:26 | PC.NURSE ---
Fellow RN attempted 3 IV attempts on this patient and was able to secure blood but unable to have a working IV. This RN attempted 3 as well and got a working IV upon third attempt.
[2024-06-20 14:27] LABS: HEMOLYSIS 55 (0-50)
[2024-06-20 14:31] LABS: Ethanol (ETOH) 318 mg/dL
[2024-06-20 15:16] LABS: UR Morphine/Opiate cutoff 300 Negative (Negative); Ur Creatinine Normal (Normal); Ur Specific Gravity Normal (Normal); Urine Amphetamines Negative (Negative); Urine Barbiturates Negative (Negative); Urine Benzodiazepines Negative (Negative); Urine Cocaine Negative (Negative); Urine MDMA Negative (Negative); Urine Methadone Negative (Negative); Urine Methamphetamines Negative (Negative); Urine Oxycodone Negative (Negative); Urine Phencyclidine Negative (Negative); Urine Tetrahydrocannabinol Negative (Negative); Urine Tricyclic Antidepressant Negative (Negative); Urine pH Normal (Normal)
[2024-06-20 15:17] LABS: Pregnancy Test Urine Negative (Negative)
[2024-06-20 15:28] LABS: Bacteria Urine Occasional (0-1); Culture Indicated Urine Cult Not Indicated; Mucus Urine 1+ (Negative); RBC Urine None Seen (0-5/HPF); Squamous Epithelial Cell Urine 0-1 /HPF (0-5/HPF); Urine Volume 10mL (spun); WBC Urine None Seen (0-5/HPF)
--- NOTE | 2024-06-20 15:31 | ED.LOWEXIN ---
HPI - Extremity Injury (Lower) <Kinsey Mahoney PA-C - Last Filed: 06/21/24 10:11> General Chief Complaint: Extremity Injury, Lower Stated Complaint: L Ankle Pain Time Seen by Provider: 06/20/24 13:34 Source: patient Mode of arrival: EMS History of Present Illness HPI Narrative: Patient is a 34-year-old female that presents to the emergency room department today via EMS, she lives in [place] with her grandparents, she just moved there. She presents here today with the initial complaint of left lower foot discomfort and pain, she was at work today and was unable to continue working due to extreme pain in the left foot. Patient denies recent injury, trauma or fall. Patient wondering if she is possibly torn something or torn ligaments in her feet. She says that she is unable to stand for any extended period of time due to extreme discomfort and pain. The patient is able to stand and pivot off of the stretcher and walk to the chair, she has a cane with her and her vague. Patient appears extremely disheveled. The patient initially goes to the bathroom and takes her bag with her, at a later date we noticed that she has a bottle of alcohol in her bag. Upon sitting down and talking with the patient initially she initially talks about her foot pain, and then goes off course and starts talking about her eating disorder, and being concerned about going into alcohol withdrawals. However, the patient is an extremely poor historian, and it is hard to correlate her story of her history of alcoholism. It sounds like the patient has had a longstanding history of binge drinking, recently was sober for somewhere around 30 just 35 days but the patient states she does not like to count days. Seems like she then went on a recent Sun several days last week, and then stopped drinking this past Sunday, and then started to feel as if she was going to have withdrawal symptoms as an seen spiders and starting to visually hallucinating with a history of seizure associated with alcohol withdrawal. So the patient checked large amount of whiskey prior to EMS picking her up and bring her here to the emergency room department. Patient is extremely embarrassed, she is really having a difficult time expressing herself, she has having a difficult time discussing the timeline which is really hard for me to follow. My understanding with talking the patient is that she has a relationship with a mental health provider here in the [facility], she has recently been detained but states that is under false pretenses October of this year. She also states she has been recently in rehab as in May of this year. She states that she currently is having a hard time with the alcohol, she understands that it is destroying her health as well as her emotional well-being. She is difficult to get a read on. Related Data Home Medications Medication Instructions Recorded Confirmed gabapentin 400 mg capsule 400 mg PO 3XD 11/29/23 11/30/23 naloxone 4 mg/actuation nasal spray 1 spray intranasal Q2M PRN Opioid 12/01/23 12/01/23 Overdose sertraline 100 mg tablet (Zoloft) 150 mg PO DAILY 01/04/24 05/11/24 WesTab Plus 330 tab PO 1XD 05/11/24 05/11/24 acamprosate 1 tab PO 3XD 05/11/24 05/11/24 Previous Rx's Medication Instructions Recorded buspirone 15 mg tablet 7.5 mg (1/2 x 15 mg) PO BID #90 12/08/23 tabs cholecalciferol (vitamin D3) 25 25 mcg PO 1XD #30 caps 12/08/23 mcg (1,000 unit) capsule (Vitamin D3) clonidine HCl 0.1 mg tablet 0.1 mg PO 3XD PRN Anxiety #60 tabs 12/08/23 fluticasone propionate 50 1 spray intranasal DAILY PRN 12/08/23 mcg/actuation nasal allergies #1 g spray,suspension folic acid 1 mg tablet 1 mg PO DAILY #30 tabs 12/08/23 gabapentin 300 mg capsule 300 mg PO 3XD #90 caps 12/08/23 hydroxyzine HCl 25 mg tablet 25 mg PO 3XD PRN anxiety #30 tabs 12/08/23 levetiracetam 500 mg tablet 500 mg PO BID #60 tabs 12/08/23 lorazepam 1 mg tablet 1 mg PO Q6HR PRN Anxiety #30 tabs 12/08/23 norgestimate 0.25 mg-ethinyl 1 tab PO DAILY #30 tabs 12/08/23 estradiol 35 mcg tablet phenazopyridine 100 mg tablet 100 mg PO TID PRN pain #10 tabs 12/08/23 (Pyridium) vits no.130-ferrous fum 1 tab PO DAILY #100 tabs 12/08/23 27 mg iron-folic acid 800 mcg tablet ( Vitamin) thiamine HCl (vitamin B1) 100 mg 100 mg PO DAILY #30 tabs 12/08/23 tablet (Vitamin B-1) trazodone 50 mg tablet 50 mg PO PRN PRN Sleep #30 tabs 12/08/23 Allergies Allergy/AdvReac Type Severity Reaction Status Date / Time No Known Drug Allergies Allergy Verified 11/28/23 15:18 Review of Systems <Kinsey Mahoney PA-C - Last Filed: 06/21/24 10:11> Review of Systems Narrative: Negative except as above Musculoskeletal Comments: Left foot pain Psychiatric Comments: Alcohol withdrawal with a longstanding history of excessive alcohol usage Eating disorder, with large amounts of food, and then excessive exercise. Patient History <Kinsey Mahoney PA-C - Last Filed: 06/21/24 10:11> Medical History Alcohol use disorder Social History household members: family Smoking Status: Current every day smoker alcohol intake: current Smoking Status: Current every day smoker tobacco type: vaping alcohol intake frequency: 3 or more drinks per day Alcohol type: hard liquor Substance Use Type: does not use Exam <Kinsey Mahoney PA-C - Last Filed: 06/21/24 10:11> Initial Vital Signs Initial Vital Signs: Vital Signs Temperature 98.0 F 06/20/24 13:05 Pulse Rate 72 06/20/24 13:05 Respiratory Rate 16 06/20/24 13:05 Blood Pressure 112/68 06/20/24 13:05 Pulse Oximetry 100 06/20/24 13:05 Oxygen Delivery Method Room Air 06/20/24 13:05 Const General: in distress, anxious, disheveled and intoxicated appearing Nutritional Appearance: thin and underweight Eyes General: Yes appearance normal, both eyes and all related structures Pupils: PERRL and pupil size (3-4, several beats of nystagmus noted upon exam.) EOM: nystagmus (Bilaterally several beats) Resp Effort & Inspection: normal respiratory effort, able to speak in complete sentences and normal respiratory pattern Auscultation: clear to auscultation bilaterally, no crackles, lung sounds not diminished, no rales, no rhonchi, no wheezes and no rubs Tactile Fremitus: tactile fremitus absent Cardio Rate: regular rate Rhythm: regular rhythm Heart Sounds: S1 normal GI Palpation: soft, No firm, No guarding, No rigid, No splenomegaly and No tender Skin Other: Patient has bruising, foreskin care. Her hair is disheveled, nails are dirty. Neuro General: patient alert, patient awake, patient oriented x3 and moves all extremities Cranial Nerves: CN's II-XI intact bilaterally and nystagmus (Bilaterally several beats) Cognition: normal cognition Speech: speech normal Gait: other (Not tested) Extrem Other: No obvious asterixis noted on exam Psych Appearance: disheveled Mental Status: mental status grossly normal Speech and Movement: other (Patient is just confused about timelines) Affect: labile affect, sad and blunted Attitude: guarded Thought Process: illogical Thought Content: other (Patient is embarrassed about her ongoing medical issues, difficulty being h) Judgment: poor <Ricci Jasmine DO - Last Filed: 06/24/24 18:46> Initial Vital Signs Initial Vital Signs: Vital Signs Temperature 98.0 F 06/20/24 13:05 Pulse Rate 72 06/20/24 13:05 Respiratory Rate 16 06/20/24 13:05 Blood Pressure 112/68 06/20/24 13:05 Pulse Oximetry 100 06/20/24 13:05 Oxygen Delivery Method Room Air 06/20/24 13:05 Scores <Kinsey Mahoney PA-C - Last Filed: 06/21/24 10:11> GCS Citation: 15 Course <Kinsey Mahoney PA-C - Last Filed: 06/21/24 10:11> Orders Ordered: Discontinued Medications Sodium Chloride (Normal Saline 0.9%) 500 mls @ 1,000 mls/hr IV BOLUS ONE Stop: 06/20/24 14:03 Last Infusion: 06/20/24 14:44 Dose: Infused Documented By: Admin: 06/20/24 13:59 Dose: 1,000 mls/hr Documented By: HAROON Sodium Chloride (Normal Saline 0.9%) 1,000 mls @ 1,000 mls/hr IV BOLUS ONE Stop: 06/20/24 17:23 Last Infusion: 06/20/24 19:00 Dose: Infused Documented By: Admin: 06/20/24 16:54 Dose: 1,000 mls/hr Documented By: RICKEY Lorazepam (Lorazepam 2 Mg/Ml Inj) 0.5 mg IV NOW ONE Stop: 06/20/24 13:35 Last Admin: 06/20/24 14:00 Dose: 0.5 mg Documented By: HAROON Nicotine (Nicotine 21 Mg Patch) 21 mg TOP NOW ONE Stop: 06/20/24 18:47 Last Admin: 06/20/24 19:08 Dose: 21 mg Documented By: MARTHA Ondansetron HCl (Ondansetron 4 Mg/2 Ml Inj) 4 mg IV NOW ONE Stop: 06/20/24 13:35 Last Admin: 06/20/24 14:00 Dose: 4 mg Documented By: HAROON Phenobarbital (Phenobarbital 65 Mg/Ml Vial) 260 mg IM NOW ONE Stop: 06/20/24 19:23 Last Admin: 06/20/24 20:17 Dose: Not Given Documented By: SSAHA Vital Signs Vital signs: Vital Signs - 8 hr 06/20/24 14:27 06/20/24 14:30 06/20/24 15:00 Pulse Rate 72 81 77 Respiratory Rate 14 15 16 Blood Pressure 112/70 120/77 108/66 Pulse Oximetry 99 99 97 Oxygen Delivery Method Room Air 06/20/24 15:30 06/20/24 16:00 06/20/24 16:30 Pulse Rate 69 75 95 H Respiratory Rate 14 15 20 Blood Pressure 104/58 L 102/60 123/77 Pulse Oximetry 96 97 97 Oxygen Delivery Method 06/20/24 17:00 06/20/24 17:30 06/20/24 18:49 Pulse Rate 95 H 80 86 Respiratory Rate 18 17 Blood Pressure 119/73 111/69 Pulse Oximetry 99 97 Oxygen Delivery Method 06/20/24 18:50 06/20/24 18:50 06/20/24 19:00 Pulse Rate 88 Respiratory Rate 17 Blood Pressure 114/74 113/75 Pulse Oximetry 100 Oxygen Delivery Method Room Air 06/20/24 19:00 06/20/24 19:30 06/20/24 20:00 Pulse Rate 87 96 H 97 H Respiratory Rate 18 18 18 Blood Pressure Pulse Oximetry 96 97 93 Oxygen Delivery Method Room Air Reviewed <Ricci Jasmine DO - Last Filed: 06/24/24 18:46> Orders Ordered: Discontinued Medications Sodium Chloride (Normal Saline 0.9%) 500 mls @ 1,000 mls/hr IV BOLUS ONE Stop: 06/20/24 14:03 Last Infusion: 06/20/24 14:44 Dose: Infused Documented By: Admin: 06/20/24 13:59 Dose: 1,000 mls/hr Documented By: RB Sodium Chloride (Normal Saline 0.9%) 1,000 mls @ 1,000 mls/hr IV BOLUS ONE Stop: 06/20/24 17:23 Last Infusion: 06/20/24 19:00 Dose: Infused Documented By: Admin: 06/20/24 16:54 Dose: 1,000 mls/hr Documented By: RICKEY Lorazepam (Lorazepam 2 Mg/Ml Inj) 0.5 mg IV NOW ONE Stop: 06/20/24 13:35 Last Admin: 06/20/24 14:00 Dose: 0.5 mg Documented By: HAROON Nicotine (Nicotine 21 Mg Patch) 21 mg TOP NOW ONE Stop: 06/20/24 18:47 Last Admin: 06/20/24 19:08 Dose: 21 mg Documented By: MARTHA Ondansetron HCl (Ondansetron 4 Mg/2 Ml Inj) 4 mg IV NOW ONE Stop: 06/20/24 13:35 Last Admin: 06/20/24 14:00 Dose: 4 mg Documented By: RB Phenobarbital (Phenobarbital 65 Mg/Ml Vial) 260 mg IM NOW ONE Stop: 06/20/24 19:23 Last Admin: 06/20/24 20:17 Dose: Not Given Documented By: SASHA Vital Signs Vital signs: Vital Signs - 8 hr 06/20/24 14:27 06/20/24 14:30 06/20/24 15:00 Pulse Rate 72 81 77 Respiratory Rate 14 15 16 Blood Pressure 112/70 120/77 108/66 Pulse Oximetry 99 99 97 Oxygen Delivery Method Room Air 06/20/24 15:30 06/20/24 16:00 06/20/24 16:30 Pulse Rate 69 75 95 H Respiratory Rate 14 15 20 Blood Pressure 104/58 L 102/60 123/77 Pulse Oximetry 96 97 97 Oxygen Delivery Method 06/20/24 17:00 06/20/24 17:30 06/20/24 18:49 Pulse Rate 95 H 80 86 Respiratory Rate 18 17 Blood Pressure 119/73 111/69 Pulse Oximetry 99 97 Oxygen Delivery Method 06/20/24 18:50 06/20/24 18:50 06/20/24 19:00 Pulse Rate 88 Respiratory Rate 17 Blood Pressure 114/74 113/75 Pulse Oximetry 100 Oxygen Delivery Method Room Air 06/20/24 19:00 06/20/24 19:30 06/20/24 20:00 Pulse Rate 87 96 H 97 H Respiratory Rate 18 18 18 Blood Pressure Pulse Oximetry 96 97 93 Oxygen Delivery Method Room Air MDM - Extremity Injury (Lower) <Kinsey Mahoney PA-C - Last Filed: 06/21/24 10:11> Lab Data 06/20/24 13:50 06/20/24 13:50 Labs: Lab Results 06/20/24 06/20/24 Range/Units 13:50 14:50 WBC 4.3 L (4.5-11.0) X10^3/uL RBC 3.96 L (4.0-5.2) X10^6/uL Hgb 12.9 (12.0-16.0) g/dL Hct 37.9 (36-46) % MCV 95.8 (80-100) fL MCH 32.5 (26-34) PG MCHC 33.9 (30-36) % RDW 13.6 (11.6-14.8) % Plt Count 251 (150-400) X10^3/uL Neut % (Auto) 44.5 L (50-75) % Lymph % (Auto) 48.8 H (25-40) % [place] % (Auto) 4.8 (3-14) % Eos % (Auto) 1.1 L (2-4) % Baso % (Auto) 0.8 (0-2) % Neut # (Auto) 1900 (7543-0453) /uL Lymph # (Auto) 2100 (2431-7347) /uL [place] # (Auto) 200 (0-900) /uL Eos # (Auto) 0 (0-450) /uL Baso # (Auto) 0 (0-100) /uL Sodium 143 (137-145) mmol/L Potassium 4.3 (3.4-5.1) mmol/L Chloride 105 (98-107) mmol/L Carbon Dioxide 29 (22-32) mmol/L BUN 15 (7-17) mg/dL Creatinine 0.65 (0.52-1.04) mg/dL Estimated GFR > 60 (>60) mL/min BUN/Creatinine Ratio 23.1 H (6-22) Glucose 88 (70-100) mg/dL Calcium 9.1 (8.4-10.2) mg/dL Total Bilirubin 0.4 (0.2-1.3) mg/dL AST 55 H (14-36) IU/L ALT 41 H (<35) IU/L Alkaline Phosphatase 48 (38-126) U/L Total Protein 8.2 (6.3-8.2) g/dL Albumin 4.6 (3.5-5.0) g/dL Globulin 3.6 (1.7-4.1) g/dL Albumin/Globulin Ratio 1.3 (1.0-2.8) Urine RBC None seen (0-5/HPF) Urine WBC None seen (0-5/HPF) Ur Squamous Epith Cells 0-1 /hpf D (0-5/HPF) Urine Bacteria Occasional (0-1) (None) Urine Mucus 1+ H (Negative) Ur Culture Indicated? Cult not indicated Vol Urine Centrifuged 10ml (spun) Urine Test Negative (Negative) U Opiates 300ng/mL cut Negative (Negative) Ur Oxycodone Screen Negative (Negative) Urine Methadone Screen Negative (Negative) Ur Barbiturates Screen Negative (Negative) U Tricyclic Antidepress Negative (Negative) Ur Phencyclidine Scrn Negative (Negative) Ur Amphetamines Screen Negative (Negative) U Methamphetamines Scrn Negative (Negative) Ur MDMA Scrn (Ecstasy) Negative (Negative) U Benzodiazepines Scrn Negative (Negative) Urine Cocaine Screen Negative (Negative) U Marijuana (THC) Screen Negative (Negative) Urine pH Normal (Normal) Urine Specific [place] Normal (Normal) Ethyl Alcohol 318 H ( - 10) mg/dL Ur Creatinine Normal (Normal) Imaging Data Extremity x-ray #1: Radiologist's Impression: [address] [address] XRay Report Signed Patient: Patty Avila MR#: [id number] : 1990 Acct:[id number] Age/Sex: 34 / F Date of Service: 06/20/24 Loc: ED Accession Number: [id number] Procedure: XR ankle LT min 3V Ordering Provider: Kinsey Mahoney PA-C PROCEDURE: XR ANKLE LT MIN 3V INDICATIONS: unknown injury with swelling and and non weight baring TECHNIQUE: 3 views of the ankle were acquired. COMPARISON: None. FINDINGS: Bones: No fractures or dislocations. Ankle mortise is normally aligned. No suspicious bony lesions. Soft tissues: Minimal medial malleolar edema. IMPRESSION: No visualized acute fracture or dislocation. However, if clinical concern and/or pain persist, short interval imaging followup in 7-10 days is recommended, as occult injury cannot be definitively excluded. Dictated by: Claudine Paul M.D. on 06/20/2024 at 13:56 Approved by: Claudine Paul M.D. on 06/20/2024 at 13:56 [facility] Narrative Medical decision making narrative: Patient is a 34-year-old female brought into the emergency department by ambulance her chief complaint initially was left foot pain however the complaint then moved into eating disorder, withdrawal symptoms associated with chronic alcoholism, binge drinking, concerns for recent onset of withdrawal symptoms, wanting inpatient health, and kind of expanded on her initial complaint. Patient received an IV IV fluids IV Zofran IV Ativan X-ray of the left foot was done no acute finding Urine which was negative Urine which was negative for infection CBC which did not show an elevated white count, she has not anemic CMP to check electrolytes, mild elevated liver function Drug screen which was negative for any substantial findings Alcohol which was 318 the patient drank several large swigs of whiskey prior to being seen in the emergency room department has a bottle of alcohol in her bag Currently at this time the patient is requesting to be evaluated for inpatient alcohol detox I have asked social work to evaluate the patient Currently at this time the patient will be moved over to the main ER Transition from my care to the attending will take place Differential diagnosis; left foot pain, left foot strain, alcoholism, malnutrition, vitamin deficiency, binge drinking, underlying psychosocial issues, underlying depression, underlying anxiety, chronic pain. <Ricci Jasmine, - Last Filed: 06/24/24 18:46> Lab Data Labs: Lab Results 10/11/24 10/11/24 Range/Units 13:50 14:50 WBC 4.3 L (4.5-11.0) X10^3/uL RBC 3.96 L (4.0-5.2) X10^6/uL Hgb 12.9 (12.0-16.0) g/dL Hct 37.9 (36-46) % MCV 95.8 (80-100) fL MCH 32.5 (26-34) PG MCHC 33.9 (30-36) % RDW 13.6 (11.6-14.8) % Plt Count 251 (150-400) X10^3/uL Neut % (Auto) 44.5 L (50-75) % Lymph % (Auto) 48.8 H (25-40) % [place] % (Auto) 4.8 (3-14) % Eos % (Auto) 1.1 L (2-4) % Baso % (Auto) 0.8 (0-2) % Neut # (Auto) 1900 (3683-8200) /uL Lymph # (Auto) 2100 (2329-2009) /uL [place] # (Auto) 200 (0-900) /uL Eos # (Auto) 0 (0-450) /uL Baso # (Auto) 0 (0-100) /uL Sodium 143 (137-145) mmol/L Potassium 4.3 (3.4-5.1) mmol/L Chloride 105 (98-107) mmol/L Carbon Dioxide 29 (22-32) mmol/L BUN 15 (7-17) mg/dL Creatinine 0.65 (0.52-1.04) mg/dL Estimated GFR > 60 (>60) mL/min BUN/Creatinine Ratio 23.1 H (6-22) Glucose 88 (70-100) mg/dL Calcium 9.1 (8.4-10.2) mg/dL Total Bilirubin 0.4 (0.2-1.3) mg/dL AST 55 H (14-36) IU/L ALT 41 H (<35) IU/L Alkaline Phosphatase 48 (38-126) U/L Total Protein 8.2 (6.3-8.2) g/dL Albumin 4.6 (3.5-5.0) g/dL Globulin 3.6 (1.7-4.1) g/dL Albumin/Globulin Ratio 1.3 (1.0-2.8) Urine RBC None seen (0-5/HPF) Urine WBC None seen (0-5/HPF) Ur Squamous Epith Cells 0-1 /hpf D (0-5/HPF) Urine Bacteria Occasional (0-1) (None) Urine Mucus 1+ H (Negative) Ur Culture Indicated? Cult not indicated Vol Urine Centrifuged 10ml (spun) Urine Test Negative (Negative) U Opiates 300ng/mL cut Negative (Negative) Ur Oxycodone Screen Negative (Negative) Urine Methadone Screen Negative (Negative) Ur Barbiturates Screen Negative (Negative) U Tricyclic Antidepress Negative (Negative) Ur Phencyclidine Scrn Negative (Negative) Ur Amphetamines Screen Negative (Negative) U Methamphetamines Scrn Negative (Negative) Ur MDMA Scrn (Ecstasy) Negative (Negative) U Benzodiazepines Scrn Negative (Negative) Urine Cocaine Screen Negative (Negative) U Marijuana (THC) Screen Negative (Negative) Urine pH Normal (Normal) Urine Specific [place] Normal (Normal) Ethyl Alcohol 318 H ( - 10) mg/dL Ur Creatinine Normal (Normal) MDM Narrative Medical decision making narrative: Patient is a 34-year-old female brought into the emergency department by ambulance her chief complaint initially was left foot pain however the complaint then moved into eating disorder, withdrawal symptoms associated with chronic alcoholism, binge drinking, concerns for recent onset of withdrawal symptoms, wanting inpatient health, and kind of expanded on her initial complaint. Patient received an IV IV fluids IV Zofran IV Ativan X-ray of the left foot was done no acute finding Urine which was negative Urine which was negative for infection CBC which did not show an elevated white count, she has not anemic CMP to check electrolytes, mild elevated liver function Drug screen which was negative for any substantial findings Alcohol which was 318 the patient drank several large swigs of whiskey prior to being seen in the emergency room department has a bottle of alcohol in her bag Currently at this time the patient is requesting to be evaluated for inpatient alcohol detox I have asked social work to evaluate the patient Currently at this time the patient will be moved over to the main ER Transition from my care to the attending will take place Differential diagnosis; left foot pain, left foot strain, alcoholism, malnutrition, vitamin deficiency, binge drinking, underlying psychosocial issues, underlying depression, underlying anxiety, chronic pain. Dr Jasmine: Received turned over. Review patient's history and physical and workup up to this point. Patient does have an elevated alcohol level but she was alert and oriented. Was able to ambulate to the bathroom. Is clinically sober. Has been seen by social work. Initially was requesting inpatient detox however there were no facilities available currently. Plan was to keep the patient in the emergency department until a inpatient disposition can be met however the patient changed her mind. Stated that she would like to go home. She was going to take a taxi home. She was not driving. She was alert and oriented x3. GCS 15. She was informed that she could return to the emergency department at any point if she wished. She expressed understanding and agreement. Discharge Plan Departure Patient Disposition: Home Clinical Impression: Alcohol withdrawal, Alcohol intoxication Instructions: Alcohol Use Disorder Activity Restrictions/Additional Instructions: No driving for the next 24 hours or in the future if you partake in drinking alcohol. Return to the emergency department for new symptoms. Prescriptions: No Action gabapentin 400 mg capsule 400 mg PO 3XD naloxone 4 mg/actuation [place],Non-Aerosol 1 spray INTRANASAL Q2M PRN (Reason: Opioid Overdose) Rx Instructions: spray 1 dose into ONE nostril; alternate nostrils w each dose until help arrives lorazepam 1 mg Tablet 1 mg PO Q6HR PRN (Reason: Anxiety) Qty: 30 0RF norgestimate-ethinyl estradiol 0.25-35 mg-mcg tablet 1 tab PO DAILY Qty: 30 0RF clonidine HCl 0.1 mg tablet 0.1 mg PO 3XD PRN (Reason: Anxiety) Qty: 60 0RF trazodone 50 mg Tablet 50 mg PO PRN PRN (Reason: Sleep) Qty: 30 0RF levetiracetam 500 mg tablet 500 mg PO BID Qty: 60 0RF thiamine HCl (vitamin B1) [Vitamin B-1] 100 mg tablet 100 mg PO DAILY Qty: 30 0RF gabapentin 300 mg capsule 300 mg PO 3XD Qty: 90 0RF folic acid 1 mg tablet 1 mg PO DAILY Qty: 30 0RF hydroxyzine HCl 25 mg tablet 25 mg PO 3XD PRN (Reason: anxiety) Qty: 30 0RF fluticasone propionate 50 mcg/actuation [place],Suspension 1 spray INTRANASAL DAILY PRN (Reason: allergies) Qty: 1 0RF Rx Instructions: administer into each nostril buspirone 15 mg tablet 7.5 mg PO BID Qty: 90 0RF cholecalciferol (vitamin D3) [Vitamin D3] 25 mcg (1,000 unit) capsule 25 mcg PO 1XD Qty: 30 0RF Vitamin 27 mg iron- 800 mcg tablet 1 tab PO DAILY Qty: 100 0RF phenazopyridine [Pyridium] 100 mg tablet 100 mg PO TID PRN (Reason: pain) Qty: 10 0RF acamprosate tablet 1 tab PO 3XD WesTab Plus tablet 330 tab PO 1XD sertraline [Zoloft] 100 mg tablet 150 mg PO DAILY Referrals: Miscellaneous,Doctor, MD [Primary Care Provider] - Stand Alone Forms: Patient Portal/API
[2024-06-20] MEDS: SODIUM CHLORIDE 0.9% 1,000 ML 1000 ML IV (16:54)
--- NOTE | 2024-06-20 18:00 | PC.NURSE ---
Pt found to be vaping and have large bottle of alcohol in possession. Belongings locked up and put pt belonging area. Instructed that she may not vape or take etoh while pt. Curtain open for pt safety.
[2024-06-20] MEDS: NICOTINE 21 MG PATCH TOP (19:08)
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
--- NOTE | 2024-06-20 19:15 | PC.NURSE ---
pt wanting to leave, Dr Jasmine informed and explained to pt that she would need to find a ride before she could be dc
--- NOTE | 2024-06-20 19:21 | PC.NURSE ---
APPAREL MANAGER note: Watched patient walk with a cane slowly from bathroom to patient bed. Patient was able to wipe self and wash hands in bathroom.
== END 2024-06-20 20:20 | disposition home or self-care (01) ==
PROVIDERS: Physician Assistant; Emergency Provider Emergency Medicine
DX: F10.129 Alcohol abuse with intoxication, unspecified (principal); Y90.8 Blood alcohol level of 240 mg/100 ml or more; M25.572 Pain in left ankle and joints of left foot
CPT/HCPCS: 36415; 73610; 80053; 80305; 80320; 81015; 81025; 85025; 96361; 96374; 96375; 99284; J2060; J2405

== ENCOUNTER 2024-09-19 15:06 | Emergency (ER) | payer OTHER, SELFPAY ==
[2023-11-28 19:25] VITALS: BMI 21.2
[2024-09-19] VITALS (9 sets, daily range): BP systolic 105–124; BP diastolic 70–85; PULSE 68–87; RESP 13–21; TEMP 36.7–36.8; O2SAT 92–100
[2024-09-19 15:40] LABS: Add Manual Diff / Slide Review NO; Basophils Absolute Auto 0 /uL (0-100); Basophils Percent Auto 0.6 % (0-2); Eosinophils Absolute Auto 0 /uL (0-450); Eosinophils Percent Auto 0.3 % (2-4); Hematocrit 43.1 % (36-46); Hemoglobin 14.5 g/dL (12.0-16.0); Lymphocytes Absolute Auto 1700 /uL (1100-4500); Lymphocytes Percent Auto 47.3 % (25-40); Mean Corpuscular HGB Conc 33.7 % (30-36); Mean Corpuscular Hemoglobin 32.3 PG (26-34); Mean Corpuscular Volume 95.7 fL (80-100); Monocytes Absolute Auto 200 /uL (0-900); Monocytes Percent Auto 5.2 % (3-14); Neutrophils Absolute Auto 1700 /uL (1500-7000); Neutrophils Percent Auto 46.6 % (50-75); Platelet Count 284 X10^3/uL (150-400); Red Cell Distribution Width 14.1 % (11.6-14.8); White Blood Cell Count 3.6 X10^3/uL (4.5-11.0)
[2024-09-19 15:53] LABS: Acetaminophen < 10 ug/mL (10-30); Alanine Aminotransferase 51 IU/L (<35); Albumin 5.5 g/dL (3.5-5.0); Albumin Globulin Ratio 1.3 (1.0-2.8); Alkaline Phosphatase 59 U/L (38-126); Aspartate Aminotransferase 66 IU/L (14-36); BUN Creatinine Ratio 29.9 (6-22); Bilirubin Total 0.5 mg/dL (0.2-1.3); Blood Urea Nitrogen 20 mg/dL (7-17); Calcium 9.5 mg/dL (8.4-10.2); Carbon Dioxide 25 mmol/L (22-32); Chloride 102 mmol/L (98-107); Estimated Glomerular Filt Rate > 60 mL/min (>60); Ethanol (ETOH) > 300 mg/dL; Globulin 4.1 g/dL (1.7-4.1); Glucose 84 mg/dL (70-100); HEMOLYSIS 39 (0-50); Potassium 4.3 mmol/L (3.4-5.1); Salicylate < 1.0 mg/dL (<20); Sodium 145 mmol/L (137-145); Total Protein 9.6 g/dL (6.3-8.2)
--- NOTE | 2024-09-19 15:57 | PC.NURSE ---
Pt sitting up in gurney. Has slight headache. Pt is calm and cooperative with cares. Seizure pads in place.
--- NOTE | 2024-09-19 16:05 | PC.NURSE ---
Patient hiding a vape inside her right sock, socks wet and removed them placed new socks on patient. Patient refusing to hand vape to staff. Informed patient it was not negotiable and she could not use it while in hospital. Placed in patient belonging bag
--- NOTE | 2024-09-19 16:06 | PC.NURSE ---
SEARCH AND RESCUE OFFICER Note: Complete bed change done due to urine incontinence. Removed all patient items from reach. Patient had a vape hidden in her sock. RN removed vape from patients reach and placed with belongings.
[2024-09-19 16:09] LABS: Free T4, Direct Thyroxine 0.58 ng/dL (0.78-2.19)
--- NOTE | 2024-09-19 16:20 | ED_ITS ---
HPI - Alcohol <Marcella Grissom, DO - Last Filed: 09/24/24 02:47> General Chief Complaint: Toxicology Problem Stated Complaint: ETOH Withdrawal Time Seen by Provider: 09/19/24 16:03 Source: patient, EMS, RN notes reviewed and old records reviewed Mode of arrival: EMS Limitations: no limitations History of Present Illness HPI narrative: 34-year-old female history of chronic alcohol use, seizure disorder on Keppra and she states gabapentin. Patient states feels like she was going through alcohol withdrawal last drink was about 3:00 a.m. this morning she states she drinks about a gal alcohol daily. States she was feeling shaky she has had some nausea today. Generally felt unwell. She states she feels like she seems some spiders. She states she has had seizures with alcohol withdrawal in the past. Unclear if she has a known seizure disorder if this is from her alcohol use but she was on Keppra. She states she did take her Keppra this morning. No fevers has had some chills. No chest pain or shortness of breath. No other GI or urinary symptoms other than noted above. Generalized bleed feeling weak and shaky but has been able to ambulate. She states she vapes daily, denies any marijuana or recreational drugs. Related Data Home Medications Medication Instructions Recorded Confirmed gabapentin 400 mg capsule 400 mg PO 3XD 11/29/23 11/30/23 naloxone 4 mg/actuation nasal spray 1 spray intranasal Q2M PRN Opioid 12/01/23 12/01/23 Overdose sertraline 100 mg tablet (Zoloft) 150 mg PO DAILY 01/04/24 05/11/24 WesTab Plus 330 tab PO 1XD 05/11/24 05/11/24 acamprosate 1 tab PO 3XD 05/11/24 05/11/24 Previous Rx's Medication Instructions Recorded buspirone 15 mg tablet 7.5 mg (1/2 x 15 mg) PO BID #90 12/08/23 tabs cholecalciferol (vitamin D3) 25 25 mcg PO 1XD #30 caps 12/08/23 mcg (1,000 unit) capsule (Vitamin D3) clonidine HCl 0.1 mg tablet 0.1 mg PO 3XD PRN Anxiety #60 tabs 12/08/23 fluticasone propionate 50 1 spray intranasal DAILY PRN 12/08/23 mcg/actuation nasal allergies #1 g spray,suspension folic acid 1 mg tablet 1 mg PO DAILY #30 tabs 12/08/23 gabapentin 300 mg capsule 300 mg PO 3XD #90 caps 12/08/23 hydroxyzine HCl 25 mg tablet 25 mg PO 3XD PRN anxiety #30 tabs 12/08/23 levetiracetam 500 mg tablet 500 mg PO BID #60 tabs 12/08/23 lorazepam 1 mg tablet 1 mg PO Q6HR PRN Anxiety #30 tabs 12/08/23 norgestimate 0.25 mg-ethinyl 1 tab PO DAILY #30 tabs 12/08/23 estradiol 35 mcg tablet phenazopyridine 100 mg tablet 100 mg PO TID PRN pain #10 tabs 12/08/23 (Pyridium) vits no.130-ferrous fum 1 tab PO DAILY #100 tabs 12/08/23 27 mg iron-folic acid 800 mcg tablet ( Vitamin) thiamine HCl (vitamin B1) 100 mg 100 mg PO DAILY #30 tabs 12/08/23 tablet (Vitamin B-1) trazodone 50 mg tablet 50 mg PO PRN PRN Sleep #30 tabs 12/08/23 Allergies Allergy/AdvReac Type Severity Reaction Status Date / Time No Known Drug Allergies Allergy Verified 11/28/23 15:18 Review of Systems <Marcella Grissom DO - Last Filed: 09/24/24 02:47> Review of Systems ROS Unobtainable: All systems reviewed & are unremarkable except as noted in HPI and below Patient History <Marcella Grissom DO - Last Filed: 09/24/24 02:47> Medical History Alcohol use disorder Social History household members: family Smoking Status: Current every day smoker alcohol intake: current Smoking Status: Current every day smoker tobacco type: vaping alcohol intake frequency: 3 or more drinks per day Alcohol type: hard liquor Exam <Marcella Grissom DO - Last Filed: 09/24/24 02:47> Narrative Exam Narrative: GENERAL: Alert and oriented x three, female in moderate distress HEENT: Head normocephalic, atraumatic, EOMI, pupils reactive, face symmetric, moist mucous membranes NECK: Supple, full range of motion CARDIOVASCULAR: Regular rate and rhythm without murmurs, rubs or gallops. RESPIRATORY: Breath sounds equal bilaterally, no wheezes rales or rhonchi. No tachypnea or accessory muscle use. ABDOMEN: Soft, nontender. Normoactive bowel sounds all 4 quadrants. No guarding or rebound, rigidity, no mass : No CVA tenderness EXTREMITIES: Normal range of motion, no clubbing or edema. Neurovascularly intact NEUROLOGICAL: Cranial nerves II through XII grossly intact. Moving all extremities. Mild tremor. SKIN: Warm, dry, no petechiae, no rashes or lesions. Initial Vital Signs Initial Vital Signs: Vital Signs Pulse Rate 82 09/19/24 15:12 Blood Pressure 114/79 09/19/24 15:12 Pulse Oximetry 99 09/19/24 15:12 <Ricci Jasmine, DO - Last Filed: 09/19/24 20:43> Initial Vital Signs Initial Vital Signs: Vital Signs Pulse Rate 82 09/19/24 15:12 Blood Pressure 114/79 09/19/24 15:12 Pulse Oximetry 99 09/19/24 15:12 Course <Marcella Grissom, DO - Last Filed: 09/24/24 02:47> Orders Ordered: Discontinued Medications Levetiracetam (Levetiracetam 250 Mg Tablet) 500 mg PO NOW ONE Stop: 09/19/24 16:37 Last Admin: 09/19/24 16:40 Dose: 500 mg Documented By: Phenobarbital (Phenobarbital 65 Mg/Ml Vial) 260 mg IV NOW ONE Stop: 09/19/24 16:37 Last Admin: 09/19/24 16:40 Dose: 260 mg Documented By: Vital Signs Vital signs: Vital Signs - 8 hr 09/19/24 15:12 09/19/24 15:12 09/19/24 15:30 Temperature Pulse Rate 82 78 Respiratory Rate 19 Blood Pressure 114/79 Pulse Oximetry 99 100 Oxygen Delivery Method 09/19/24 15:30 09/19/24 15:41 09/19/24 16:00 Temperature 98.1 F Pulse Rate 87 Respiratory Rate 21 Blood Pressure 106/70 106/70 115/79 Pulse Oximetry 97 Oxygen Delivery Method Room Air 09/19/24 16:00 09/19/24 16:30 09/19/24 16:30 Temperature Pulse Rate 87 85 Respiratory Rate 18 14 Blood Pressure 105/74 Pulse Oximetry 98 99 Oxygen Delivery Method 09/19/24 17:00 09/19/24 17:00 09/19/24 17:30 Temperature Pulse Rate 86 Respiratory Rate 16 Blood Pressure 122/85 121/71 Pulse Oximetry 92 Oxygen Delivery Method 09/19/24 17:30 09/19/24 18:00 09/19/24 18:00 Temperature Pulse Rate 86 78 Respiratory Rate 13 17 Blood Pressure 112/71 Pulse Oximetry 98 98 Oxygen Delivery Method Room Air 09/19/24 19:32 Temperature 98.2 F Pulse Rate 68 Respiratory Rate 18 Blood Pressure 124/78 Pulse Oximetry 98 Oxygen Delivery Method Room Air <Ricci Jasmine DO - Last Filed: 09/19/24 20:43> Orders Ordered: Discontinued Medications Levetiracetam (Levetiracetam 250 Mg Tablet) 500 mg PO NOW ONE Stop: 09/19/24 16:37 Last Admin: 09/19/24 16:40 Dose: 500 mg Documented By: Phenobarbital (Phenobarbital 65 Mg/Ml Vial) 260 mg IV NOW ONE Stop: 09/19/24 16:37 Last Admin: 09/19/24 16:40 Dose: 260 mg Documented By: Vital Signs Vital signs: Vital Signs - 8 hr 09/19/24 15:12 09/19/24 15:12 09/19/24 15:30 Temperature Pulse Rate 82 78 Respiratory Rate 19 Blood Pressure 114/79 Pulse Oximetry 99 100 Oxygen Delivery Method 09/19/24 15:30 09/19/24 15:41 09/19/24 16:00 Temperature 98.1 F Pulse Rate 87 Respiratory Rate 21 Blood Pressure 106/70 106/70 115/79 Pulse Oximetry 97 Oxygen Delivery Method Room Air 09/19/24 16:00 09/19/24 16:30 09/19/24 16:30 Temperature Pulse Rate 87 85 Respiratory Rate 18 14 Blood Pressure 105/74 Pulse Oximetry 98 99 Oxygen Delivery Method 09/19/24 17:00 09/19/24 17:00 09/19/24 17:30 Temperature Pulse Rate 86 Respiratory Rate 16 Blood Pressure 122/85 121/71 Pulse Oximetry 92 Oxygen Delivery Method 09/19/24 17:30 09/19/24 18:00 09/19/24 18:00 Temperature Pulse Rate 86 78 Respiratory Rate 13 17 Blood Pressure 112/71 Pulse Oximetry 98 98 Oxygen Delivery Method Room Air 09/19/24 19:32 Temperature 98.2 F Pulse Rate 68 Respiratory Rate 18 Blood Pressure 124/78 Pulse Oximetry 98 Oxygen Delivery Method Room Air MDM - Alcohol <Marcella Grissom, DO - Last Filed: 09/24/24 02:47> Lab Data 09/19/24 15:31 09/19/24 15:31 Labs: Lab Results 09/19/24 Range/Units 15:31 WBC 3.6 L (4.5-11.0) X10^3/uL RBC 4.50 (4.0-5.2) X10^6/uL Hgb 14.5 (12.0-16.0) g/dL Hct 43.1 (36-46) % MCV 95.7 (80-100) fL MCH 32.3 (26-34) PG MCHC 33.7 (30-36) % RDW 14.1 (11.6-14.8) % Plt Count 284 (150-400) X10^3/uL Neut % (Auto) 46.6 L (50-75) % Lymph % (Auto) 47.3 H (25-40) % [place] % (Auto) 5.2 (3-14) % Eos % (Auto) 0.3 L (2-4) % Baso % (Auto) 0.6 (0-2) % Neut # (Auto) 1700 (7578-4589) /uL Lymph # (Auto) 1700 (3505-6105) /uL [place] # (Auto) 200 (0-900) /uL Eos # (Auto) 0 (0-450) /uL Baso # (Auto) 0 (0-100) /uL Sodium 145 (137-145) mmol/L Potassium 4.3 (3.4-5.1) mmol/L Chloride 102 (98-107) mmol/L Carbon Dioxide 25 (22-32) mmol/L BUN 20 H (7-17) mg/dL Creatinine 0.67 (0.52-1.04) mg/dL Estimated GFR > 60 (>60) mL/min BUN/Creatinine Ratio 29.9 H (6-22) Glucose 84 (70-100) mg/dL Calcium 9.5 (8.4-10.2) mg/dL Total Bilirubin 0.5 (0.2-1.3) mg/dL AST 66 H (14-36) IU/L ALT 51 H (<35) IU/L Alkaline Phosphatase 59 (38-126) U/L Total Protein 9.6 H (6.3-8.2) g/dL Albumin 5.5 H (3.5-5.0) g/dL Globulin 4.1 (1.7-4.1) g/dL Albumin/Globulin Ratio 1.3 (1.0-2.8) TSH 0.301 L (0.47-4.68) uIU/mL Free T4 0.58 L (0.78-2.19) ng/dL Salicylates < 1.0 (<20) mg/dL Acetaminophen < 10 (10-30) ug/mL Levetiracetam 7.0 L (10.0-40.0) ug/mL Ethyl Alcohol > 300 H ( - 10) mg/dL MDM Narrative Medical decision making narrative: Labs show white count of 3.6 patient's been low fairly frequently on prior labs. Hemoglobin is 14.5 platelets are 284 predominance of lymphocytes. CMP shows a BUN of 20 otherwise normal electrolytes creatinine 0.67 glucose 84 AST 66 ALT is 51 slightly up from prior in June of 2024 bilirubin is normal free T4 0.58 with a TSH 0.301 ETOH is greater than 300, Tylenol salicylates are negative. Levetiracetam level Discussed with the patient was loaded with phenobarbital 260 mg, was also given her oral dose of Keppra. She does not wish for inpatient treatment she would prefer to be discharged home but isn't quite able to ambulate safely. Signed out to Dr. Jasmine but with patient goal of discharge with resources from [facility]. Patient vitals have been stable. She was still fairly unsteady on her feet but is alert and conversant. Dr Jasmine: Received turned over. Review patient's history and physical. Patient is alert. Ambulated to the bathroom without assistance. Declined offers for rehab/detox. Patient would like to be discharged. <Ricci Jasmine, DO - Last Filed: 09/19/24 20:43> Lab Data Labs: Lab Results 09/19/24 Range/Units 15:31 WBC 3.6 L (4.5-11.0) X10^3/uL RBC 4.50 (4.0-5.2) X10^6/uL Hgb 14.5 (12.0-16.0) g/dL Hct 43.1 (36-46) % MCV 95.7 (80-100) fL MCH 32.3 (26-34) PG MCHC 33.7 (30-36) % RDW 14.1 (11.6-14.8) % Plt Count 284 (150-400) X10^3/uL Neut % (Auto) 46.6 L (50-75) % Lymph % (Auto) 47.3 H (25-40) % [place] % (Auto) 5.2 (3-14) % Eos % (Auto) 0.3 L (2-4) % Baso % (Auto) 0.6 (0-2) % Neut # (Auto) 1700 (4415-5586) /uL Lymph # (Auto) 1700 (1720-1513) /uL [place] # (Auto) 200 (0-900) /uL Eos # (Auto) 0 (0-450) /uL Baso # (Auto) 0 (0-100) /uL Sodium 145 (137-145) mmol/L Potassium 4.3 (3.4-5.1) mmol/L Chloride 102 (98-107) mmol/L Carbon Dioxide 25 (22-32) mmol/L BUN 20 H (7-17) mg/dL Creatinine 0.67 (0.52-1.04) mg/dL Estimated GFR > 60 (>60) mL/min BUN/Creatinine Ratio 29.9 H (6-22) Glucose 84 (70-100) mg/dL Calcium 9.5 (8.4-10.2) mg/dL Total Bilirubin 0.5 (0.2-1.3) mg/dL AST 66 H (14-36) IU/L ALT 51 H (<35) IU/L Alkaline Phosphatase 59 (38-126) U/L Total Protein 9.6 H (6.3-8.2) g/dL Albumin 5.5 H (3.5-5.0) g/dL Globulin 4.1 (1.7-4.1) g/dL Albumin/Globulin Ratio 1.3 (1.0-2.8) TSH 0.301 L (0.47-4.68) uIU/mL Free T4 0.58 L (0.78-2.19) ng/dL Salicylates < 1.0 (<20) mg/dL Acetaminophen < 10 (10-30) ug/mL Levetiracetam 7.0 L (10.0-40.0) ug/mL Ethyl Alcohol > 300 H ( - 10) mg/dL MDM Narrative Medical decision making narrative: Labs show white count of 3.6 patient's been low fairly frequently on prior labs. Hemoglobin is 14.5 platelets are 284 predominance of lymphocytes. CMP shows a BUN of 20 otherwise normal electrolytes creatinine 0.67 glucose 84 AST 66 ALT is 51 slightly up from prior in June of 2024 bilirubin is normal free T4 0.58 with a TSH 0.301 ETOH is greater than 300, Tylenol salicylates are negative. Levetiracetam level Discussed with the patient was loaded with phenobarbital 260 mg, was also given her oral dose of Keppra. Dr Jasmine: Received turned over. Review patient's history and physical. Patient is alert. Ambulated to the bathroom without assistance. Declined offers for rehab/detox. Patient would like to be discharged. Discharge Plan Departure Patient Disposition: Home Clinical Impression: Alcohol withdrawal syndrome Activity Restrictions/Additional Instructions: If you are interested for resources social work happy to provide them I do recommend that you are someone who would benefit from medical detox but as you have elected to return home you can return at any time. Continue your home medications as prescribed. Please return for new or worsening symptoms any seizure activity, hallucinations, persistent vomiting, chest pain, shortness of breath, black or bloody stools, new swelling of your extremities or other new or concerning changes. Prescriptions: No Action gabapentin 400 mg capsule 400 mg PO 3XD naloxone 4 mg/actuation [place],Non-Aerosol 1 spray INTRANASAL Q2M PRN (Reason: Opioid Overdose) Rx Instructions: spray 1 dose into ONE nostril; alternate nostrils w each dose until help arrives lorazepam 1 mg Tablet 1 mg PO Q6HR PRN (Reason: Anxiety) Qty: 30 0RF norgestimate-ethinyl estradiol 0.25-35 mg-mcg tablet 1 tab PO DAILY Qty: 30 0RF clonidine HCl 0.1 mg tablet 0.1 mg PO 3XD PRN (Reason: Anxiety) Qty: 60 0RF trazodone 50 mg Tablet 50 mg PO PRN PRN (Reason: Sleep) Qty: 30 0RF levetiracetam 500 mg tablet 500 mg PO BID Qty: 60 0RF thiamine HCl (vitamin B1) [Vitamin B-1] 100 mg tablet 100 mg PO DAILY Qty: 30 0RF gabapentin 300 mg capsule 300 mg PO 3XD Qty: 90 0RF folic acid 1 mg tablet 1 mg PO DAILY Qty: 30 0RF hydroxyzine HCl 25 mg tablet 25 mg PO 3XD PRN (Reason: anxiety) Qty: 30 0RF fluticasone propionate 50 mcg/actuation [place],Suspension 1 spray INTRANASAL DAILY PRN (Reason: allergies) Qty: 1 0RF Rx Instructions: administer into each nostril buspirone 15 mg tablet 7.5 mg PO BID Qty: 90 0RF cholecalciferol (vitamin D3) [Vitamin D3] 25 mcg (1,000 unit) capsule 25 mcg PO 1XD Qty: 30 0RF Vitamin 27 mg iron- 800 mcg tablet 1 tab PO DAILY Qty: 100 0RF phenazopyridine [Pyridium] 100 mg tablet 100 mg PO TID PRN (Reason: pain) Qty: 10 0RF acamprosate tablet 1 tab PO 3XD WesTab Plus tablet 330 tab PO 1XD sertraline [Zoloft] 100 mg tablet 150 mg PO DAILY Referrals: Miscellaneous,Doctor, MD [Primary Care Provider] - Stand Alone Forms: Patient Portal/API/Survey
[2024-09-19 16:23] LABS: Thyroid Stimulating Hormone 0.301 uIU/mL (0.47-4.68)
--- NOTE | 2024-09-19 16:30 | PC.NURSE ---
Pt getting out of bed to vape. Belongings locked for safety. Process explained to patient w/ verbalized understanding. Pt states if she can't vape she would like to leave, Dr. Grissom in to see patient during this conversation.
[2024-09-19] MEDS: PHENobarbital 65 MG/ML VIAL 260 MG IV (16:40)
[2024-09-19] MEDS: levETIRAcetam 250 MG TABLET 500 MG PO (16:40)
--- NOTE | 2024-09-19 16:54 | PC.NURSE ---
Pt sitting up in [facility]. Appears in NAD. ART FRAMING MANAGER at bedside. MD wilhelm for PO intake. Food brought to bedside.
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
--- NOTE | 2024-09-19 18:59 | PC.NURSE ---
Assisted to ambulate around unit. Pt very shaky and unsteady on feet. Not able to ambulate independently. aware.
== END 2024-09-19 19:40 | disposition home or self-care (01) ==
PROVIDERS: Emergency Medicine; Emergency Provider Emergency Medicine
DX: F10.939 Alcohol use, unspecified with withdrawal, unspecified (principal); R53.1 Weakness
CPT/HCPCS: 80053; 80177; 80320; 80329; 84439; 84443; 85025; 96374; 99284; G0480; J2560

== ENCOUNTER 2025-03-03 19:31 | Emergency (ER) | payer OTHER, SELFPAY ==
[2023-11-28 19:25] VITALS: BMI 21.2
[2025-03-03] VITALS (11 sets, daily range): BP systolic 98–115; BP diastolic 60–80; PULSE 73–91; RESP 13–36; TEMP 36.3; O2SAT 95–100; BMI 19.3
--- NOTE | 2025-03-03 20:28 | ED.GENADULT ---
HPI - General Adult General Chief complaint: Toxicology Problem Stated complaint: fall while intoxicated, ingestion Time Seen by Provider: 03/03/25 19:59 Source: patient Mode of arrival: EMS History of Present Illness HPI narrative: 35-year-old female reports discharge from detox, denies alcohol use however family members apparently reports she had been drinking at home, had fall, unclear if there is any loss of consciousness. Denies have any pain or injury symptoms. Specifically she denies headache, neck pain, upper mid lower back pain, chest pain, flank pain, abdominopelvic pain. She denies pain to upper or lower extremities. Related Data Home Medications ?Medication ?Instructions ?Recorded ?Confirmed gabapentin 400 mg capsule 400 mg PO 3XD 11/29/23 11/30/23 naloxone 4 mg/actuation nasal spray 1 spray intranasal Q2M PRN Opioid 12/01/23 12/01/23 Overdose sertraline 100 mg tablet (Zoloft) 150 mg PO DAILY 01/04/24 05/11/24 WesTab Plus 330 tab PO 1XD 05/11/24 05/11/24 acamprosate 1 tab PO 3XD 05/11/24 05/11/24 Previous Rx's ?Medication ?Instructions ?Recorded buspirone 15 mg tablet 7.5 mg (1/2 x 15 mg) PO BID #90 12/08/23 tabs cholecalciferol (vitamin D3) 25 25 mcg PO 1XD #30 caps 12/08/23 mcg (1,000 unit) capsule (Vitamin D3) clonidine HCl 0.1 mg tablet 0.1 mg PO 3XD PRN Anxiety #60 tabs 12/08/23 fluticasone propionate 50 1 spray intranasal DAILY PRN 12/08/23 mcg/actuation nasal allergies #1 g spray,suspension folic acid 1 mg tablet 1 mg PO DAILY #30 tabs 12/08/23 gabapentin 300 mg capsule 300 mg PO 3XD #90 caps 12/08/23 hydroxyzine HCl 25 mg tablet 25 mg PO 3XD PRN anxiety #30 tabs 12/08/23 levetiracetam 500 mg tablet 500 mg PO BID #60 tabs 12/08/23 lorazepam 1 mg tablet 1 mg PO Q6HR PRN Anxiety #30 tabs 12/08/23 norgestimate 0.25 mg-ethinyl 1 tab PO DAILY #30 tabs 12/08/23 estradiol 0.035 mg tablet phenazopyridine 100 mg tablet 100 mg PO TID PRN pain #10 tabs 12/08/23 (Pyridium) vits no.130-ferrous fum 1 tab PO DAILY #100 tabs 12/08/23 27 mg iron-folic acid 800 mcg tablet ( Vitamin) thiamine HCl (vitamin B1) 100 mg 100 mg PO DAILY #30 tabs 12/08/23 tablet (Vitamin B-1) trazodone 50 mg tablet 50 mg PO PRN PRN Sleep #30 tabs 12/08/23 Allergies Allergy/AdvReac Type Severity Reaction Status Date / Time No Known Drug Allergies Allergy Verified 03/03/25 19:38 Patient History Medical History Alcohol use disorder Social History household members: family Smoking Status: Current every day smoker alcohol intake: current Smoking Status: Current every day smoker tobacco type: vaping alcohol intake frequency: 3 or more drinks per day Alcohol type: hard liquor Exam Narrative Exam Narrative: GENERAL: Well-developed patient, in mild distress. HEAD: Atraumatic. Normocephalic. EYES: Pupils equal round and reactive. Extraocular motions intact. No scleral icterus. No injection or drainage. ENT: Nose without bleeding, purulent drainage. Throat without erythema, tonsillar hypertrophy or exudate. Airway patent. NECK: Trachea midline. Non tender CARDIOVASCULAR: Regular rate and rhythm without murmurs, gallops, or rubs. RESPIRATORY: Clear to auscultation. Breath sounds equal bilaterally. No wheezes, rales, or rhonchi. GASTROINTESTINAL: Abdomen soft, non-tender, nondistended. EXTREMITIES: No edema or joint tenderness. BACK: Nontender without deformity or crepitance. No flank tenderness. NEURO: AOx3. Motor functions grossly nonfocal. SKIN: No rash or erythema of visible areas Initial Vital Signs Initial Vital Signs: Vital Signs Pulse Rate 83 03/03/25 19:36 Blood Pressure 109/71 03/03/25 19:36 Pulse Oximetry 95 03/03/25 19:36 Course Orders Ordered: Discontinued Medications Nicotine (Nicotine 21 Mg Patch) 21 mg TOP NOW ONE Stop: 03/03/25 23:46 Last Admin: 03/04/25 00:39 Dose: 21 mg Documented By: [facility] Vital Signs Vital signs: Vital Signs - 8 hr 03/03/25 23:30 03/03/25 23:30 03/04/25 00:00 Pulse Rate 88 91 H Respiratory Rate 18 17 Blood Pressure 112/80 Pulse Oximetry 99 100 03/04/25 00:00 03/04/25 00:30 03/04/25 00:30 Pulse Rate 80 Respiratory Rate 18 Blood Pressure 100/68 104/68 Pulse Oximetry 96 03/04/25 01:00 03/04/25 01:00 03/04/25 01:30 Pulse Rate 87 Respiratory Rate 15 Blood Pressure 101/57 L 108/73 Pulse Oximetry 94 03/04/25 01:30 03/04/25 02:00 03/04/25 02:00 Pulse Rate 90 79 Respiratory Rate 14 17 Blood Pressure 121/80 Pulse Oximetry 95 97 03/04/25 02:30 03/04/25 02:30 03/04/25 03:00 Pulse Rate 76 87 Respiratory Rate 18 15 Blood Pressure 126/78 Pulse Oximetry 96 96 03/04/25 03:00 03/04/25 03:30 03/04/25 03:30 Pulse Rate 83 Respiratory Rate 15 Blood Pressure 118/69 124/76 Pulse Oximetry 96 03/04/25 04:00 03/04/25 04:00 03/04/25 04:30 Pulse Rate 84 Respiratory Rate 11 L Blood Pressure 122/88 124/90 Pulse Oximetry 95 03/04/25 04:30 Pulse Rate 80 Respiratory Rate 11 L Blood Pressure Pulse Oximetry 98 Medical Decision Making Lab Data Lab results reviewed: Yes I reviewed the patient's lab results. Lab results narrative: White blood cell count 6100, hemoglobin 11.9, platelets adequate. Glucose 86. BUN 19 with creatinine 0.59 normal renal function. Normal electrolytes. Normal serum CO2 27. BAL 252 @1945. LFTs show mild transaminitis, normal T bili and alkaline phosphatase. UDS positive for benzodiazepine. 03/03/25 19:44 03/03/25 19:44 Labs: Lab Results 03/03/25 03/03/25 Range/Units 19:44 21:15 WBC 6.1 (4.5-11.0) X10^3/uL RBC 3.67 L (4.0-5.2) X10^6/uL Hgb 11.9 L (12.0-16.0) g/dL Hct 34.8 L (36-46) % MCV 94.7 (80-100) fL MCH 32.4 (26-34) PG MCHC 34.2 (30-36) % RDW 13.6 (11.6-14.8) % Plt Count 205 (150-400) X10^3/uL Neut % (Auto) 55.9 (50-75) % Lymph % (Auto) 36.0 (25-40) % [place] % (Auto) 6.8 (3-14) % Eos % (Auto) 0.8 L (2-4) % Baso % (Auto) 0.5 (0-2) % Neut # (Auto) 3400 (8701-5070) /uL Lymph # (Auto) 2200 (2445-5190) /uL [place] # (Auto) 400 (0-900) /uL Eos # (Auto) 0 (0-450) /uL Baso # (Auto) 0 (0-100) /uL Sodium 141 (137-145) mmol/L Potassium 4.2 (3.4-5.1) mmol/L Chloride 106 (98-107) mmol/L Carbon Dioxide 27 (22-32) mmol/L BUN 14 (7-17) mg/dL Creatinine 0.59 (0.52-1.04) mg/dL Estimated GFR > 60 (>60) mL/min BUN/Creatinine Ratio 23.7 H (6-22) Glucose 86 (70-99) mg/dL Calcium 8.7 (8.4-10.2) mg/dL Total Bilirubin 0.3 (0.2-1.3) mg/dL AST 78 H (14-36) IU/L ALT 47 H (<35) IU/L Alkaline Phosphatase 54 (38-126) U/L Total Protein 7.1 (6.3-8.2) g/dL Albumin 4.2 (3.5-5.0) g/dL Globulin 2.9 (1.7-4.1) g/dL Albumin/Globulin Ratio 1.4 (1.0-2.8) U Opiates 300ng/mL cut Negative (Negative) Ur Oxycodone Screen Negative (Negative) Urine Methadone Screen Negative (Negative) Ur Barbiturates Screen Negative (Negative) U Tricyclic Antidepress Negative (Negative) Ur Phencyclidine Scrn Negative (Negative) Ur Amphetamines Screen Negative (Negative) U Methamphetamines Scrn Negative (Negative) Ur MDMA Scrn (Ecstasy) Negative (Negative) U Benzodiazepines Scrn Positive H (Negative) Urine Cocaine Screen Negative (Negative) U Marijuana (THC) Screen Negative (Negative) Urine pH Normal (Normal) Urine Specific [place] Normal (Normal) Ethyl Alcohol 252 H (<10) mg/dL Ur Creatinine Normal (Normal) Point of Care Testing Test Results Negative Point of care testing: Point of Care Testing Test Results Negative MDM Narrative Medical decision making narrative: 35-year-old female denies use of alcohol, family members reportedly had been drinking with thereafter discharged from detox center. Patient denies suicidal or homicidal ideation. She also denies alcohol use but has alcohol on her breath. No family immediately available. Labs pending Lab data: White blood cell count 6100, hemoglobin 11.9, platelets adequate. Glucose 86. BUN 19 with creatinine 0.59 normal renal function. Normal electrolytes. Normal serum CO2 27. BAL 252 @1945. LFTs show mild transaminitis, normal T bili and alkaline phosphatase. UDS positive for benzodiazepine. 0500, further observed, cooperative, clear speech, ambulatory in the department with steady gait, no signs symptoms of alcohol withdrawal or psychosis. She would like to be discharged. Then she will be taking taxi to her home. Denies SI/HI. She does not want to talk to family welfare social work professor for detox services or other evaluations. Discharged home per patient request. Discharge Plan Departure Patient Disposition: Home Clinical Impression: Alcohol intoxication Activity Restrictions/Additional Instructions: (discharge occurred during EMR down time, see printed were document discharge information scan for chart) Prescriptions: No Action gabapentin 400 mg capsule 400 mg PO 3XD naloxone 4 mg/actuation [place],Non-Aerosol 1 spray INTRANASAL Q2M PRN (Reason: Opioid Overdose) Rx Instructions: spray 1 dose into ONE nostril; alternate nostrils w each dose until help arrives lorazepam 1 mg Tablet 1 mg PO Q6HR PRN (Reason: Anxiety) Qty: 30 0RF norgestimate-ethinyl estradiol 0.25-35 mg-mcg tablet 1 tab PO DAILY Qty: 30 0RF clonidine HCl 0.1 mg tablet 0.1 mg PO 3XD PRN (Reason: Anxiety) Qty: 60 0RF trazodone 50 mg Tablet 50 mg PO PRN PRN (Reason: Sleep) Qty: 30 0RF levetiracetam 500 mg tablet 500 mg PO BID Qty: 60 0RF thiamine HCl (vitamin B1) [Vitamin B-1] 100 mg tablet 100 mg PO DAILY Qty: 30 0RF gabapentin 300 mg capsule 300 mg PO 3XD Qty: 90 0RF folic acid 1 mg tablet 1 mg PO DAILY Qty: 30 0RF hydroxyzine HCl 25 mg tablet 25 mg PO 3XD PRN (Reason: anxiety) Qty: 30 0RF fluticasone propionate 50 mcg/actuation [place],Suspension 1 spray INTRANASAL DAILY PRN (Reason: allergies) Qty: 1 0RF Rx Instructions: administer into each nostril buspirone 15 mg tablet 7.5 mg PO BID Qty: 90 0RF cholecalciferol (vitamin D3) [Vitamin D3] 25 mcg (1,000 unit) capsule 25 mcg PO 1XD Qty: 30 0RF Vitamin 27 mg iron- 800 mcg tablet 1 tab PO DAILY Qty: 100 0RF phenazopyridine [Pyridium] 100 mg tablet 100 mg PO TID PRN (Reason: pain) Qty: 10 0RF acamprosate tablet 1 tab PO 3XD WesTab Plus tablet 330 tab PO 1XD sertraline [Zoloft] 100 mg tablet 150 mg PO DAILY Referrals: Miscellaneous,Doctor, MD [Primary Care Provider, Medical] Stand Alone Forms: Patient Portal/API
--- NOTE | 2025-03-03 20:36 | PC.NURSE ---
Placed purwick on patient.
[2025-03-03 21:29] LABS: Alanine Aminotransferase 47 IU/L (<35); Albumin 4.2 g/dL (3.5-5.0); Albumin Globulin Ratio 1.4 (1.0-2.8); Alkaline Phosphatase 54 U/L (38-126); Aspartate Aminotransferase 78 IU/L (14-36); BUN Creatinine Ratio 23.7 (6-22); Bilirubin Total 0.3 mg/dL (0.2-1.3); Blood Urea Nitrogen 14 mg/dL (7-17); Calcium 8.7 mg/dL (8.4-10.2); Carbon Dioxide 27 mmol/L (22-32); Chloride 106 mmol/L (98-107); Estimated Glomerular Filt Rate > 60 mL/min (>60); Globulin 2.9 g/dL (1.7-4.1); Glucose 86 mg/dL (70-99); HEMOLYSIS < 15 (0-50); Potassium 4.2 mmol/L (3.4-5.1); Sodium 141 mmol/L (137-145); Total Protein 7.1 g/dL (6.3-8.2)
[2025-03-03 21:30] LABS: UR Morphine/Opiate cutoff 300 Negative (Negative); Ur Specific Gravity Normal (Normal); Urine Amphetamines Negative (Negative); Urine Barbiturates Negative (Negative); Urine Benzodiazepines Positive (Negative); Urine Cocaine Negative (Negative); Urine Creatinine Normal (Normal); Urine MDMA Negative (Negative); Urine Methadone Negative (Negative); Urine Methamphetamines Negative (Negative); Urine Oxycodone Negative (Negative); Urine Phencyclidine Negative (Negative); Urine Tetrahydrocannabinol Negative (Negative); Urine Tricyclic Antidepressant Negative (Negative); Urine pH Normal (Normal)
[2025-03-03 21:35] LABS: Add Manual Diff / Slide Review NO; Basophils Absolute Auto 0 /uL (0-100); Basophils Percent Auto 0.5 % (0-2); Eosinophils Absolute Auto 0 /uL (0-450); Eosinophils Percent Auto 0.8 % (2-4); Hematocrit 34.8 % (36-46); Hemoglobin 11.9 g/dL (12.0-16.0); Lymphocytes Absolute Auto 2200 /uL (1100-4500); Mean Corpuscular HGB Conc 34.2 % (30-36); Mean Corpuscular Hemoglobin 32.4 PG (26-34); Mean Corpuscular Volume 94.7 fL (80-100); Monocytes Absolute Auto 400 /uL (0-900); Monocytes Percent Auto 6.8 % (3-14); Neutrophils Absolute Auto 3400 /uL (1500-7000); Neutrophils Percent Auto 55.9 % (50-75); Platelet Count 205 X10^3/uL (150-400); Red Blood Cell Count 3.67 X10^6/uL (4.0-5.2); Red Cell Distribution Width 13.6 % (11.6-14.8); White Blood Cell Count 6.1 X10^3/uL (4.5-11.0)
[2025-03-03 21:45] LABS: Ethanol (ETOH) 252 mg/dL (<10)
[2025-03-04] VITALS (10 sets, daily range): BP systolic 100–126; BP diastolic 57–90; PULSE 76–91; RESP 11–18; O2SAT 94–100
[2025-03-04] MEDS: NICOTINE 21 MG PATCH TOP (00:39)
== END 2025-03-04 05:31 | disposition home or self-care (01) ==
PROVIDERS: Emergency Provider Emergency Medicine
DX: F10.129 Alcohol abuse with intoxication, unspecified (principal); W19.XXXA Unspecified fall, initial encounter; Y90.8 Blood alcohol level of 240 mg/100 ml or more; F17.290 Nicotine dependence, other tobacco product, uncomplicated
CPT/HCPCS: 80053; 80305; 80320; 81025; 85025; 99283